=== PATIENT | female | born 1990 | race Caucasian/White ===

== ENCOUNTER 2020-01-12 11:55 | Outpatient (NON) | payer BC, SELFPAY ==
[2020-01-12 23:36] LABS: SARS-CoV-2 RNA PCR Negative
== END 2020-01-12 11:56 ==
PROVIDERS: PCP Family Medicine; Visit Provider Physician Assistant Medical
DX: Z20.828 Contact with and (suspected) exposure to other viral communicable diseases (principal); J02.9 Acute pharyngitis, unspecified; R05 Cough
CPT/HCPCS: 87635; C9803; U0003

== ENCOUNTER 2020-01-21 06:51 | Outpatient (NON) | payer BC, SELFPAY ==
[2020-01-21 17:22] LABS: SARS-CoV-2 RNA PCR Negative
== END 2020-01-21 06:52 ==
LOC: ANHCOVIDDT 06:55
PROVIDERS: PCP Family Medicine; Visit Provider Physician Assistant Medical
DX: R05 Cough (principal); J02.9 Acute pharyngitis, unspecified; Z20.828 Contact with and (suspected) exposure to other viral communicable diseases
CPT/HCPCS: 87635; C9803; U0003

== ENCOUNTER 2022-08-14 10:28 | Outpatient (CLI) | payer OTHER, SELFPAY ==
[2022-08-14 11:25] LABS: Kit Draw Collected
== END 2022-08-14 10:29 | disposition home or self-care (01) ==
LOC: ANHGOSHLAB 10:29
PROVIDERS: PCP Family Medicine; Visit Provider Nurse Practitioner Family
DX: F41.9 Anxiety disorder, unspecified (principal); R53.83 Other fatigue
CPT/HCPCS: 36415

== ENCOUNTER → 2023-05-15 10:38 | Outpatient (CLI) | payer OTHER, SELFPAY ==
--- NOTE | ~2023-05-15 | XR_ITS ---
Right foot Technique: AP, oblique, and lateral views were obtained. Clinical History: Heel pain Findings: No acute fracture or dislocation is seen. Osseous alignment is anatomic. Joint spaces are p reserved without erosive or degenerative change. Soft tissues are unremarkable. Impression: Unremarkable right foot radiographs. Reviewed, dictated and finalized at [facility]. RAL DIRECTOR AND EMBALMER Impression: Unremarkable right foot radiographs.
== END ==
PROVIDERS: PCP Family Medicine; Visit Provider Nurse Practitioner Family
DX: M79.671 Pain in right foot (principal)
CPT/HCPCS: 73630

== ENCOUNTER 2024-01-02 12:51 | Outpatient (CLI) | payer OTHER, SELFPAY ==
--- NOTE | ~2024-01-02 | MMUS_ITS ---
EXAMINATION: US breast RT limited, MM diagnostic chad BI w padmini HISTORY: Palpable right breast abnormality TECHNIQUE: Additional 3-D tomosynthesis images of the breasts were performed and synthetic 2-D images were generated. CAD analysis was submitted and interpreted. High resolution Limited right breast ult rasound was performed. COMPARISON: None BREAST PARENCHYMAL COMPOSITION: Not dense: There are scattered areas of fibroglandular density. FINDINGS: MAMMOGRAPHIC FINDINGS: There are no suspicious masses, calcifications or architectural distortion in either breast to sugges t malignancy. ULTRASOUND: Limited right breast ultrasound: Normal heterogeneous echotexture without focal solid or cystic mass. IMPRESSION: 1. No evidence for malignancy in either breast. 2. Routine yearly screening mammogram and regular clinical breast examination are recommended. BI-RADS Category 1: Negative Reviewed, dictated and finalized at location B. IMPRESSION: 1. No evidence for malignancy in either breast. 2. Routine yearly screening mammogram and regular clinical breast examination a re recommended. BI-RADS Category 1: Negative
== END 2024-01-02 12:52 | disposition home or self-care (01) ==
LOC: ANHIMG 12:53
PROVIDERS: PCP Family Medicine; Visit Provider Obstetrics & Gynecology
DX: N63.10 Unspecified lump in the right breast, unspecified quadrant (principal)
CPT/HCPCS: 76642; 77062; 77066; G0279

== ENCOUNTER 2024-11-23 06:42 | Observation (INO) | payer OTHER, SELFPAY ==
--- NOTE | 2024-11-23 06:42 | OBADM ---
This patient, Violetta Kinney, admitted to the OB room Labor/Delivery/Recovery 105 for observation. Patient/family oriented to hospital policies and general routines including ID bracelet, bed and alarms, visiting hours, pain management, procedures, bathroom and other care routines, personal items, smoking policy, room service/diet, and visiting hours. Patient/Family are encouraged to report perceived risks to care and to ask questions if they do not understand what they are told or what they should do.
--- OUTSIDE RECORDS SUMMARY | 2024-11-23 09:23 | XMS_ITS | Clinical Summary ---
Author Organization [facility] Address [address] [place] [address] Care Team Providers Care Dentist Name Role Phone Johnnie Steel MD Primary Care Provider [phone] Source Comments [facility],non-owned Affiliates and Associated Physician Practices is amultiple site organization consisting of ambulatory clinics and hospital sitesin [place], [place], [place] and [place]. This disclosure is being madepursuant to the Care Everywhere program and may not contain all information available regarding this patient. Last updated 17.[facility] Allergies No known active allergies Medications * Be aware that medications may not be up to date on this document. Alwaysverify current medications with the patient. Vit-Fe Fumarate-FA ( VITAMIN) 27-0.8 MG tablet Take 1 tablet by mouth once daily Active Family History Medical History Relation Name Comments CVA Father Hypertension Father Other - Cardiac Father A Fib Relation Name Status Comments Father Social History Tobacco Use Types Packs/Day Years Used Date Smoking Tobacco: Never Smokeless Tobacco: Never Comments No Sex and Gender Information Value Date Recorded Sex Assigned at Not on file Legal Sex Female 2:51 PM CDT Gender Identity Not on file Sexual Orientation Not on file Last Filed Vital Signs Vital Sign Reading Time Taken Comments Blood Pressure 118/80 11/06/2017 6:49 PM CDT Pulse 63 11/06/2017 6:49 PM CDT Temperature 36.8 C (98.3 F) 11/06/2017 6:49 PM CDT Respiratory Rate 16 11/06/2017 6:49 PM CDT Oxygen Saturation 98% 11/06/2017 6:49 PM CDT Inhaled Oxygen Concentration - - Weight 80.7 kg (178 lb) 11/06/2017 6:49 PM CDT Height 167.6 cm (5' 6) 11/06/2017 6:49 PM CDT Body Mass Index 28.73 11/06/2017 6:49 PM CDT Plan of Treatment Health Maintenance Due Date Last Done Comments HIV SCREENING 2003 HEPATITIS C SCREENING 05/10/2006 DTAP/TDAP/TD VACCINES (1 - Tdap) 2007 HEPATITIS B VACCINE (1 of 3 - 19+ 3-dose series) 2007 HPV VACCINE (1 - 3-dose SCDM series) 2015 DEPRESSION SCREENING 03/18/2024 COVID-19 VACCINE (1 - 2023-2 5 season) 2024 INFLUENZA VACCINE (#1) 2024 ZOSTER VACCINE (1 of 2) 2038 HIB VACCINE Aged Out No longer eligi ble based on patient's age to complete this topic MENINGOCOCCAL (Group B) VACC INE SHARED DECISION-MAKING Aged Out No longer eligibl e based on patient's age to complete this topic MENINGOCOCCAL GROUPS A/C/Y/W VACCINE Aged Out No longer eligible b ased on patient's age to complete this topic PNEUMOCOCCAL VACCINE Aged Out No long er eligible based on patient's age to complete this topic Care Teams Dentist Relationship Specialty Start Date End Date Johnnie Steel MD [address] [place] [id number] PCP - General Family Medicine 11/06/17
[2024-11-23 09:26] VITALS: BMI 35.6
--- NOTE | 2024-11-24 10:32 | PM.OBTRLD ---
OB - Triage/Final Diagnosis Visit Information Comments/Additional reasons for admission: I have assessed the risk for this patient, Violetta Kinney, and determined that she would benefit from observation care. Final Diagnosis (1) Irregular contractions: Code(s): O47.9 - False labor, unspecified Status: Acute
== END 2024-11-23 09:36 | disposition home or self-care (01) ==
PROVIDERS: Admitting Provider Obstetrics & Gynecology; PCP Family Medicine; Visit Provider Obstetrics & Gynecology
DX: O47.1 False labor at or after 37 completed weeks of gestation (principal); Z3A.38 38 weeks gestation of pregnancy
CPT/HCPCS: G0378; G0379

== ENCOUNTER 2024-12-01 10:13 | Inpatient (IN) | payer OTHER, SELFPAY ==
[2024-12-01] VITALS (122 sets, daily range): BP systolic 76–157; BP diastolic 35–105; PULSE 56–230; RESP 18; TEMP 36.6–37.3; O2SAT 95–100; BMI 35.2
--- NOTE | 2024-12-01 11:06 | LDADM ---
This patient, Violetta Kinney, was admitted to Labor/Delivery/Recovery 106 on 12/01/24 at 10:13. Plans for labor, pain management and were discussed with patient. Patient/family oriented to hospital policies and general routines including ID bracelet, bed and alarms, visiting hours, pain management, procedures, bathroom and other care routines, personal items, smoking policy, room service/diet and guest tray routines, security routines, and visiting hours. Patient/Family are encouraged to report perceived risks to care and to ask questions if they do not understand what they are told or what they should do. See OBIX for further documentation.
[2024-12-01 11:40] LABS: OBXCEM ROM Plus Positive (Negative)
[2024-12-01 11:51] LABS: Hematocrit 36.2 % (37.0-47.0); Hemoglobin 12.1 g/dL (12.0-15.0); Immature Granulocyte Percent A 0.5 % (0-0.5); Lymphocytes Absolute Auto 2.07 K/mm3 (0.9-3.2); Mean Corpuscular HGB Conc 33.4 g/dl (32-36); Mean Corpuscular Hemoglobin 31.7 pg (26-34); Mean Corpuscular Volume 94.8 fl (80-100); Nucleated Red Blood Cells Absolute Auto 0.000 K/mm3 (0.0-0.012); Nucleated Red Blood Cells Perc 0.0 % (0.0-0.2); Platelet Count Result 195 k/mm3 (150-375); Red Blood Count 3.82 M/mm3 (4.2-5.4); White Blood Count 7.5 K/mm3 (4.5-10.0)
[2024-12-01] MEDS: LACTATED RINGERS 1,000 ML 125 ML IV CONT ×2 (11:55→18:06)
[2024-12-01] MEDS: OXYTOCIN 30 UNITS/NS 500 ML 30 UNITS/500 ML BAG IV CONT (11:59)
[2024-12-01 12:12] LABS: Alanine Aminotransferase 10 U/L (6-35); Albumin Level 3.4 g/dL (3.5-5.1); Alkaline Phosphatase 231 U/L (38-126); Anion Gap 7 mmol/L (4-12); Aspartate Amino Transferase 30 U/L (14-36); Bilirubin,Total 0.2 mg/dL (0.2-1.3); Blood Urea Nitrogen 8 mg/dL (7-17); Calcium 9.6 mg/dL (8.4-10.2); Carbon Dioxide 21 mmol/L (22-30); Chloride 108 mmol/L (98-107); Estimated CRCL calculation 141 ml/min; Estimated Glomerular Filt Rate > 60; Glucose 94 mg/dL (65-110); Potassium 4.0 mmol/L (3.4-5.0); Sodium 136 mmol/L (137-145); Total Protein 6.3 g/dL (6.3-8.2); Uric Acid 4.3 mg/dL (2.5-7.5)
--- OUTSIDE RECORDS SUMMARY | 2024-12-01 12:38 | XMS_ITS | Clinical Summary ---
Author Organization [facility] Address [address] [place] [address] Care Team Providers Care Micrographics Services Supervisor Name Role Phone Johnnie Steel MD Primary Care Provider [phone]- [phone] Source Comments [facility],non-owned Affiliates and Associated Physician Practices is amultiple site organization consisting of ambulatory clinics and hospital sitesin [place], [place], [place] and [place]. This disclosure is being madepursuant to the Care Everywhere program and may not contain all information available regarding this patient. Last updated 17.[facility] Allergies No known active allergies Medications * [...] age to complete this topic Care Teams Micrographics Services Supervisor Relationship Specialty Start Date End Date Johnnie Steel MD [address] [place] [phone] PCP - General Family Medicine 11/06/17
[2024-12-01 12:46] LABS: Syphilis IgG/IgM Antibody Non-Reactive (Nonreactive)
--- NOTE | 2024-12-01 12:54 | WPDOBADMIT ---
Obstetrics - Admit Note Admission Note: record reviewed. No pertinent additions to the history and/or any subsequent changes in the physical findings that are not consistent with the expected course of the were found. Patient presents with SROM at unknown time, possibly as early as Saturday afternoon 11/29. No fevers or chills. FHR category I, SVE 3cm per RN. Start pitocin per protocol and ampicillin for +GBS. Additions to the history and/or subsequent changes in the physical findings follow. None.
[2024-12-01] MEDS: AMPICILLIN SODIUM 2 GM in SODIUM CHLORIDE 0.9% IV 100 ML 200 ML IVPB (15:25)
[2024-12-01] MEDS: LACTATED RINGERS 1,000 ML 999 ML IV CONT (16:38)
--- NOTE | 2024-12-01 17:04 | WPDANESEPP ---
Anes - Eval Pre Procedure Procedure: labor pain management Date/Time: 12/01/24 17:04 Surgeon: Boy Preop Diagnosis: pain during labor Pre Op Diagnosis: SROM Patient Data Age: 34 Gender: F Height: 1.68 m Weight: 99 kg Last Vital Signs Temp 98.7 F 12/01/24 15:00 Pulse 104 H 12/01/24 17:00 Resp 18 12/01/24 13:05 BP 157/79 H 12/01/24 17:00 Allergies Allergy/AdvReac Type Severity Reaction Status Date / Time No Known Allergies Allergy Unknown Verified 11/05/24 15:51 Home Medications ?Medication ?Instructions ?Recorded ?Confirmed ?Type vits no.126-ferrous fum tablet PO 09/11/24 09/11/24 History 28 mg iron-folic acid 800 mcg tablet (Classic ) ferrous sulfate 137 mg (45 mg 137 mg PO DAILY 11/05/24 11/05/24 History iron) tablet,extended release (Slow Fe) Laboratory Tests 12/01/24 12/01/24 10:59 11:37 WBC 7.5 K/mm3 (4.5-10.0) RBC 3.82 L M/mm3 (4.2-5.4) Hgb 12.1 g/dL (12.0-15.0) Hct 36.2 L % (37.0-47.0) MCV 94.8 fl (80-100) MCH 31.7 pg (26-34) MCHC 33.4 g/dl (32-36) RDW 14.0 % (11.5-14.5) Plt Count 195 k/mm3 (150-375) MPV 11.0 H fl (7.4-10.4) Immature Gran % (Auto) 0.5 % (0-0.5) Neut % (Auto) 63.4 % (45.5-73.1) Lymph % (Auto) 27.5 % (18.3-44.2) Casey % (Auto) 8.1 % (2.6-8.5) Eos % (Auto) 0.4 % (0-4.4) Baso % (Auto) 0.1 L % (0.2-1.2) Lymph # (Auto) 2.07 K/mm3 (0.9-3.2) Casey # (Auto) 0.6 K/mm3 (0.1-0.6) Eos # (Auto) 0.0 K/mm3 (0-0.3) Baso # (Auto) 0.0 K/mm3 (0.0-0.1) Abs Immat Gran (auto) 0.04 H K/mm3 (0.00-0.031) Absolute Neuts (auto) 4.8 K/mm3 (1.3-6.7) Absolute Nucleated RBC 0.000 K/mm3 (0.0-0.012) Nucleated RBC % 0.0 % (0.0-0.2) Sodium 136 L mmol/L (137-145) Potassium 4.0 mmol/L (3.4-5.0) Chloride 108 H mmol/L (98-107) Carbon Dioxide 21 L mmol/L (22-30) Anion Gap 7 mmol/L (4-12) BUN 8 mg/dL (7-17) Creatinine 0.55 L mg/dL (0.7-1.0) Estim Creat Clear Calc 141 ml/min Estimated GFR > 60 (59 - ) Glucose 94 mg/dL (65-110) Uric Acid 4.3 mg/dL (2.5-7.5) Calcium 9.6 mg/dL (8.4-10.2) Total Bilirubin 0.2 mg/dL (0.2-1.3) AST 30 U/L (14-36) ALT 10 U/L (6-35) Alkaline Phosphatase 231 H U/L (38-126) Total Protein 6.3 g/dL (6.3-8.2) Albumin 3.4 L g/dL (3.5-5.1) Membranes Rupture Rom plus positive (Negative) Syphilis IgG/IgM Ab Non-reactive (Nonreactive) Blood Type A Positive Antibody Screen Negative Patient hx anesthesia problems: none Family hx anesthesia problems: none Results Review: All pre-operative results and documents have been reviewed as part of the pre-operative evaluation. [facility] Past Medical History Medical History Migraine headache with aura Right wrist pain Sacroiliac inflammation Family History Family History Grandparent Diabetes mellitus Family history of malignant neoplasm of stomach Carcinoma of colon Family history of malignant neoplasm of breast Sibling Family history of migraine headaches Breast cancer stage 1 remission Father Hypertension Cerebrovascular accident Mother Asthma Social History Social History Smoking status: Never smoker Second hand tobacco smoke exposure: No Alcohol intake: never Substance use: never Substance use type: does not use Lack of Transportation: No Lack of Food: Never True Current Housing: I Have Housing Concerned About Future Housing: No Difficulty Paying Gas/Electric Bills: No Difficulty Paying for Meds: No Currently Unemployed: No Education: Bachelor's Degree Difficulty w/ Childcare or Family Care: No Occupation/Education: occupation Gender identity (if verbalized by the patient): Female Spiritual care concerns: No Exam Day of Procedure 12/01/24 17:04
[2024-12-01] MEDS: PHENYLEPHRINE 1,000 MCG/10 ML SYRINGE 100 MCG IV PUSH ×2 (18:00→18:30)
[2024-12-01] MEDS: AMPICILLIN SODIUM 1 GM in SODIUM CHLORIDE 0.9% IV 50 ML 100 ML IVPB ×2 (19:22→23:12)
[2024-12-02] VITALS (27 sets, daily range): BP systolic 114–201; BP diastolic 34–136; PULSE 77–180; RESP 14–16; TEMP 36.6–37.2; O2SAT 97–100
--- NOTE | 2024-12-02 00:53 | PM.OBPRVD ---
OB - Vaginal Delivery Note Procedure Delivery date: 12/02/24 Events: Positive Group B Strep (GBS) and Other (possible prolonged rupture of membranes) Delivery augmentation: Rupture of Membranes (forebag) and Pitocin Delivery monitor: External FHT and Internal Uterine Route of delivery: Episiotomy description: None Laceration Description: Superficial (hemostatic) Specimen: No Quantitative Blood Loss (ml): 100 Anesthesia type: Epidural Disposition: Floor Complications: No immediate complications Narrative: See H&P and notes for details on patient's admission and labor. She progressed to complete cervical dilation and at the appropriate time began pushing. With adequate expulsive efforts by the mother, the baby's head was delivered without difficulty. Nuchal cord was not present. The baby's right shoulder was anterior and delivered under the pubic symphysis without difficulty. The posterior shoulder and the rest of the baby delivered without difficulty. The umbilical cord was doubly clamped and cut after 60 seconds of delayed cord clamping. Care of the was then assumed by the nursing staff. Baby Date of : 12/02/24 Time of : 00:41 Gestational Age by Date: 37 gender: Male presentation: vertex position: Left Occiput Anterior Placenta delivery description: Expressed Cord Vessel Description: 3 Vessels and Delayed Cord Clamping
[2024-12-02] MEDS: BENZOCAINE 20% AER SPR (*SP) 56 GM CAN 1 SPRAY TOPICAL (03:53)
[2024-12-02] MEDS: WITCH HAZEL 40 PADS 1 PAD TOPICAL (03:53)
[2024-12-02] MEDS: IBUPROFEN 600 MG TABLET PO ×3 (04:29→16:19)
[2024-12-02] MEDS: ACETAMINOPHEN 325 MG TABLET 650 MG PO ×3 (04:30→16:18)
--- NOTE | 2024-12-02 08:53 | PC.NURSE ---
On 12/02/24, the student, Delfino Worrell, provided care and completed [facility] documentation on this patient. I have reviewed the student's documentation and agree with the findings.
--- NOTE | 2024-12-02 10:31 | PC.NURSE ---
Introductions were made, communication board updated. Discussed with patient her experience so far. Patient states that is going well and she feels confident latching . Patient expressed that she is having pain in her left nipple and has lanolin nipple cream at bedside that she is utilizing. Patient was given gel cooling pads and education for using the gel pads was provided by this RN. Patient encouraged to call RN to assess latch and answer any questions should they arise. Primary RN updated.
--- NOTE | 2024-12-02 17:14 | PC.NURSE ---
1715. Observed mother latching to the left breast in football position. Infant was able to maintain an appropriate latch. Mother declines nipple pain/discomfort throughout feeding. Encouraged mother to keep infant awake and nursing at the breast for as long as baby desires. Mother taught to listen for infant swallowing during feedings. Reviewed using the blue feeding sheet to record time and duration of feeding. Mother voiced understanding of the education shared, to call for assistance if the does not latch or if there is discomfort with . name/number on communication board. Reported to the Primary RN.?
[2024-12-03 04:23] LABS: Hematocrit 30.7 % (37.0-47.0); Hemoglobin 10.0 g/dL (12.0-15.0)
[2024-12-03] MEDS: IBUPROFEN 600 MG TABLET PO (06:02)
[2024-12-03] MEDS: ACETAMINOPHEN 325 MG TABLET 650 MG PO (06:03)
[2024-12-03 08:05] VITALS: BP 125/75; PULSE 96; RESP 16; TEMP 36.6; O2SAT 96
--- NOTE | 2024-12-03 08:36 | P.PNOB_ITS ---
OB - PN: Subj Subjective Date/time seen: 12/03/24 08:36 Patient comments: no complaints, pain well controlled, incisional pain, tolerating diet and flatus present OB - PN: Obj Data Labs 12/03/24 03:41 12/01/24 10:59 Labs: Laboratory Results - last 24 hr 12/03/24 03:41 Hgb 10.0 L Hct 30.7 L OB - PN A/P Plan day: 1 Plan: routine care Comments: No problems, routine care Time Spent With Patient Time: Total time spent is greater than 50% in coordination of care (as documented) at patient's floor/unit and/or counseling patient: Exam 2 Const: General: comfortable, no acute distress and alert Resp: Effort & Inspection: normal respiratory effort Auscultation: no crackles, no rales and no rhonchi Cardio: Rate: regular rate Heart sounds: no click, no murmurs and no rubs GI: Inspection: non-distended GI Palp: No Tenderness to palpation present (GI) Auscultation: normal bowel sounds Other: Incision - CDI Extrem: General: normal to inspection, no pedal edema and no calf tenderness
--- NOTE | 2024-12-03 08:36 | PM.OBDSVD ---
DS: Admitting Diagnosis Discharge Date 12/03/2024 Admitting Diagnosis Term DS: Discharge Diagnosis Discharge Diagnosis (1) Term delivered: Code(s): O80 - Encounter for full-term uncomplicated delivery Status: Acute OB - DS: Summary OB Procedures : None OB Procedures Intrapartum: Spontaneous Vag Delivery OB Procedures: : None Peripartum Data Laceration Description: Superficial (hemostatic) Episiotomy description: None Time Spent with Patient Time attestation: Total time spent providing and/or coordinating discharge services: DS: Data Data Completed and Pending Labs on day of discharge: Labs from last 24 hours 12/03/24 03:41 Hgb 10.0 L Hct 30.7 L Discharge Plan Discharge Discharging Clinician: Naeem Sebastian Patient Disposition: Home Activity: pelvic rest Diet: regular Patient Instructions: Antibiotic Form Patient Language: Norwegian Stand Alone Forms: General Discharge Information Follow-up/Referrals: Naeem Sebastian MD [Physician, UNIVERSITY RELATIONS DIRECTOR] Discharge Medications: Continued Classic 28 mg iron- 800 mcg tablet PO Slow Fe 137 mg (45 mg iron) tablet extended release 137 mg PO DAILY Date of admission: 12/01/24 10:13 Primary Care Provider: Johnnie Steel Admitting Provider: Barrie Brunson Attending physician on admission: Barrie Brunson Condition: Stable
[2024-12-03] MEDS: MULTIVIT/MIN/PREN/FOL AC/IRON TABLET 1 TAB PO (09:12)
[2024-12-03] MEDS: DOCUSATE SODIUM 100 MG CAPSULE PO (09:12)
[2024-12-04 10:32] VITALS: BP 135/77; PULSE 82; RESP 18; TEMP 37; O2SAT 100
== END 2024-12-03 14:19 | disposition home or self-care (01) | DRG 807 ==
LOC: ANHOB2 12-03 08:38 → ANHLDR 12-04 08:56
PROVIDERS: Admitting Provider Obstetrics & Gynecology; PCP Family Medicine; Visit Provider Obstetrics & Gynecology
DX: O99.824 Streptococcus B carrier state complicating childbirth (principal); Z37.0 Single live birth; Z3A.39 39 weeks gestation of pregnancy; O70.0 First degree perineal laceration during delivery; O42.12 Full-term premature rupture of membranes, onset of labor more than 24 hours following rupture
CPT/HCPCS: 36415; 80053; 84112; 84550; 85014; 85018; 85025; 86593; 86850; 86900; 86901; A9270; J0290; J2371; J2590; J2795; J7120

== ENCOUNTER 2025-01-29 21:26 | Emergency (ER) | payer OTHER, SELFPAY ==
--- NOTE | ~2025-01-29 | CT_ITS ---
CT lumbar spine without contrast CLINICAL HISTORY: R sided back pain Technique: Lumbar spine images Sagittal and coronal reformats. No contrast CT images acquired with automatic exposure control for dose reduction DLP: 1018 mGy-cm Comparison: None Findings: No fracture. No listhesis. No significant degenerative changes. No paraspinal soft tissue abnormality. Visualized visceral contents without acute abnormality. IMPRESSION: 1. No acute abnormality. Reviewed, dictated and finalized at location R. NG DIRECTOR IMPRESSION: 1. No acute abnormality.
--- NOTE | ~2025-01-29 | CT_ITS ---
EXAMINATION: CTA chest PE abdomen pel DATE: 01/30/2025 01:38 INDICATION: Shortness of breath. Right flank pain. TECHNIQUE: Computed tomography angiography (CTA) of the chest was performed with 100 mL Omnipaque-350 intravenous contrast timed to evaluate the pulmonary arteries. Coronal maximum intensity projection 3D-reconstructions were created by the technologist. Computed tomography (CT) of the abdomen and pelvis was performed with intravenous contrast. Automated exposure control and iterative reconstruction technique were employed. The dose-length product was 1252.85 mGy-cm. COMPARISON: None. FINDINGS: CTA chest: There is no pneumonia or pleural effusion. The heart size is normal. No pericardial effusion. There is no pulmonary embolus. There is mild aortic atherosclerosis. There is mild thoracic spondylosis. CT abdomen and pelvis: The liver is normal. The gallbladder is distended and demonstrates wall thickening. The spleen, pancreas, adrenal glands, and kidneys are normal. There are no dilated loops of bowel. The appendix is normal. There are no pathologically enlarged lymph nodes. There is no free intraperitoneal fluid. There is an umbilical hernia containing fat. There is mild lumbar spondylosis. IMPRESSION: 1. No pulmonary embolus. 2. Distended gallbladder with wall thickening suspicious for acute cholecystitis. 3. Umbilical hernia containing fat. Reviewed, dictated and finalized at location E. ANY MANAGER IMPRESSION: 1. No pulmonary embolus. 2. Distended gallbladder with wall thickening suspicious for acute cholecystiti s. 3. Umbilical hernia containing fat.
--- NOTE | ~2025-01-29 | XR_ITS ---
XR chest 2V HOSTORY: shortness of breath COMPARISON:[ None] FINDINGS: Frontal and lateral views of the chest were obtained. The lungs are clear. The heart size is normal in size. Pulmonary vasculature is unremarkable. Osseous structures are intact. IMPRESSION: No acute lung findings.] [ ] Reviewed, dictated and finalized at location S. EL HEADING SUPERVISOR
--- OUTSIDE RECORDS SUMMARY | 2025-01-29 21:28 | XMS_ITS | Continuity of Care Document ---
Author Organization [facility] Address [address] [place] [address] Care Team Providers Care Traffic Circuit Engineer Name Role Phone LEO ZAMARRIPA Primary Care Provider [phone] Assessment No assessment recorded. Plan of Treatment Reminders Order Date Submit Date Provider Last Modified By Organization Details Last Modified Time Details Appointments None recorded. Lab None recorded. Referral None recorded. Procedures None recorded. Surgeries None recorded. Imaging US, obstetric , limited 025 025 [facility], [address], [address], [place], [address], 17:22:23 Medication Orders None recorded. Patient TargetsNo targets recorded. Patient InstructionsNo instructions recorded. Reason for Referral None Reported. Results Created Date Observation Date Name Description Value Unit Range Abnormal Flag Note LastModifiedBy Organization Detail LastModifiedTime 06/04/1906/03/2024 drug scree n, urine Amphetamines : negati ve Not Available [facility] [address], [place], [address], 06/03/2024 17:47:42 06/04/19 25 06/03/2024 drug scree n, urine Cannabinoids : negati ve Not Available [facility] [address], [place], [address], 06/03/2024 17:47:42 06/04/19 25 06/03/2024 drug scree n, urine Cocaine: negati ve Not Available [facility] [address], [place], [address], 06/03/2024 17:47:42 06/04/19 25 06/03/2024 drug scree n, urine Opiates: negati ve Not Available [facility] [address], [place], [address], 06/03/2024 17:47:42 06/04/19 25 06/03/2024 drug scree n, urine Phenocyclidi ne: negati ve Not Available [facility] [address], [place], [address], 06/03/2024 17:47:42 06/04/19 25 06/03/2024 drug scree n, urine Barbiturates : negati ve Not Available [facility] [address], [place], [address], 06/03/2024 17:47:42 06/04/19 25 06/03/2024 drug scree n, urine Benzodiazepi romina: negati ve Not Available [facility] [address], [place], [address], 06/03/2024 17:47:42 06/04/19 25 06/03/2024 drug scree n, urine Ethanol: negati ve Not Available [facility] [address], [place], [address], 06/03/2024 17:47:42 06/04/19 25 06/03/2024 drug scree n, urine Hallucinogen s: negati ve Not Available [facility] [address], [place], [address], 06/03/2024 17:47:42 06/04/19 25 06/03/2024 drug scree n, urine Inhalants: negati ve Not Available [facility] [address], [place], [address], 06/03/2024 17:47:42 06/04/19 25 06/03/2024 drug scree n, urine Anabolic Steroids: negati ve Not Available [facility] [address], [place], [address], 06/03/2024 17:47:42 09/22/19 25 09/21/2024 HEMAT OCRIT (HCT) HCT 32.3 % (based on docume nted legal sex) 34.0-4 5.0 low Not Available [facility] (Lab) [address], [place], [address], 09/22/2024 12:01:19 09/22/19 25 09/21/2024 HEMOG LOBIN (HGB) HGB 10.4 g/dL (based on docume nted legal sex) 11.6-1 5.4 low Not Available [facility] (Lab) [address], [place], [address], 09/22/2024 12:01:20 09/22/19 25 09/21/2024 GTT - GESTA JULIUS L GARFIELD Beltrán, ACOG OB glucose, 1 hour screen 146 mg/dL 70-135 high Not Available [facility] (Lab) [address] [place], [address], 09/22/2024 12:01:20 09/22/19 25 09/21/2024 HIV 1/2 ANTIG EN/AN TIBOD Y, REFLE X CONFI RMATI ON HIV antigen/anti body Nonrea ctive nonrea ctive HIV-1 antig en and HIV-1 /HIV- 2 antib odies were not detec greta. No labor atory evide nce of HIV infec tion. Not Available [facility] (Lab) [address], [place], [address], 09/22/2024 12:01:21 09/22/19 25 09/21/2024 RPR SCREE N, REFLE X TITER /CONF IRMAT ION RPR qualitative Nonrea ctive nonrea ctive Not Available [facility] (Lab) [address] [place], [address], 09/22/2024 12:01:21 09/29/19 25 09/28/2024 GTT - GESTA JULIUS L, 3 HOUR, ACOG glucose, fasting acog 84 mg/dL 70-94 Not Available [facility] (Lab) [address] [place], [address], 09/29/2024 03:44:44 09/29/19 25 09/28/2024 GTT - GESTA JULIUS L, 3 HOUR, ACOG glucose, 1 hour acog 181 mg/dL 70-179 high Not Available [facility] (Lab) [address] [place], [address], 09/29/2024 03:44:44 09/29/19 25 09/28/2024 GTT - GESTA JULIUS L, 3 HOUR, ACOG glucose, 2 hour acog 150 mg/dL 70-154 Not Available [facility] (Lab) [address] [place], [address], 09/29/2024 03:44:44 09/29/19 25 09/28/2024 GTT - GESTA JULIUS L, 3 HOUR, ACOG glucose, 3 hour acog 127 mg/dL 70-139 Not Available [facility] (Lab) [address] [place], [address], 09/29/2024 03:44:44 06/03/19 25 06/02/2024 US, obste tric, nucha l trans lucen cy No observ ation record ed. [email or web address] Vivi [address], [place], [address], 06/02/2024 22:49:25 06/03/19 25 06/02/2024 US, obste tric, nucha l trans lucen cy No observ ation record ed. [address], [place], [address], 06/02/2024 18:53:48 07/21/19 25 07/20/2024 US, obste tric, 2nd or 3rd trime ster No observ ation record ed. [address], [place], [address], 07/20/2024 18:43:23 07/21/19 25 07/20/2024 US, obste tric, follo w-up No observ ation record ed. [email or web address] Vivi [address], [place], [address], 08/06/2024 14:42:59 10/20/19 25 10/19/2024 US, obste tric, follo w-up No observ ation record ed. [address], [place], [address], 10/19/2024 18:42:11 10/20/19 25 10/19/2024 US, obste tric, follo w-up No observ ation record ed. Vivi [address], [place], [address], 10/21/2024 16:49:04 11/03/19 25 11/02/2024 US, obste tric, limit ed No observ ation record ed. [address], [place], [address], 11/02/2024 18:27:07 11/03/19 25 11/02/2024 US, obste tric, limit ed No observ ation record ed. LESTER Vivi [address], [place], [address], 11/02/2024 17:21:55 Result Notes None recorded. Problems Name Problem SNOMED Code Status Onset Date Resolution Date Notes Provider Name and Address Organization Details Recorded Time Complete Completed 201209/12/2020 Legally unspecif ied , complete , without mention of complica tion;Rec orded Elsewher e: No Locat ion: [facility] S ource: EHR Senior Ruby Developer june: N Donnellti ce ID: 0001 Miko lable Time: 06:30:00 PM Gracy Mireles [facility] 1 16:59:22 Primigra james [id number] Completed 201209/12/2020 Supervis ion of normal first pregnanc y;Record ed Elsewher e: No Locat ion: [facility] S ource: EHR Senior Ruby Developer june: N Donnellti ce ID: 0001 Miko lable Time: 05:15:00 PM Gracy Mireles [facility] 1 17:00:04 Pregnanc y test positive [id number] Completed 201209/12/2020 Pregnanc y examinat ion or test, positive result;R ecorded Elsewher e: No Locat ion: [facility] S ource: EHR Senior Ruby Developer june: N Donnellti ce ID: 0001 Miko lable Time: 05:15:00 PM Gracy Mireles [facility] 1 17:00:00 Ultrason ography Completed 201209/12/2020 Antenata l screenin g for malforma tion using ultrason ics;Rich rded Elsewher e: No Locat ion: [facility] S ource: EHR Senior Ruby Developer june: N Practi ce ID: 0001 Miko lable Time: 04:30:00 PM Gracy Mireles [facility] 1 17:00:21 Antenata l screenin g Completed 201209/12/2020 Antenata l screenin g for malforma tion using ultrason ics;Rich rded Elsewher e: No Locat ion: [facility] S ource: EHR Senior Ruby Developer june: N Donnellti ce ID: 0001 Miko lable Time: 04:30:00 PM Gracy dang [facility] 16:59:17 Congenit al malforma tion [id number] Completed 201209/12/2020 Antenata l screenin g for malforma tion using ultrason ics;Rich rded Elsewher e: No Locat ion: Pedro Luis abbott [facility] S ource: EHR Senior Ruby Developer june: N Practi ce ID: 0001 Miko lable Time: 04:30:00 PM Gracy dang [facility] 16:59:24 Trauma to perineum and/or vulva during delivery [id number] Completed 201309/12/2020 Unspecif ied trauma to perineum and vulva, unspecif ied as to episode of care in pregnanc y;Record ed Elsewher e: No Locat ion: Pedro Luis [facility] S ource: EHR Senior Ruby Developer june: N Donnellti ce ID: 0001 Miko lable Time: 11:30:00 AM Gracy Mireles [facility] 17:00:18 Routine antenata l care Completed 201309/12/2020 Supervis ion of other normal pregnanc y;Practi ce ID: 0001 Gracy Mireles [facility] 17:00:05 Excessiv e growth affectin g manageme nt of mother [id number] Completed 201309/12/2020 Excessiv e growth, affectin g manageme nt of mother, antepart um;Recor ded Elsewher e: No Locat ion: Pedro Luis milena [facility] S ource: EHR Senior Ruby Developer june: N Practi ce ID: 0001 Miko lable Time: 04:00:00 PM Gracy dang [facility] 16:59:39 Delivery normal [id number] Completed 201309/12/2020 Normal delivery ;Practic e ID: 0001 Gracy Mireles [facility] 16:59:37 Single live from luciao n pregnanc y [id number] Completed 201309/12/2020 Mother with single liveborn ;Practic e ID: 0001 Gracy dang, [facility] 17:00:10 Pregnanc y test negative [id number] Completed 201309/12/2020 Pregnanc y examinat ion or test, negative result;R ecorded Elsewher e: No Locat ion: Pedr oLuis abbott [facility] S ource: EHR Senior Ruby Developer june: N Practi ce ID: 0001 Miko lable Time: 10:30:00 AM Gracy Mireles [facility] 16:59:59 Postpart um care Completed 201309/12/2020 Post Followup ;Recorde d Elsewher e: No Locat ion: Pedro Luis [facility] S ource: EHR Senior Ruby Developer june: N Practi ce ID: 0001 Miko lable Time: 10:30:00 AM Gracy Mireles [facility] 16:59:55 Menstrua tion finding Completed 201309/12/2020 Menometr orrhagia ;Recorde d Elsewher e: No Locat ion: [facility] S ource: EHR Senior Ruby Developer june: N Practi ce ID: 0001 Miko lable Time: 09:00:00 AM Gracy Mireles [facility] 16:59:49 Postoper ative follow-u p visit Completed 201309/12/2020 Follow-u p examinat ion, followin g unspecif ied surgery; Recorded Elsewher e: No Locat ion: [facility] S ource: EHR Senior Ruby Developer june: N Practi ce ID: 0001 Miko lable Time: 04:30:00 PM Gracy Mireles [facility] 16:59:54 Amenorrh ea [id number] Completed 201309/12/2020 Amenorrh ea;Recor ded Elsewher e: No Locat ion: Pedro Luis abbott [facility] S ource: EHR Senior Ruby Developer june: N Donnellti ce ID: 0001 Miko lable Time: 04:00:00 PM Gracy Mireles [facility] 16:59:15 Vaginiti s and vulvovag initis Completed 201309/12/2020 Vaginiti s and vulvovag initis, unspecif ied;Rich rded Elsewher e: No [facility] S ource: EHR Senior Ruby Developer june: N Practi ce ID: 0001 Miko lable Time: 04:00:00 PM Gracy Mireles [facility] 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 17:00:15 Overweig ht [id number] Completed 201309/12/2020 Overweig ht;Recor ded Elsewher e: No Locat ion: [facility] S ource: EHR Senior Ruby Developer june: N Practi ce ID: 0001 Miko lable Time: 04:00:00 PM Gracy Mireles [facility] 16:59:52 Speciali zed medical examinat ion Completed 201409/12/2020 Other specifie d chlamydi al diseases ;Recorde d Elsewher e: No Locat ion: [facility] S ource: EHR Senior Ruby Developer june: N Practi ce ID: 0001 Miko lable Time: 05:15:00 PM Gracy Mireles [facility] 17:00:16 Venereal disease screenin g Completed 201409/12/2020 Screenin g examinat ion for venereal disease; Recorded Elsewher e: No [facility] S ource: EHR Senior Ruby Developer june: N Practi ce ID: 0001 Miko lable Time: 05:15:00 PM Gracy Mireles [facility] 17:00:25 Leukorrh ea [id number] Completed 201409/12/2020 Leukorrh ea, not specifie d as infectiv e;Record ed Elsewher e: No Locat ion: [facility]ena [facility] S ource: EHR Senior Ruby Developer june: N Practi ce ID: 0001 Miko lable Time: 05:15:00 PM Gracy Mireles [facility] 16:59:45 Acute vaginiti s [id number] Completed 201509/12/2020 Acute vaginiti s;Record ed Elsewher e: No [facility] S ource: EHR Senior Ruby Developer june: N Practi ce ID: 0001 Miko lable Time: 02:30:00 PM Gracy Mireles [facility] 16:59:14 Hemorrho ids [id number] Completed 201509/12/2020 Hemorrho id;Recor ded Elsewher e: No Locat ion: Maribel milena [facility] S ource: EHR Senior Ruby Developer june: N Practi ce ID: 0001 Miko lable Time: 02:30:00 PM Gracy Mireles [facility] 16:59:[address] Concept Completed 201509/12/2020 Encntr for general adult medical exam w/o abnormal findings ;Recorde d Elsewher e: No [facility] S ource: EHR Senior Ruby Developer june: N Practi ce ID: 0001 Miko lable Time: 10:30:00 AM Gracy dang [facility] 17:00:12 Pregnanc y detectio n examinat ion Completed 201609/12/2020 Encounte r for pregnanc y test, result positive ;Recorde d Elsewher e: No Locat ion: [facility] S ource: EHR Senior Ruby Developer june: N Practi ce ID: 0001 Miko lable Time: 09:45:00 AM Gracy dang [facility] 16:59:57 Secondar y amenorrh ea [id number] Completed 201609/12/2020 Secondar y amenorrh ea;Pract ice ID: 0001 Gracy dang, [facility] 17:00:08 Normal pregnanc y in multigra james [id number] 4106 Completed 201609/12/2020 Encounte r for supervis ion of other normal pregnanc y, 2nd trimeste r;Record ed Elsewher e: No Locat ion: [facility] S ource: EHR Senior Ruby Developer june: N Donnellti ce ID: 0001 Miko lable Time: 08:30:00 AM Gracy dang [facility] 16:59:50 Prematur e rupture of membrane s [id number] Completed 201609/12/2020 Full-ter m epi ROM, unsp time betw rupture and onset labor;Pr actice ID: 0001 Gracy dang, [facility] 17:00:02 Lacerati on of female perineum Completed 201609/12/2020 First degree perineal lacerati on during delivery ;Practic e ID: 0001 Gracy dang, [facility] 16:59:44 Gestatio n period, 39 weeks [id number] Completed 201609/12/2020 39 weeks gestatio n of pregnanc y;Practi ce ID: 0001 Gracy Mireles [facility] 16:59:40 Lochia finding Completed 201609/12/2020 Encounte r for routine postpart um follow-u p;Record ed Elsewher e: No Locat ion: Pedro [facility] S ource: EHR Senior Ruby Developer june: N Practi ce ID: 0001 Miko lable Time: 09:45:00 AM Gracy Mireles [facility] 16:59:47 Uses combined oral contrace ption [id number] Completed 201709/12/2020 Encounte r for initial prescrip tion of contrace ptive pills;Re corded Elsewher e: No Locat ion: Pedro [facility] S ource: EHR Senior Ruby Developer june: N Practi ce ID: 0001 Miko lable Time: 10:15:00 AM Gracy Mireles [facility] 16:59:20 Body mass index 25-29 - overweig ht [id number] Completed 201709/12/2020 Body mass index (BMI) 28.0-28. 9, adult;Re corded Elsewher e: No Locat ion: Pedro [facility] S ource: EHR Senior Ruby Developer june: N Practi ce ID: 0001 Miko lable Time: 10:15:00 AM Gracy Mireles [facility] 16:59:19 Screenin g for malignan t neoplasm of cervix Completed 201709/12/2020 Screenin g for malignan t neoplasm s of the cervix;R ecorded Elsewher e: No Locat ion: [facility] S ource: EHR Senior Ruby Developer june: N Practi ce ID: 0001 Miko lable Time: 10:15:00 AM Gracy Mireles [facility] 17:00:[address] Concept Completed 201809/12/2020 Encntr for lumber salvager exam (general ) (routine ) w/o abn findings ;Recorde d Elsewher e: No Locat ion: Pedro Luis [facility] S ource: EHR Senior Ruby Developer june: N Ken ce ID: 0001 Miko lable Time: 11:15:00 AM Gracy Mireles [facility] 17:00:13 Pregnanc y [id number] Completed 202412/29/2024 Christinamode Osorio [facility], [facility] 10:32:08 Multigra james of advanced maternal age [id number] Completed 2024 Kim Chilel [facility] 14:42:40 Problem Notes None recorded. Procedures Surgical History Date Name Laterality Status Provider Name and Address Organization Details Recorded Time 09/13/19 21 Date of Last Pap Smear completed Norma Freeman [facility] 12/03/2023 17:17:36 03/18/19 14 Hysteroscopy completed Gracy Mireles [facility] 09/12/2020 17:03:41 Imaging Results None recorded. Procedure Notes None recorded. Medical Equipment None Reported. Allergies No known drug allergies Medications Name Sig Start Date Stop Date Status Note LastModified by Organization Details LastModified Time fluoxetin e 40 mg capsule TAKE 1 CAPSULE BY MOUTH DAILY 07/19 completed Not Available Not Available Not Available fluconazo le 150 mg tablet TAKE 1 TABLET BY MOUTH 1 TIME 07/01 completed Not Available Not Available Not Available FreeStyle Test strips TEST FOUR TIMES DAILY active Not Available Not Available No t Available fluconazo le 200 mg tablet TAKE 1 TABLET BY MOUTH EVERY OTHER DAY FOR 3 DOSES 05/30 completed Not Available Not Available Not Available FreeStyle Lancets 28 gauge TEST FOUR TIMES DAILY active Not Available Not Available No t Available metronida zole 0.75 % (37.5 mg/5 gram) vaginal gel INSERT ONE APPLICAT ORFUL VAGINALL Y AT BEDTIME FOR 5 NIGHT 07/19 completed Not Available Not Available Not Available metronida zole 500 mg tablet TAKE 1 TABLET BY MOUTH TWICE DAILY FOR 5 DAYS 08/21 completed Not Available Not Available Not Available Tazorac 0.05 % topical cream apply by topical route every day to the affected area(s) 12/16 completed Prescrib ed Elsewher e: Yes Loca tion: Pedro Luis abbott [facility] odify By: ary marin DateTime : 10/29/19 11 10:16:19 AM Not Available Not Available Not Available nystatin- triamcino lone 100,000 unit/gram -0.1 % topical ointment APPLY TOPICALL Y TO THE AFFECTED AREA TWICE DAILY FOR 7 DAYS NEEDED 05/30 completed Not Available Not Available Not Available Stool Softener (docusate calcium) 240 mg capsule take 1 capsule by oral route every day as needed 10/22 completed Prescrib ed Elsewher e: Yes Loca tion: Pedro Luis abb[facility] odify By: justina [email or web address] DateTime : 09/01/19 14 10:30:00 AM Not Available Not Available Not Available prednison e 50 mg tablet TAKE 1 TABLET BY MOUTH DAILY 05/06 completed Not Available Not Available Not Available Vitamin D2 1,250 mcg (50,000 unit) capsule take 1 capsule (70695CM ITS) by oral route every week 08/31 completed Prescrib ed Elsewher e: No Locat ion: Pedro Luis abbott [facility] odify By: [email or web address] En counter DateTime : 01/29/20 13 11:56:09 AM Not Available Not Available Not Available norethind lsia (contrace ptive) 0.35 mg tablet take 1 tablet by oral route every day 12/16 completed Prescrib ed Elsewher e: No Locat ion: Pedro Luis abbott [facility] odify By: justina [email or web address] DateTime : 09/01/19 14 10:30:00 AM Not Available Not Available Not Available sertralin e 20 mg/mL oral concentra te 04/18 completed Prescrib ed Elsewher e: Yes Loca tion: Pedro Luis abbott [facility] odify By: [email or web address] Encount er DateTime : 07/06/19 16 02:30:00 PM Not Available Not Available Not Available fluoxetin e 20 mg capsule TAKE 1 CAPSULE BY MOUTH DAILY 05/06 completed Not Available Not Available Not Available cholecalc iferol (vitamin D3) 125 mcg (5,000 unit) capsule TAKE 1 CAPSULE BY MOUTH DAILY 07/19 completed Not Available Not Available Not Available dicyclomi ne 10 mg capsule TAKE 1 CAPSULE BY MOUTH THREE TIMES DAILY NEEDED FOR ABDOMINA L PAIN 05/06 completed Not Available Not Available Not Available Ortho Tri-Cycle n (28) 0.18 mg(7)/0.2 15mg(7)/0 .25 mg(7)-0.0 35 mg tablet take 1 tablet by oral route every day 12/16 completed Prescrib ed Elsewher e: No Locat ion: [facility]ena [facility] odify By: justina [email or web address] DateTime : 10/23/19 14 09:00:00 AM Not Available Not Available Not Available erythromy michel with ethanol 2 % topical gel apply by topical route 2 times every day a thin layer to the affected area(s) in the morning and evening 01/27 completed Prescrib ed Elsewher e: No Locat ion: [facility] odify By: parag [email or web address] DateTime : 01/29/20 13 11:56:09 AM Not Available Not Available Not Available Duac 1.2 % (1 % base)-5 % topical gel apply by topical route 2 times every day to the affected area(s) in the morning and evening 12/16 completed Prescrib ed Elsewher e: Yes Loca tion: Pedro Luis [facility] odify By: ary marin DateTime : 10/29/19 11 10:16:19 AM Not Available Not Available Not Available active Not Available Not Avai lable Not Available multivita min active Not Available Not Available Not Available FreeStyle Lite Meter kit USE DIRECTED active Not Available Not Available No t Available Triveen-D uo DHA 29 mg-1 mg-400 mg oral pack take 2 by Oral route every day for 30 days 01/14 completed Prescrib ed Elsewher e: No Locat ion: [facility] odify By: [email or web address] Abbott ncounter DateTime : 12/17/19 13 05:15:00 PM Not Available Not Available Not Available 28 mg iron-800 mcg tablet 07/19 completed Prescrib ed Elsewher e: Yes Loca tion: Pedro Luis abbott [facility] odify By: [email or web address] Encount er DateTime : 04/18/19 19 11:15:00 AM Not Available Not Available Not Available One Daily 27 mg iron-800 mcg tablet take 1 tablet by oral route every day 06/30 completed Prescrib ed Elsewher e: Yes Loca tion: Pedro Luis abbott [facility] odify By: parag [email or web address] DateTime : 01/28/20 14 04:00:00 PM Not Available Not Available Not Available Anusol-HC 2.5 % topical cream with perineal applicato r apply by topical route 2 times every day to the affected area(s) 08/01 completed Prescrib ed Elsewher e: No Locat ion: Pedro Luis abbott [facility] odify By: [email or web address] Encounte r DateTime : 07/06/19 16 02:30:00 PM Not Available Not Available Not Available Vitals None Recorded Social History Question Answer Notes LastModified by Organizat ion Details LastModified Time Do You Have An Advance Directive? No [email or web address] Information n ot available 11/04/2024 How Many Years Have You Consumed Alcohol? 4 [email or web address] Information not available 11/04/2024 Are You Blind Or Do You Have Difficulty Seeing? No [email or web address] Information not available 11/04/2024 What Is Your Level Of Caffeine Consumption? Moderate [email or web address] Information not available 11/04/2024 How Much Tobacco Do You Chew? None [email or web address] Information not available 11/04/2024 In The 14 Days Before Symptom Onset, Have You Had Close Contact With A Laboratory-confirme d COVID-19 While That Case Was Ill? No [email or web address] Information n ot available 11/04/2024 In The 14 Days Before Symptom Onset, Have You Had Close Contact With A Person Who Is Under Investigation For COVID-19 While That Person Was Ill? No [email or web address] Information not available 11/04/2024 Have You Been To An Area Known To Be High Risk For COVID-19? No [email or web address] Information not available 11/04/2024 Are You Deaf Or Do You Have Serious Difficulty Hearing? No [email or web address] Information not available 11/04/2024 What Type Of Diet Are You Following? REGULAR [email or web address] Information n ot available 11/04/2024 What Is The Highest Grade Or Level Of School You Have Completed Or The Highest Degree You Have Received? [id number] [email or web address] Information not available 11/04/2024 Are There Any Guns Present In Your Home? No [email or web address] Information not available 11/04/2024 Do You Use Protection During Sex? No [email or web address] Information not available 11/04/2024 Do You Use Your Seat Belt Or Car Seat Routinely? Yes [email or web address] Information not available 11/04/2024 Do You Have Smoke And Carbon Monoxide Detectors In Your Home? Yes [email or web address] Information not available 11/04/2024 How Much Tobacco Do You Smoke? No [email or web address] Information not available 11/04/2024 Do You Use Sunscreen Routinely? Yes [email or web address] Information not available 11/04/2024 Have You Used IV Drugs? No [email or web address] Information not available 11/04/2024 Do You Have Difficulty Walking Or Climbing Stairs? No Information not available 05/30/2022 Sex: Unknown Functional Status Question Answer Note LastModified by Organizat ion Details LastModified Time Do you use any illicit or recreational drugs? No [email or web address] Information not available 11/04/2024 What is your level of alcohol consumption? Occasional [email or web address] Information not available 11/04/2024 Are you able to walk independently without assistance or assistive devices? [email or web address] Information not available 11/04/2024 Are you able to care for yourself independently? 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 No Information not available 05/30/2022 What is your exercise level? Occasional [email or web address] Information not available 11/04/2024 Mental Status Question Answer Note LastModified by Organization D etails LastModified Time Do you feel stressed (tense, restless, nervous, or anxious, or unable to sleep at night)? [id number] [email or web address] Information not available 11/04/2024 Family History Relationship Description Onset Age of this Age Resolved Age Notes LastModified by Organization Details LastModified Time Maternal Grandmother Malignant neoplasm of stomach [email or web address] Not available 2024 10:21:44 Father Atrial fibrillation [email or web address] Not available 10:21:44 Father Cerebrovascu lar accident [email or web address] Not available 16:23:20 Father Hypertensive disorder [email or web address] Not available 2024 16:23:20 Sister Malignant neoplasm of breast [email or web address] Not available 05/16 13:00:13 Mother Asthma [email or web address] Not available 11/04/2024 16:23:20 Maternal Grandfather Malignant neoplasm of colon [email or web address] Not available 2024 16:23:20 Paternal Grandmother Malignant neoplasm of breast [email or web address] Not available 2024 16:23:20 Medical History Condition Response Allergies (Food, seasonal, environmental ) N Other N Breast Cancer N Drug/Latex Allergies/Reactions N Blood Transfusion N Dermatologic Disorders N Lung Disease N Defects or Inherited Disease N Breast Problem N Gestational Diabetes N Hematologic disorders N Anesthesia Complications N History of STI N Deep Vein Thrombosis N Polycystic ovary syndrome N Anxiety Disorder N Autoimmune disease N Arthritis N Infertility N Polyps N Acid Reflux (GERD) N History of abnormal pap N Cancer N Stroke N Varicosities N Neurologic/Epilepsy N Endometriosis N High Cholesterol N Headaches N Fibromyalgia N Kidney Disease N Heart Problems N Kidney or Bladder Problems N Thyroid Problems N GI Problems N Eating Disorder N Anemia N Art (IVF or FET) N Psychiatric Illness N Ovarian Cancer N Diabetes N Pulmonary (TB, Asthma) N Hepatitis/Liver Disease N No Past Medical History N Eczema Y Urinary Tract Infection N Abuse/Domestic Violence N Asthma N Trauma/Violence N Depression/ depression N Heart Disease N Pre-Eclampsia N Hypertension N Osteoporosis N Thrombophilias N Gynecological History Statement/Question Response Abnormal Pap N Flow Heavy Date of LMP 03/05/2024 On BCP's at Conception? N N Was last menstrual period normal Y STIs/STDs N Duration of Flow (days) 5 Current Control Method None Age at First Child 23 Are cycles usually normal Y Frequency of Cycle (Q days) 26 Sexually Active? Y Menses Monthly Y Age of first menstrual cycle 9 Date of Last Pap Smear 09/12/2020 Sexual Problems? N Desired Control Method Unknown LMP Definite N Obstetrics History GPAL:G 3 P 3 0 0 3 Type Value Full Term 3 Living 3 Total 3 Past Encounters Encounter ID Performer Location Encounter Start Date Encounter Closed Date Diagnosis/Indication Diagnosis SNOMED-CT Code Diagnosis ICD10 Code Diagnosis IMO Codes Diagnosis Note [id number] Naeem Sebastian MD [facility] [address],[place] [address] 10/05/2024 16:59:47 10/05/2024 18:02:39 care status 387148468 Z34.83 [id number] Naeem Sebastian MD [facility] [address],[place] [address] 10/19/2024 10:00:38 10/19/2024 10:55:03 Multigravida of advanced maternal age 292052704 O09.523 O26.843 Z3A.33 [id number] Naeem Sebastian MD [facility] [address],[place] [address] 10/19/2024 10:07:31 10/20/2024 05:37:26 care status [id number] Z34.83 [id number] VALERIO EID MD [facility] [address],[place] [address] 11/02/2024 16:24:55 11/02/2024 16:55:46 Breech presentation [id number] O32.1XX0 Z3A.35 [id number] Health Concerns Section Related Observation LastModified by Organization Detai ls LastModified Time None Recorded Concern Status LastModified by Organization Details LastModified Time None Recorded Payers Encounter Date Sequence Insurance Name Policy Number Policy Haney Covered Member ID Haney Member ID Guarantor Name 11/02/2024 2 [facility] [id number] Graham Kinney [id number] Violetta Kinney 11/02/2024 1 [facility] [id number] Violetta Kinney [id number] Violetta Kinney OBGyn Episode Ob Episode Information Episode Created Date Number of Fetuses Patient Bloodtype Patient rh Status Prepregnancy Weight lbs Domestic Partner Domestic Partner Phone Father Name Back Joiner Status 06/03/19 25 1 A Positive 203 CLOSED Fetus Data First Name Last Name Admitted to NICU Weight (g) Sex Living Outcome Pediatric Complications Fetus ID Race Codes Race Delivery Type Tonja dominique false 3912.23 1 M true Full Term [id number] Vaginal Delivery Problems Problem Notes Problem Name Start Date End Date Resolution Snomed Code Not e Multigravida of advanced maternal age 0508/06/2024 [id number] Rogelio Calculation Initial Rogelio Date Initial Exam Date Initial Exam Provider Initial Ultrasound Date Last Menstrual Period Date Ultra Sound Weeks Gestation 12/05/2024 06/02/2024 04/30/2024 03/05/2024 8 Eighteen To Twenty Week Rogelio Update Ultra Sound Date Fundal Height At Umbil Quickening Date Ultra Sound Latest Weeks Gestation Final Rogelio Confirmed By Final Rogelio Confirmed Date Final Rogelio Date Ultra Sound Latest Days Gestation 07/21/19 25 20 06/02/2024 12/06/19 25 4 Pre- Flowsheet Flowsheet Date 06/02/2024 Sarmiento Score Blood Edema Fundus Height Fundus Units Glucose Ketones Leukocytes Nitrite Labor Signs Protein Cervic Dilation Cervic Effacement Cervic Station Type Weight in lbs Pre/Post Dialysis Refused BP Diastolic BP Location Tested BP Systolic BP Type Fetus Heart Rate Present Fetus Movement Comments Flowsheet Date 06/02/2024 Sarmiento Score Blood Edema Fundus Height Fundus Units Glucose Ketones Leukocytes Nitrite Labor Signs Protein Cervic Dilation Cervic Effacement Cervic Station Type Weight in lbs Pre/Post Dialysis Refused Weight 204.270603551954 BP Diastolic BP Location Tested BP Systolic BP Type 75 L arm 123 sitting Fetus Heart Rate Present A 158 Fetus Movement A No Comments Patient presents to [facility] care. Hx of 2 uncomplicated SVDs. otherwise uncomplicated. No nausea or cramping. NT/NB wnl today, LR male NIPT! New OB labs also wnl. RTC 4 weeks for routine care. Flowsheet Date 07/01/2024 Sarmiento Score Blood Edema Fundus Height Fundus Units Glucose Ketones Leukocytes Nitrite Labor Signs Protein Cervic Dilation Cervic Effacement Cervic Station Type Weight in lbs Pre/Post Dialysis Refused Weight 207.361402749306 BP Diastolic BP Location Tested BP Systolic BP Type 74 L arm 116 sitting Fetus Heart Rate Present A 150 Present Fetus Movement A Yes Comments no complaints, no problems, routine care, no contractions, no vaginal bleeding, no loss of fluid, no cramping Flowsheet Date 07/20/2024 Sarmiento Score Blood Edema Fundus Height Fundus Units Glucose Ketones Leukocytes Nitrite Labor Signs Protein Cervic Dilation Cervic Effacement Cervic Station Type Weight in lbs Pre/Post Dialysis Refused Weight 209.028251127726 BP Diastolic BP Location Tested BP Systolic BP Type 80 L arm 119 sitting Fetus Heart Rate Present A 153 Fetus Movement A Yes Comments no complaints, no problems, routine care, no contractions, no vaginal bleeding, no loss of fluid, no cramping Flowsheet Date 07/20/2024 Sarmiento Score Blood Edema Fundus Height Fundus Units Glucose Ketones Leukocytes Nitrite Labor Signs Protein Cervic Dilation Cervic Effacement Cervic Station Type Weight in lbs Pre/Post Dialysis Refused BP Diastolic BP Location Tested BP Systolic BP Type Fetus Heart Rate Present Fetus Movement Comments Flowsheet Date 08/21/2024 Sarmiento Score Blood Edema Fundus Height Fundus Units Glucose Ketones Leukocytes Nitrite Labor Signs Protein Cervic Dilation Cervic Effacement Cervic Station Type Weight in lbs Pre/Post Dialysis Refused Weight 210.268060246475 BP Diastolic BP Location Tested BP Systolic BP Type 70 102 sitting Fetus Heart Rate Present A 147 Present Fetus Movement A Yes Comments no complaints, no problems, routine care, no contractions, no vaginal bleeding, no loss of fluid, no cramping Flowsheet Date 09/21/2024 Sarmiento Score Blood Edema Fundus Height Fundus Units Glucose Ketones Leukocytes Nitrite Labor Signs Protein Cervic Dilation Cervic Effacement Cervic Station 28 cm Type Weight in lbs Pre/Post Dialysis Refused Weight 211.290029764521 BP Diastolic BP Location Tested BP Systolic BP Type 78 L arm 123 sitting Fetus Heart Rate Present A 138 Present Fetus Movement A Yes Comments no complaints, no problems, routine care, no contractions, no vaginal bleeding, no loss of fluid, no cramping Flowsheet Date 10/05/2024 Sarmiento Score Blood Edema Fundus Height Fundus Units Glucose Ketones Leukocytes Nitrite Labor Signs Protein Cervic Dilation Cervic Effacement Cervic Station Type Weight in lbs Pre/Post Dialysis Refused 213.012220396055 BP Diastolic BP Location Tested BP Systolic BP Type 62 L arm 98 sitting Fetus Heart Rate Present A 148 Present Fetus Movement A Yes Comments no complaints, no problems, routine care, no contractions, no vaginal bleeding, no loss of fluid, no cramping Flowsheet Date 10/19/2024 Sarmiento Score Blood Edema Fundus Height Fundus Units Glucose Ketones Leukocytes Nitrite Labor Signs Protein Cervic Dilation Cervic Effacement Cervic Station Type Weight in lbs Pre/Post Dialysis Refused BP Diastolic BP Location Tested BP Systolic BP Type Fetus Heart Rate Present Fetus Movement Comments Flowsheet Date 10/19/2024 Sarmiento Score Blood Edema Fundus Height Fundus Units Glucose Ketones Leukocytes Nitrite Labor Signs Protein Cervic Dilation Cervic Effacement Cervic Station Type Weight in lbs Pre/Post Dialysis Refused 168.033217591491 BP Diastolic BP Location Tested BP Systolic BP Type 76 L arm 124 sitting Fetus Heart Rate Present A 145 Fetus Movement A Yes Comments no complaints, no problems, routine care, no contractions, no vaginal bleeding, no loss of fluid, no cramping Flowsheet Date 11/02/2024 Sarmiento Score Blood Edema Fundus Height Fundus Units Glucose Ketones Leukocytes Nitrite Labor Signs Protein Cervic Dilation Cervic Effacement Cervic Station Type Weight in lbs Pre/Post Dialysis Refused BP Diastolic BP Location Tested BP Systolic BP Type Fetus Heart Rate Present Fetus Movement Comments Flowsheet Date 11/04/2024 Sarmiento Score Blood Edema Fundus Height Fundus Units Glucose Ketones Leukocytes Nitrite Labor Signs Protein Cervic Dilation Cervic Effacement Cervic Station 1cm 50% -3 Type Weight in lbs Pre/Post Dialysis Refused Weight 221.027746210829 BP Diastolic BP Location Tested BP Systolic BP Type 84 L arm 132 sitting Fetus Heart Rate Present A 145 Fetus Movement A Yes Comments Doing well, good movem ent. No cramping or bleeding. Received tdap and RSV vaccine. Preadmission tomorrow. GBS collected. SVE 1cm. RTC 1 week. Flowsheet Date 11/12/2024 Sarmiento Score Blood Edema Fundus Height Fundus Units Glucose Ketones Leukocytes Nitrite Labor Signs Protein Cervic Dilation Cervic Effacement Cervic Station Type Weight in lbs Pre/Post Dialysis Refused 220.755638245549 BP Diastolic BP Location Tested BP Systolic BP Type 80 L arm 117 sitting Fetus Heart Rate Present A 144 Present Fetus Movement A Yes Comments no complaints, no problems, routine care, no contractions, no vaginal bleeding, no loss of fluid, no cramping Flowsheet Date 11/20/2024 Sarmiento Score Blood Edema Fundus Height Fundus Units Glucose Ketones Leukocytes Nitrite Labor Signs Protein Cervic Dilation Cervic Effacement Cervic Station Type Weight in lbs Pre/Post Dialysis Refused Weight 222.8819677092 BP Diastolic BP Location Tested BP Systolic BP Type 85 R arm 134 sitting Fetus Heart Rate Present A 130 Fetus Movement A Yes Comments Having some cramping over e , has now resolved. Good movement. Considering EIL, will discuss and call if desired. SVE 1.5cm. RTC 1 week. Flowsheet Date 11/27/2024 Sarmiento Score Blood Edema Fundus Height Fundus Units Glucose Ketones Leukocytes Nitrite Labor Signs Protein Cervic Dilation Cervic Effacement Cervic Station 3cm 60% -2 Type Weight in lbs Pre/Post Dialysis Refused Weight 218.255385452861 BP Diastolic BP Location Tested BP Systolic BP Type 83 L arm 138 sitting Fetus Heart Rate Present Fetus Movement A Yes Comments Doing well, good movem ent. Irregular contractions. No LOF or VB. Labor precautions reviewed. RTC 1 week. Flowsheet Date 12/29/2024 Sarmiento Score Blood Edema Fundus Height Fundus Units Glucose Ketones Leukocytes Nitrite Labor Signs Protein Cervic Dilation Cervic Effacement Cervic Station Type Weight in lbs Pre/Post Dialysis Refused Weight 195.056278922133 BP Diastolic BP Location Tested BP Systolic BP Type 76 L arm 111 sitting Fetus Heart Rate Present Fetus Movement Comments Menstrual History Last Menstrual Date Menses Monthly On Bcp Conception Prior Menses Frequency Hcg Plus Date Menarche Onset Age 1203/05/2024 true Delivery Information Delivery Date Delivery Type Labor Anesthesia Weeks Gestation Incision Type Labor Labor Length Hrs Delivered By Post Complications Tubal Sterilization Discharge Date Comments 5 Sponta neous 39.4 false Discharge Information Feeding Method Contraceptive Method Maternal HG B and HCT Levels Combination
--- OUTSIDE RECORDS SUMMARY | 2025-01-29 21:29 | XMS_ITS | Continuity of Care Document ---
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 Plan of Treatment Reminders Order Date Submit Date Provider Last Modified By Organization Details Last Modified Time Details Appointments None recorded. Lab streptococc us group B, culture, unspecified specimen 2024 025 [facility] (Lab), [address], [place], [address], 15:56:27 Referral None recorded. Procedures None recorded. Surgeries None recorded. Imaging None recorded. Medication Orders None recorded. Patient TargetsNo targets recorded. Patient InstructionsNo instructions recorded. Reason for Referral None Reported. Results Created Date Observation Date Name Description Value Unit Range Abnormal Flag Note LastModifiedBy Organization Detail LastModifiedTime 06/04/1906/03/2024 drug scree n, urine Amphetamines : negati ve Not Available [facility] [address], [place], [address], 06/03/2024 17:47:42 06/04/19 25 06/03/2024 drug scree n, urine Cannabinoids : negati ve Not Available [facility] [address], [place], [address], 06/03/2024 17:47:42 06/04/19 25 06/03/2024 drug scree n, urine Cocaine: negati ve Not Available [facility] [address], [place], [address], 06/03/2024 17:47:42 06/04/19 25 06/03/2024 drug scree n, urine Opiates: negati ve Not Available [facility] [address], [place], [address], 06/03/2024 17:47:42 06/04/19 25 06/03/2024 drug scree n, urine Phenocyclidi ne: negati ve Not Available [facility] [address], [place], [address], 06/03/2024 17:47:42 06/04/19 25 06/03/2024 drug scree n, urine Barbiturates : negati ve Not Available [facility] [address], [place], [address], 06/03/2024 17:47:42 06/04/19 25 06/03/2024 drug scree n, urine Benzodiazepi romina: negati ve Not Available [facility] [address], [place], [address], 06/03/2024 17:47:42 06/04/19 25 06/03/2024 drug scree n, urine Ethanol: negati ve Not Available [facility] [address], [place], [address], 06/03/2024 17:47:42 06/04/19 25 06/03/2024 drug scree n, urine Hallucinogen s: negati ve Not Available [facility] [address], [place], [address], 06/03/2024 17:47:42 06/04/19 25 06/03/2024 drug scree n, urine Inhalants: negati ve Not Available [facility] [address], [place], [address], 06/03/2024 17:47:42 06/04/19 25 06/03/2024 drug scree n, urine Anabolic Steroids: negati ve Not Available [facility] [address], [place], [address], 06/03/2024 17:47:42 09/22/19 25 09/21/2024 HEMAT OCRIT (HCT) HCT 32.3 % (based on docume nted legal sex) 34.0-4 5.0 low Not Available [facility] (Lab) [address], [place], [address], 09/22/2024 12:01:19 09/22/19 25 09/21/2024 HEMOG LOBIN (HGB) HGB 10.4 g/dL (based on docume nted legal sex) 11.6-1 5.4 low Not Available [facility] (Lab) [address], [place], [address], 09/22/2024 12:01:20 09/22/19 25 09/21/2024 GTT - GESTA JULIUS L GARFIELD Beltrán, ACOG OB glucose, 1 hour screen 146 mg/dL 70-[address] [facility] (Lab) [address], [place], [address], 09/22/2024 12:01:20 09/22/19 25 09/21/2024 HIV 1/2 ANTIG EN/AN TIBOD Y, REFLE X CONFI RMATI ON HIV antigen/anti body Nonrea ctive nonrea ctive HIV-1 antig en and HIV-1 /HIV- 2 antib odies were not detec greta. No labor atory evide nce of HIV infec tion. Not Available [facility] (Lab) [address], [place], [address], 09/22/2024 12:01:21 09/22/19 25 09/21/2024 RPR SCREE N, REFLE X TITER /CONF IRMAT ION RPR qualitative Nonrea ctive nonrea ctive Not Available [facility] (Lab) [address] [place], [address], 09/22/2024 12:01:21 09/29/19 25 09/28/2024 GTT - GESTA JULIUS L, 3 HOUR, ACOG glucose, fasting acog 84 mg/dL 70-94 Not Available [facility] (Lab) [address] [place], [address], 09/29/2024 03:44:44 09/29/19 25 09/28/2024 GTT - GESTA JULIUS L, 3 HOUR, ACOG glucose, 1 hour acog 181 mg/dL 70-[address] [facility] (Lab) [address], [place], [address], 09/29/2024 03:44:44 09/29/19 25 09/28/2024 GTT - GESTA JULIUS L, 3 HOUR, ACOG glucose, 2 hour acog 150 mg/dL 70-[address] [facility] (Lab) [address] [place], [address], 09/29/2024 03:44:44 09/29/19 25 09/28/2024 GTT - GESTA JULIUS L, 3 HOUR, ACOG glucose, 3 hour acog 127 mg/dL 70-[address] [facility] (Lab) [address] [place], [address], 09/29/2024 03:44:44 11/05/19 25 11/04/2024 CULTU RE: GROUP B STREP SCREE N, REFLE X SUSCE PTIBI LITY result report SEE RESULT S BELOW abnormal Test: Cultu re: Group B Strep , Refle x Susce ptibi lity ([facility]/ [facility] ) Speci men Sourc e: Vagin a/Rec angelique Speci men Type: Vagin al/Re ctal Speci men Date: 2024 1702 Resul t Date: 2024 1453 Resul t Statu s: Final resul t Abnor mal: Yes Resul jonathan Lab: [facility] [address] [facility] [address] Tel: CULTU RE ----- ----- ----- --- Posit lori for Strep tococ cus agala ctiae (Grou p B) (Abno rmal) Clind amyci n = resis tant, eryth romyc in = resis tant. Cefaz nguyen may be used for intra partu m proph ylaxi s in penic illin -nery rgic women at low risk, and Vanco mycin is recom priscilla d for women at high risk for anaph ylaxi s. Susce ptibi lity testi ng is not neces beatris for these drugs . Not Available [facility] (Lab) [address], [place], [address], 11/08/2024 15:56:27 06/03/19 25 06/02/2024 US, obste tric, nucha l trans lucen cy No observ ation record ed. Vivi [address] [place] [address], [place], [address], 06/02/2024 22:49:25 06/03/19 25 06/02/2024 US, obste tric, nucha l trans lucen cy No observ ation record ed. [email or web address] [facility] [address], [place], [address], 06/02/2024 18:53:48 07/21/19 25 07/20/2024 US, obste tric, 2nd or 3rd trime ster No observ ation record ed. [email or web address] [facility] [address], [place], [address], 07/20/2024 18:43:23 07/21/19 25 07/20/2024 US, obste tric, follo w-up No observ ation record ed. [email or web address] Vivi [address], [place], [address], 08/06/2024 14:42:59 10/20/19 25 10/19/2024 US, obste tric, follo w-up No observ ation record ed. [email or web address] [facility] [address], [place], [address], 10/19/2024 18:42:11 10/20/19 25 10/19/2024 US, obste tric, follo w-up No observ ation record ed. [email or web address] Vivi [address], [place], [address], 10/21/2024 16:49:04 11/03/19 25 11/02/2024 US, obste tric, limit ed No observ ation record ed. [email or web address] [facility] [address], [place], [address], 11/02/2024 18:27:07 11/03/19 25 11/02/2024 US, obste tric, limit ed No observ ation record ed. LESTER Vivi [address], [place], [address], 11/02/2024 17:21:55 Result Notes None recorded. Problems Name Problem SNOMED Code Status Onset Date Resolution Date Notes Provider Name and Address Organization Details Recorded Time Complete Completed 201209/12/2020 Legally unspecif ied , complete , without mention of complica tion;Rec orded Elsewher e: No Locat ion: [facility] S ource: EHR Medical Records Tech june: N Practi ce ID: 0001 Miko lable Time: 06:30:00 PM Gracy Mireles [place], [place] - [facility] 16:59:22 Primigra james [id number] Completed 201209/12/2020 Supervis ion of normal first pregnanc y;Record ed Elsewher e: No Locat ion: [facility] S ource: EHR Medical Records Tech june: N Donnellti ce ID: 0001 Miko lable Time: 05:15:00 PM Gracy Mireles [facility] 1 17:00:04 Pregnanc y test positive [id number] Completed 201209/12/2020 Pregnanc y examinat ion or test, positive result;R ecorded Elsewher e: No Locat ion: [facility] S ource: EHR Medical Records Tech june: N Donnellti ce ID: 0001 Miko lable Time: 05:15:00 PM Gr[address] Mireles [facility] 1 17:00:00 Ultrason ography Completed 201209/12/2020 Antenata l screenin g for malforma tion using ultrason ics;Rich rded Elsewher e: No Locat ion: [facility] S ource: EHR Medical Records Tech june: N Donnellti ce ID: 0001 Miko lable Time: 04:30:00 PM Gracy Mireles [facility] 1 17:00:21 Antenata l screenin g Completed 201209/12/2020 Antenata l screenin g for malforma tion using ultrason ics;Rich rded Elsewher e: No Locat ion: [facility] S ource: EHR Medical Records Tech june: N Donnellti ce ID: 0001 Miko lable Time: 04:30:00 PM Gracy Mireles [facility] 1 16:59:17 Congenit al malforma tion [id number] Completed 201209/12/2020 Antenata l screenin g for malforma tion using ultrason ics;Rich rded Elsewher e: No Locat ion: [facility] S ource: EHR Medical Records Tech june: N Donnellti ce ID: 0001 Miko lable Time: 04:30:00 PM [address] Mireles [facility] 16:59:24 Trauma to perineum and/or vulva during delivery [id number] Completed 201309/12/2020 Unspecif ied trauma to perineum and vulva, unspecif ied as to episode of care in pregnanc y;Record ed Elsewher e: No Locat ion: [facility] S ource: EHR Medical Records Tech june: N Practi ce ID: 0001 Miko lable Time: 11:30:00 AM Gracy Mireles [facility] 17:00:18 Routine antenata l care Completed 201309/12/2020 Supervis ion of other normal pregnanc y;Practi ce ID: 0001 Gracy Mireles [facility], [facility] 17:00:05 Excessiv e growth affectin g manageme nt of mother [id number] Completed 201309/12/2020 Excessiv e growth, affectin g manageme nt of mother, antepart um;Recor ded Elsewher e: No [facility]at ion[facility] S ource: EHR Medical Records Tech june: N Practi ce ID: 0001 Miko lable Time: 04:00:00 PM Garcy dagn [facility] 16:59:39 Delivery normal [id number] Completed 201309/12/2020 Normal delivery ;Practic e ID: 0001 Gracy Mireles [facility] 16:59:37 Single live from singleto n pregnanc y [id number] Completed 201309/12/2020 Mother with single liveborn ;Practic e ID: 0001 Gracy Mireles [facility] 17:00:10 Pregnanc y test negative [id number] Completed 201309/12/2020 Pregnanc y examinat ion or test, negative result;R ecorded Elsewher e: No Locat ion: [facility] S ource: EHR Medical Records Tech june: N Practi ce ID: 0001 Miko lable Time: 10:30:00 AM Gracy Mireles [facility] 16:59:59 Postpart um care Completed 201309/12/2020 Post Followup ;Recorde d Elsewher e: No Locat ion: [facility] S ource: EHR [facility] june: N Practi ce ID: 0001 Miko lable Time: 10:30:00 AM Gracy Mireles [facility] 16:59:55 Menstrua tion finding Completed 201309/12/2020 Menometr orrhagia ;Recorde d Elsewher e: No Locat ion: [facility] S ource: [facility] june: N Donnellti ce ID: 0001 Miko lable Time: 09:00:00 AM Gracy Mireles [facility] 16:59:49 Postoper ative follow-u p visit Completed 201309/12/2020 Follow-u p examinat ion, followin g unspecif ied surgery; Recorded Elsewher e: No Locat ion: [facility] S ource: [facility] june: N Donnellti ce ID: 0001 Miko lable Time: 04:30:00 [address] [facility] 16:59:54 Amenorrh ea [id number] Completed 201309/12/2020 Amenorrh ea;Recor ded Elsewher e: No Locat ion: [facility] S ource: EHR [facility] june: N Practi ce ID: 0001 Miko lable Time: 04:00:00 PM [address] M[address] [facility] 16:59:15 Vaginiti s and vulvovag initis Completed 201309/12/2020 Vaginiti s and vulvovag initis, unspecif ied;Rich rded Elsewher e: No Locat ion: [facility] Luis abbott [facility] S ource: EHR Medical Records Tech june: N Practi ce ID: 0001 Miko lable Time: 04:00:[address] [facility] 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 17:00:15 Overweig ht [id number] Completed 201309/12/2020 Overweig ht;Recor ded Elsewher e: No Locat ion: [facility] S ource: EHR Medical Records Tech june: N Practi ce ID: 0001 Miko lable Time: 04:00:00 PM [address] Mire[address] [facility] 16:59:52 Speciali zed medical examinat ion Completed 201409/12/2020 Other specifie d chlamydi al diseases ;Recorde d Elsewher e: No Locat ion: [facility] S ource: E[employer] Medical Records Tech june: N Practi ce ID: 0001 Miko lable Time: 05:15:00 PM [address] Mire[address] [facility] 17:00:16 Venereal disease screenin g Completed 201409/12/2020 Screenin g examinat ion for venereal disease; Recorded Elsewher e: No Locat ion: [facility] S ource: EHR Medical Records Tech june: N Practi ce ID: 0001 Miko lable Time: 05:15:00 [address] [facility] 17:00:25 Leukorrh ea [id number] Completed 201409/12/2020 Leukorrh ea, not specifie d as infectiv e;Record ed Elsewher e: No Locat ion: [facility] S ource: EHR Medical Records Tech june: N Practi ce ID: 0001 Miko lable Time: 05:15:00 [address] [facility] 16:59:45 Acute vaginiti s [id number] Completed 201509/12/2020 Acute vaginiti s;Record ed Elsewher e: No Locat ion: [facility]ena [facility] S ource: EHR Medical Records Tech june: N Practi ce ID: 0001 Miko lable Time: 02:30:00 PM Gracy [facility] 16:59:14 Hemorrho ids [id number] Completed 201509/12/2020 Hemorrho id;Recor ded Elsewher e: No Locat ion: [facility] S ource: EHR Medical Records Tech june: N Practi ce ID: 0001 Miko lable Time: 02:30:00 PM Gracy Mireles [facility] 16:59:[address] Concept Completed 201509/12/2020 Encntr for general adult medical exam w/o abnormal findings ;Recorde d Elsewher e: No Locat ion: [facility] S ource: EHR Medical Records Tech june: N Practi ce ID: 0001 Miko lable Time: 10:30:00 AM Gracy Mireles [facility] 17:00:12 Pregnanc y detectio n examinat ion Completed 201609/12/2020 Encounte r for pregnanc y test, result positive ;Recorde d Elsewher e: No Locat ion: [facility] S ource: EHR Medical Records Tech ujne: N Practi ce ID: 0001 Miko lable Time: 09:45:00 AM Gracy [facility] 16:59:57 Secondar y amenorrh ea [id number] Completed 201609/12/2020 Secondar y amenorrh ea;Pract ice ID: 0001 Gracy dang [facility] 17:00:08 Normal pregnanc y in kaitlina james [id number] 4106 Completed 201609/12/2020 Encounte r for supervis ion of other normal pregnanc y, 2nd trimeste r;Record ed Elsewher e: No Locat ion: [facility] S ource: EHR Medical Records Tech june: N Practi ce ID: 0001 Miko lable Time: 08:30:00 AM Gracy dang [facility] 16:59:50 Prematur e rupture of membrane s [id number] Completed 201609/12/2020 Full-ter m epi ROM, unsp time betw rupture and onset labor;Pr actice ID: 0001 Gracy dang [facility] 17:00:02 Lacerati on of female perineum Completed 201609/12/2020 First degree perineal lacerati on during delivery ;Practic e ID: 0001 Gracy dang [facility] 16:59:44 Gestatio n period, 39 weeks [id number] Completed 201609/12/2020 39 weeks gestatio n of pregnanc y;Practi ce ID: 0001 Gracy dang [facility] 16:59:40 Lochia finding Completed 201609/12/2020 Encounte r for routine postpart um follow-u p;Record ed Elsewher e: No Locat ion: [facility] S ource: EHR Medical Records Tech june: N Practi ce ID: 0001 Miko lable Time: 09:45:00 AM Gracy dang [facility] 16:59:47 Uses combined oral contrace ption [id number] Completed 201709/12/2020 Encounte r for initial prescrip tion of contrace ptive pills;Re corded Elsewher e: No Locat ion: [facility] abb[facility] S ource: EHR Medical Records Tech june: N Ken ce ID: 0001 Miko lable Time: 10:15:00 AM Gracy Mireles [facility] 16:59:20 Body mass index 25-29 - overweig ht [id number] Completed 201709/12/2020 Body mass index (BMI) 28.0-28. 9, adult;Re corded Elsewher e: No Locat ion: [facility] ab[facility] S ource: EHR Medical Records Tech june: N Ken ce ID: 0001 Miko lable Time: 10:15:00 AM Gracy Mireles [facility] 16:59:19 Screenin g for malignan t neoplasm of cervix Completed 201709/12/2020 Screenin g for malignan t neoplasm s of the cervix;R ecorded Elsewher e: No Locat ion: [facility] ab[facility] S ource: EHR Medical Records Tech june: N Ken ce ID: 0001 Miko lable Time: 10:15:00 AM Gracy Mireles [facility] 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 17:00:13 Pregnanc y [id number] Completed 202412/29/[address] [facility] 5 10:32:08 Multigra james of advanced maternal age [id number] Completed 2024 Kim dang [facility] 14:42:40 Problem Notes None recorded. Procedures Surgical History Date Name Laterality Status Provider Name and Address Organization Details Recorded Time 09/13/19 21 Date of Last Pap Smear completed Norma Freeman [facility] 12/03/2023 17:17:36 03/18/19 14 Hysteroscopy completed Gracy Mireles [facility] 09/12/2020 17:03:41 Imaging Results None [...] to the affected area(s) 12/16 completed Prescrib terri abbott: Yes Loca tion: [facility] ab[facility] Jamie odify By: ary marin DateTime : 10/29/19 [...] e: Yes Loca tion: [facility] Luis abbott [facility] odify By: [email or web address] Abbott ncounter DateTime : 09/01/19 14 10:30:00 AM Not Available Not Available Not Available prednison e 50 mg tablet TAKE 1 TABLET BY MOUTH DAILY 05/06 completed Not Available Not Available Not Available Vitamin D2 1,250 mcg (50,000 unit) capsule take 1 capsule ([id number]) by oral route every week 08/31 completed Prescrib ed Elsewher e: No Locat ion: [facility] odify By: [email or web address] En counter DateTime : 01/29/20 13 11:56:09 AM Not Available Not Available Not Available norethind lisa (contrace ptive) 0.35 mg tablet take 1 tablet by oral route every day 12/16 completed Prescrib ed Elsewher e: No Locat ion: [facility] odify By: [email or web address] Abbott ncounter DateTime : 09/01/19 14 10:30:00 AM Not Available Not Available Not Available sertralin e 20 mg/mL oral concentra te 04/18 completed Prescrib ed Elsewher e: Yes Loca tion: [facility] odify By: [email or web address] Encount er DateTime : 07/06/19 16 02:30:00 [...] e: No Locat ion: [facility] odify By: justina Milena leounter DateTime : 10/23/19 14 09:00:00 AM Not Available Not Available Not Available erythromy michel with ethanol 2 % topical gel apply by topical route 2 times every day a thin layer to the affected area(s) in the morning and evening 01/27 completed Prescrib ed Elsewher e: No Locat ion: [facility] odify By: parag Abbott ncounter DateTime : 01/29/20 13 11:56:09 AM Not Available Not Available Not Available Duac 1.2 % (1 % base)-5 % topical gel apply by topical route 2 times every day to the affected area(s) in the morning and evening 12/16 completed Prescrib ed Elsewher e: Yes Loca tion: [facility] abbott [facility] odify By: ary marin DateTime : [...] e: No Locat ion: [facility] odify By: alonso Abbott ncounter DateTime : 12/17/19 13 05:15:00 PM Not Available Not Available Not Available 28 mg iron-800 mcg tablet 07/19 completed Prescrib ed Elsewher e: Yes Loca tion: [facility] abbott [facility] odify By: [email or web address] Encount azeem DateTime : 04/18/19 19 11:15:00 AM Not Available Not Available Not Available One Daily 27 mg iron-800 mcg tablet take 1 tablet by oral route every day 06/30 completed Prescrib ed Elsewher e: Yes Loca tion: Pedro Luis abbott [facility] odify By: parag [email or web address] DateTime : 01/28/20 14 04:00:00 PM Not Available Not Available Not Available Anusol-HC 2.5 % topical cream with perineal applicato r apply by topical route 2 times every day to the affected area(s) 08/01 completed Prescrib terri Peoples e: No Locat ion: [facility] odify By: ivy schaefer DateTime : 07/06/19 16 02:30:00 PM Not Available Not Available Not Available Vitals Date Recorded Body height Body mass index (BMI) Body weight Systolic And Diastolic Provider Name and Address Organization Details Last Updated DateTime 11/04/2024 163.2 cm 37.8 kg/m2 446475.79 g 132/84 mm[Hg] Maddie Falconton [facility] 11/04/2024 16:27:37 Social History Question Answer Notes LastModified by Organizat ion Details LastModified Time Do You Have An Advance Directive? No Information n ot available 11/04/2024 How Many Years Have You Consumed Alcohol? 4 [email or web address] Information not available 11/04/2024 Are You Blind Or Do You Have Difficulty Seeing? No [email or web address] Information not available 11/04/2024 What Is Your Level Of Caffeine Consumption? Moderate [email or web address] Information not available 11/04/2024 How Much Tobacco Do You Chew? None [email or web address] Information not available 11/04/2024 In The 14 Days Before Symptom Onset, Have You Had Close Contact With A Laboratory-confirme d COVID-19 While That Case Was Ill? No [email or web address] Information n ot available 11/04/2024 In The 14 Days Before Symptom Onset, Have You Had Close Contact With A Person Who Is Under Investigation For COVID-19 While That Person Was Ill? No Information not available 11/04/2024 Have You Been To An Area Known To Be High Risk For COVID-19? No [email or web address] Information not available 11/04/2024 Are You Deaf Or Do You Have Serious Difficulty Hearing? No [email or web address] Information not available 11/04/2024 What Type Of Diet Are You Following? REGULAR [email or web address] Information n ot available 11/04/2024 What Is The Highest Grade Or Level Of School You Have Completed Or The Highest Degree You Have Received? [id number] [email or web address] Information not available 11/04/2024 Are There Any Guns Present In Your Home? No [email or web address] Information not available 11/04/2024 Do You Use Protection During Sex? No [email or web address] Information not available 11/04/2024 Do You Use Your Seat Belt Or Car Seat Routinely? Yes [email or web address] Information not available 11/04/2024 Do You Have Smoke And Carbon Monoxide Detectors In Your Home? Yes [email or web address] Information not available 11/04/2024 How Much Tobacco Do You Smoke? No [email or web address] Information not available 11/04/2024 Do You Use Sunscreen Routinely? Yes [email or web address] Information not available 11/04/2024 Have You Used IV Drugs? No [email or web address] Information not available 11/04/2024 Do You Have Difficulty Walking Or Climbing Stairs? No Information not available 05/30/2022 Sex: Unknown Functional Status Question Answer Note LastModified by Organizat ion Details LastModified Time Do you use any illicit or recreational drugs? No [email or web address] Information not available 11/04/2024 What is your level of alcohol consumption? Occasional Information not available 11/04/2024 Are you able to walk independently without assistance or assistive devices? [email or web address] Information not available 11/04/2024 Are you able to care for yourself independently? 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 No Information not available 05/30/2022 What is your exercise level? Occasional [email or web address] Information not available 11/04/2024 Mental Status Question Answer Note LastModified by Organization D etails LastModified Time Do you feel stressed (tense, restless, nervous, or anxious, or unable to sleep at night)? [id number] [email or web address] Information not available 11/04/2024 Family History Relationship Description Onset Age of this Age Resolved Age Notes LastModified by Organization Details LastModified Time Maternal Grandmother Malignant neoplasm of stomach [email or web address] Not available 2024 10:21:44 Father Atrial fibrillation [email or web address] Not available 10:21:44 Father Cerebrovascu lar accident [email or web address] Not available 16:23:20 Father Hypertensive disorder Not available 2024 16:23:20 Sister Malignant neoplasm of breast [email or web address] Not available 05/16 13:00:13 Mother Asthma [email or web address] Not available 11/04/2024 16:23:20 Maternal Grandfather Malignant neoplasm of colon [email or web address] Not available 2024 16:23:20 Paternal Grandmother Malignant neoplasm of breast [email or web address] Not available 2024 16:23:20 Medical History Condition Response Allergies (Food, seasonal, environmental ) N Other N Drug/Latex Allergies/Reactions N Blood Transfusion N Breast Cancer N Dermatologic Disorders N Lung Disease N Defects or Inherited Disease N Breast Problem N Gestational Diabetes N Hematologic disorders N Anesthesia Complications N History of STI N Deep Vein Thrombosis N Polycystic ovary syndrome N Anxiety Disorder N Autoimmune disease N Arthritis N Polyps N Infertility N Acid Reflux (GERD) N History of abnormal pap N Cancer N Varicosities N Stroke N Neurologic/Epilepsy N Endometriosis N High Cholesterol N Fibromyalgia N Headaches N Kidney Disease N Heart Problems N Thyroid Problems N Kidney or Bladder Problems N GI Problems N Eating Disorder [...] ICD10 Code Diagnosis IMO Codes Diagnosis Note [id number] Naeem Sebastian MD [place] [address],[place] [address] 10/05/2024 16:59:47 10/05/2024 18:02:39 care status 490365431 Z34.83 [id number] Naeem Sebastian MD [place] [address],[place] [address] 10/19/2024 10:00:38 10/19/2024 10:55:03 Multigravida of advanced maternal age [id number] O09.523 O26.843 Z3A.33 [id number] Naeem Sebastian MD [place] [address],[place] [address] 10/19/2024 10:07:31 10/20/2024 05:37:26 care status 721702417 Z34.83 [id number] VALERIO EID MD [place] [address],[place] [address] 11/02/2024 16:24:55 11/02/2024 16:55:46 Breech presentation 1018024 O32.1XX0 Z3A.35 [id number] VALERIO EID MD [place] [address],[place] [address] 11/04/2024 16:14:38 11/04/2024 16:52:44 Multigravida of advanced maternal age 500053861 O09.522 [id number] Gestation period, 35 weeks 44988888 Z3A.35 [id number] screening 2437 81109 Z36.85 Health Concerns Section Related Observation LastModified by Organization Detai ls LastModified Time None Recorded Concern Status LastModified by Organization Details LastModified Time None Recorded Payers Encounter Date Sequence Insurance Name Policy Number Policy Haney Covered Member ID Haney Member ID Guarantor Name 11/04/2024 2 [facility] [id number] Graham Kinney [id number] Violetta Kinney 11/04/2024 1 [facility] [id number] Violetta Abbott Nirmal [id number] Violetta Kinney Notes Date Note Type Note Provider Name and Address Organization Details Recorded Time 11/04/2024 text/html Generic HPI TemplateReported by Patient Maddie Brandon [facility] 11/04/2024 16:56:16 OBGyn Episode Ob Episode Information Episode Created Date Number of Fetuses Patient Bloodtype Patient rh Status Prepregnancy Weight lbs Domestic Partner Domestic Partner Phone Father Name Application Systems Architect Status 06/03/19 25 1 A Positive 203 CLOSED Fetus Data First Name Last Name Admitted to NICU Weight (g) Sex Living Outcome Pediatric Complications Fetus ID Race Codes Race Delivery Type Tonja dominique false 3912.23 1 M true Full Term [id number] Vaginal Delivery Problems Problem Notes Problem Name Start Date End Date Resolution Snomed Code Not e Multigravida of advanced maternal age 0508/06/2024 [id number] Rogelio Calculation Initial Rogelio Date Initial Exam [...] Weight in lbs Pre/Post Dialysis Refused Weight 204.833133526399 BP Diastolic BP Location Tested BP Systolic BP Type 75 L arm 123 sitting Fetus Heart Rate Present A 158 Fetus Movement A No Comments Patient presents to [facility] care. Hx of 2 uncomplicated SVDs. otherwise uncomplicated. No nausea or cramping. NT/NB wnl today, LR male NIPT! New OB labs also wnl. RTC 4 weeks for routine care. Flowsheet Date 07/01/2024 Sarmiento Score Blood Edema Fundus Height Fundus Units Glucose Ketones Leukocytes Nitrite Labor Signs Protein Cervic Dilation Cervic Effacement Cervic Station Type Weight in lbs Pre/Post Dialysis Refused Weight 207.936525117137 BP Diastolic BP Location Tested BP Systolic [...] Weight in lbs Pre/Post Dialysis Refused Weight 209.633635084485 BP Diastolic BP Location Tested BP Systolic [...] Weight in lbs Pre/Post Dialysis Refused Weight 210.291524603067 BP Diastolic BP Location Tested BP Systolic [...] Weight in lbs Pre/Post Dialysis Refused Weight 211.911952960406 BP Diastolic BP Location Tested BP Systolic [...] Type Weight in lbs Pre/Post Dialysis Refused 213.034483892487 BP Diastolic BP Location Tested BP Systolic [...] Type Weight in lbs Pre/Post Dialysis Refused 168.070921044092 BP Diastolic BP Location Tested BP Systolic [...] Weight in lbs Pre/Post Dialysis Refused Weight 221.164571767561 BP Diastolic BP Location Tested BP Systolic [...] Type Weight in lbs Pre/Post Dialysis Refused 220.785500738903 BP Diastolic BP Location Tested BP Systolic [...] Weight in lbs Pre/Post Dialysis Refused Weight 222.2198526304 BP Diastolic BP Location Tested BP Systolic BP Type 85 R arm 134 sitting Fetus Heart Rate Present A 130 Fetus Movement A Yes Comments Having some cramping over , has now resolved. Good movement. Considering EIL, will discuss and call if desired. SVE 1.5cm. RTC 1 week. Flowsheet Date 11/27/2024 Sarmiento Score Blood Edema Fundus Height Fundus Units Glucose Ketones Leukocytes Nitrite Labor Signs Protein Cervic Dilation Cervic Effacement Cervic Station 3cm 60% -2 Type Weight in lbs Pre/Post Dialysis Refused Weight 218.449816518312 BP Diastolic BP Location Tested BP Systolic [...] Weight in lbs Pre/Post Dialysis Refused Weight 195.359366654596 BP Diastolic BP Location Tested BP Systolic [...]
--- OUTSIDE RECORDS SUMMARY | 2025-01-29 21:29 | XMS_ITS | Data Portability ---
Author Organization [facility] Address [address] [place] [address] Care Team Providers Care Machine Bender Name Role Phone LEO ZAMARRIPA Primary Care Provider Assessment Encounter Date Assessment Date Assessment LastModified by Organization Details LastModified Time 11/12/2024 11/12/2024 Patient is ___weeks . Discussed plan. [email or web address] Not available 11/12/2024 17:44:12 11/20/2024 11/20/2024 Patient is ___weeks . Discussed plan. [email or web address] Not available 11/20/2024 15:14:07 Plan of Treatment Reminders Order Date Submit Date Provider Last Modified By Organization Details Last Modified Time Details Appointments None recorded. Lab streptococc us group B, culture, unspecified specimen 2024 025 [facility] (Lab), [address], [place], [address], 15:56:27 Referral None recorded. Procedures None recorded. Surgeries None recorded. Imaging None recorded. Medication Orders None recorded. Patient TargetsNo targets recorded. Patient InstructionsNo instructions recorded. Reason for Referral None Reported. Results Created Date Observation Date Name Description Value Unit Range Abnormal Flag Note LastModifiedBy Organization Detail LastModifiedTime 11/05/19 25 11/04/2024 CULTU RE: GROUP B [...] t Abnor mal: Yes Resul jonathan Lab: [facility] [address] [facility] [address] Tel: CULTU RE ----- ----- ----- --- [...] at high risk for anaph ylaxi s. Elbert ptibi master testteagan ng is not neces beatris for these drugs . Not Available [facility] (Lab) [address], [place], [address], 11/08/2024 15:56:27 10/20/19 25 10/19/2024 US, obste tric, follo w-up No observ ation record ed. [email or web address] [place] [address], [place], [address], 10/19/2024 18:42:11 10/20/19 25 10/19/2024 , obste tric, follo w-up No observ ation record ed. [email or web address] Vivi [address], [place], [address], 10/21/2024 16:49:04 11/03/19 25 11/02/2024 US, obste tric, limit ed No observ ation record ed. [email or web address] [place] [address], [place], [address], 11/02/2024 18:27:07 08/18/20 25 11/02/2024 US, obste tric, limit ed No observ ation record ed. LESTER Trinidad [address], [place], [address], 11/02/2024 17:21:55 Result Notes None recorded. Problems Name Problem SNOMED Code Status Onset Date Resolution Date Notes Provider Name and Address Organization Details Recorded Time Complete Completed 201209/12/2020 Legally unspecif ied , complete , without mention of complica tion;Rec orded Elsewher e: No Locat ion: [facility] S ource: EHR Director [employer] june: N Ken ce ID: 0001 Miko lable Time: 06:30:00 PM Gracy [facility] 16:59:22 Primigra james [id number] Completed 201209/12/2020 Supervis ion of normal first pregnanc y;Record ed Elsewher e: No Locat ion: [facility] S ource: EHR Director [employer] june: N Ken ce ID: 0001 Miko lable Time: 05:15:00 PM Gracy Mireles [facility] 1 17:00:04 Pregnanc y test positive [id number] Completed 201209/12/2020 Pregnanc y examinat ion or test, positive result;R ecorded Elsewher e: No Locat ion: [facility] S ource: EHR Director [employer] june: N Donnellti ce ID: 0001 Miko lable Time: 05:15:00 PM Gracy Mireles [facility] 1 17:00:00 Ultrason ography Completed 201209/12/2020 Antenata l screenin g for malforma tion using ultrason ics;Rich rded Elsewher e: No Locat ion: [facility] S ource: EHR Director [employer] june: N Donnellti ce ID: 0001 Miko lable Time: 04:30:00 PM Gracy Mireles null, [facility] 1 17:00:21 Antenata l screenin g Completed 201209/12/2020 Antenata l screenin g for malforma tion using ultrason ics;Rich rded Elsewher e: No [facility]at ion: [facility] ource: EHR Director [employer] june: N Practi ce ID: 0001 Miko lable Time: 04:30:[address] [facility] 16:59:17 Congenit al malforma tion [id number] Completed 201209/12/2020 Antenata l screenin g for malforma tion using ultrason ics;Rich rded Elsewher e: No Locat ion: [facility] S ource: EHR Director [employer] june: N Practi ce ID: 0001 Miko lable Time: 04:30:[address] [facility] 1 16:59:24 Trauma to perineum and/or vulva during delivery [id number] Completed 201309/12/2020 Unspecif ied trauma to perineum and vulva, unspecif ied as to episode of care in pregnanc y;Record ed Elsewher e: No Locat ion: [facility] S ource: EHR Director [employer] june: N Practi ce ID: 0001 Miko lable Time: 11:30:[address] [facility] 1 17:00:18 Routine antenata l care Completed 201309/12/2020 Supervis ion of other normal pregnanc y;Practi ce ID: [address] [facility] 17:00:05 Excessiv e growth affectin g manageme nt of mother [id number] Completed 201309/12/2020 Excessiv e growth, affectin g manageme nt of mother, antepart um;Recor ded Elsewher e: No [facility]: EHR Director [employer] june: N Ken ce ID: 0001 Miko lable Time: 04:00:00 PM Gracy Mireles [facility] 16:59:39 Delivery normal [id number] Completed 201309/12/2020 Normal delivery ;Practic e ID: 0001 Gracy Mireles [facility], [facility] 16:59:37 Single live from singleto n pregnanc y [id number] Completed 201309/12/2020 Mother with single liveborn ;Practic e ID: 0001 Gracy Mireles [facility], [facility] 17:00:10 Pregnanc y test negative [id number] Completed 201309/12/2020 Pregnanc y examinat ion or test, negative result;R ecorded Elsewher e: No Locat ion: [facility] Ken [facility] ID: 0001 Miko lable Time: 10:30:00 AM Gracy Mireles [facility] 16:59:59 Postpart um care Completed 201309/12/2020 Post Followup ;Recorde d Elsewher e: No Locat ion: [facility] N Ken ce ID: 0001 Miko lable Time: 10:30:00 AM Gracy Mire[facility] 16:59:55 Menstrua tion finding Completed 201309/12/2020 Menometr orrhagia ;Recorde vini Elsewher e: No Locat ion: [facility] S ource: [facility] june: N Ken ce ID: 0001 Miko lable Time: 09:00:00 AM Gracy Mireles [facility] 16:59:49 Postoper ative follow-u p visit Completed 201309/12/2020 Follow-u p examinat ion, followin g unspecif ied surgery; Recorded Elsewher e: No Locat ion: [facility] S ource: EHR Director [employer] june: N Practi ce ID: 0001 Miko lable Time: 04:30:00 PM Gracy Mireles [facility] 16:59:54 Amenorrh ea [id number] Completed 201309/12/2020 Amenorrh ea;Recor ded Elsewher e: No Locat ion: [facility] S ource: EHR [facility] june: N Practi ce ID: 0001 Miko lable Time: 04:00:00 PM Gracy Mireles [facility] 16:59:15 Vaginiti s and vulvovag initis Completed 201309/12/2020 Vaginiti s and vulvovag initis, unspecif ied;Rich rded Elsewher e: No Locat ion: [facility] S ource: EHR [facility] june: N Practi ce ID: 0001 Miko lable Time: 04:00:00 PM Gracy Mireles [facility] 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 17:00:15 Overweig ht [id number] Completed 201309/12/2020 Overweig ht;Recor ded Elsewher e: No Locat ion: [facility] S ource: EHR Director [employer] june: N Practi ce ID: 0001 Miko lable Time: 04:00:00 PM Gracy Mireles [facility] 16:59:52 Speciali zed medical examinat ion Completed 201409/12/2020 Other specifie d chlamydi al diseases ;Recorde d Elsewher e: No Locat ion: [facility] S ource: EHR Director [employer] june: N Practi ce ID: 0001 Miko lable Time: 05:15:00 PM Gracy Mireles [facility] 17:00:16 Venereal disease screenin g Completed 201409/12/2020 Screenin g examinat ion for venereal disease; Recorded Elsewher e: No Locat ion: [facility] S ource: EHR Director [employer] june: N Practi ce ID: 0001 Miko lable Time: 05:15:00 PM Garcy Mireles [facility] 17:00:25 Leukorrh ea [id number] Completed 201409/12/2020 Leukorrh ea, not specifie d as infectiv e;Record ed Elsewher e: No Locat ion: [facility] S ource: EHR Director [employer] june: N Practi ce ID: 0001 Miko lable Time: 05:15:00 PM Gracy Mireles [facility] 16:59:45 Acute vaginiti s [id number] Completed 201509/12/2020 Acute vaginiti s;Record ed Elsewher e: No Locat ion: [facility] S ource: EHR [employer] june: N Practi ce ID: 0001 Miko lable Time: 02:30:00 PM Gracy Mireles [facility] 16:59:14 Hemorrho ids [id number] Completed 201509/12/2020 Hemorrho id;Recor ded Elsewher e: No Locat ion: [facility] S ource: EHR Director [employer] june: N Practi ce ID: 0001 Miko lable Time: 02:30:00 PM Gracy Mireles [facility] 16:59:[address] Concept Completed 201509/12/2020 Encntr for general adult medical exam w/o abnormal findings ;Recorde d Richelle e: No Locat ion: [facility] S ource: EHR Director [employer] june: N Practi ce ID: 0001 Miko lable Time: 10:30:00 AM Gracy dang, [facility] 17:00:12 Pregnanc y detectio n examinat ion Completed 201609/12/2020 Encounte r for pregnanc y test, result positive ;Recorde d Richelle e: No Locat ion: [facility] S ource: EHR Director [employer] june: N Practi ce ID: 0001 Miko lable Time: 09:45:00 AM Gracy dang, [facility] 16:59:57 Secondar y amenorrh ea [id number] Completed 201609/12/2020 Secondar y amenorrh ea;Pract ice ID: 0001 Gracy dang, [facility] 17:00:08 Normal pregnanc y in multigra james [id number] 4106 Completed 201609/12/2020 Encounte r for supervis ion of other normal pregnanc y, 2nd trimeste r;Record ed Elsewher e: No Locat ion: [facility] S ource: EHR Director [employer] june: N Practi ce ID: 0001 Miko lable Time: 08:30:[address] [facility] 16:59:50 Prematur e rupture of membrane s [id number] Completed 201609/12/2020 Full-ter m epi ROM, unsp time betw rupture and onset labor;Pr actice ID: 0001 Grayc dang, [facility] 17:00:02 Lacerati on of female perineum Completed 201609/12/2020 First degree perineal lacerati on during delivery ;Practic e ID: [address] [facility] 16:59:44 Gestatio n period, 39 weeks [id number] Completed 201609/12/2020 39 weeks gestatio n of pregnanc y;Practi ce ID: [address] [facility] 16:59:40 Lochia finding Completed 201609/12/2020 Encounte r for routine postpart um follow-u p;Record ed Elsewher e: No Locat ion: [facility] S ource: EHR Director [employer] june: N Practi ce ID: 0001 Miko lable Time: 09:45:00 AM Gracy Mireles [facility] 16:59:47 Uses combined oral contrace ption [id number] Completed 201709/12/2020 Encounte r for initial prescrip tion of contrace ptive pills;Re corded Elsewher e: No Locat ion: [facility] S ource: EHR Director [employer] june: N Practi ce ID: 0001 Miko lable Time: 10:15:00 AM Gracy Mireles [facility] 16:59:20 Body mass index 25-29 - overweig [id number] Completed 201709/12/2020 Body mass index (BMI) 28.0-28. 9, adult;Re corded Elsewher e: No Locat ion: [facility] S ource: EHR Director [employer] june: N Practi ce ID: 0001 Miko lable Time: 10:15:00 AM Gracy Mireles [facility] 16:59:19 Screenin g for malignan t neoplasm of cervix Completed 201709/12/2020 Screenin g for malignan t neoplasm s of the cervix;R ecorded Elsewher e: No Locat ion: [facility] S ource: EHR Director [employer] june: N Practi ce ID: 0001 Miko lable Time: 10:15:00 AM Gracy Mireles [facility] 17:00:[address] Concept Completed 201809/12/2020 Encntr for technical solutions engineer exam (general ) (routine ) w/o abn findings ;Recorde d Elsewher e: No Locat ion: [facility] S ource: EHR Director [employer] june: N Practi ce ID: 0001 Miko lable Time: 11:15:00 AM Gracy Mireles [facility] 17:00:13 Pregnanc y [id number] Completed 202412/29/[address] [facility] 5 10:32:08 Multigra james of advanced maternal age [id number] Completed [address] [facility] 5 14:42:40 Problem Notes None recorded. Procedures Surgical History Date Name Laterality Status Provider Name and Address Organization Details Recorded Time 09/13/19 21 Date of Last Pap Smear completed Norma Freeman [facility] 12/03/2023 17:17:36 03/18/19 14 Hysteroscopy completed Gracy Mireles [facility] 09/12/2020 17:03:41 Imaging Results None recorded. [...] Prescrib ed Elsewher e: Yes Loca tion: [facility] odify By: ary marin DateTime : [...] Elsewher e: Yes Loca tion: [facility] odify By: justina mendoza DateTime : 09/01/19 14 10:30:00 AM Not Available Not Available Not Available prednison e 50 mg tablet TAKE 1 TABLET BY MOUTH DAILY 05/06 completed Not Available Not Available Not Available Vitamin D2 1,250 mcg (50,000 unit) capsule take 1 capsule (88274FG ITS) by oral route every week 08/31 completed Prescrib ed Elsewher e: No Locat ion: [facility] odify By: [email or web address] trick En counter DateTime : 01/29/20 13 11:56:09 AM Not Available Not Available Not Available norethind lisa (contrace ptive) 0.35 mg tablet take 1 tablet by oral route every day 12/16 completed Prescrib ed Elsewher e: No Locat ion: [facility] odify By: justina Abbott ncounter DateTime : 09/01/19 14 10:30:00 AM Not Available Not Available Not Available sertralin e 20 mg/mL oral concentra te 04/18 completed Prescrib ed Elsewher e: Yes Loca tion: [facility] odify By: [email or web address] Encount er DateTime : 07/06/19 16 02:30:00 [...] e: No Locat ion: [facility] odify By: justina Abbott ncounter DateTime : 10/23/19 14 09:00:00 AM Not Available Not Available Not Available erythromy michel with ethanol 2 % topical gel apply by topical route 2 times every day a thin layer to the affected area(s) in the morning and evening 01/27 completed Prescrib ed Elsewher e: No Locat ion: [facility] odify By: parag Abbott ncounter DateTime : 01/29/20 13 11:56:09 AM Not Available Not Available Not Available Duac 1.2 % (1 % base)-5 % topical gel apply by topical route 2 times every day to the affected area(s) in the morning and evening 12/16 completed Prescrib ed Elsewher e: Yes [facility] By: ary marin DateTime : 10/29/19 [...] e: No Locat ion: Pedro Luis [facility] odify By: alonso mendoza DateTime : 12/17/19 13 05:15:00 PM Not Available Not Available Not Available 28 mg iron-800 mcg tablet 07/19 completed Prescrib ed Elsewher e: Yes Loca tion: [facility] odify By: [email or web address] Encount er DateTime : 04/18/19 19 11:15:00 AM Not Available Not Available Not Available One Daily 27 mg iron-800 mcg tablet take 1 tablet by oral route every day 06/30 completed Prescrib ed Elsewher e: Yes [facility]oca [facility]ion[facility] By: parag mendoza DateTime : 01/28/20 14 04:00:00 PM Not Available Not Available Not Available Anusol-HC 2.5 % topical cream with perineal applicato r apply by topical route 2 times every day to the affected area(s) 08/01 completed Prescrib ed Elsewher e: No [facility] By: ivy Heredia r DateTime : 07/06/19 16 02:30:00 PM Not Available Not Available Not Available Vitals Date Recorded Body height Body mass index (BMI) Body weight Systolic And Diastolic Provider Name and Address Organization Details Last Updated DateTime 11/04/2024 163.2 cm 37.8 kg/m2 095991.79 g 132/84 mm[Hg] Maddie Brandon [facility] 11/04/2024 16:27:37 Date Recorded Body weight Systolic And Diastolic Provider Name and Address Organization Details Last Updated DateTime 11/12/2024 49952.3214 g 117/80 mm[Hg] Morelia Jacques [facility] 11/12/2024 17:44:46 Date Recorded Body height Body mass index (BMI) Body weight Systolic And Diastolic Provider Name and Address Organization Details Last Updated DateTime 11/20/2024 163.2 cm 37.8 kg/m2 314170.51 g 134/85 mm[Hg] Cinthia Castillo [facility] 11/20/2024 15:15:30 Date Recorded Body height Body mass index (BMI) Body weight Systolic And Diastolic Provider Name and Address Organization Details Last Updated DateTime 11/27/2024 163.2 cm 37.1 kg/m2 72941.14 g 138/83 mm[Hg] Christina [facility] 11/27/2024 16:59:42 Date Recorded Body height Body mass index (BMI) Body weight Systolic And Diastolic Provider Name and Address Organization Details Last Updated DateTime 12/29/2024 163.2 cm 33.2 kg/m2 17784.51 g 111/76 mm[Hg] Christina [facility] 12/29/2024 10:30:01 Social History Question Answer Notes LastModified by Organizat ion Details LastModified Time Do You Have An Advance Directive? No [email or web address] Information n ot available 11/04/2024 How Many Years Have You Consumed Alcohol? 4 Information not available 11/04/2024 Are You Blind Or Do You Have Difficulty Seeing? No [email or web address] Information not available 11/04/2024 What Is Your Level Of Caffeine Consumption? Moderate [email or web address] Information not available 11/04/2024 How Much Tobacco Do You Chew? None [email or web address] Information not available 11/04/2024 In The 14 Days Before Symptom Onset, Have You Had Close Contact With A Laboratory-confirme d COVID-19 While That Case Was Ill? No Information n ot available 11/04/2024 In The 14 Days Before Symptom Onset, Have You Had Close Contact With A Person Who Is Under Investigation For COVID-19 While That Person Was Ill? No [email or web address] Information not available 11/04/2024 Have You Been To An Area Known To Be High Risk For COVID-19? No [email or web address] Information not available 11/04/2024 Are You Deaf Or Do You Have Serious Difficulty Hearing? No Information not available 11/04/2024 What Type Of Diet Are You Following? REGULAR [email or web address] Information n ot available 11/04/2024 What Is The Highest Grade Or Level Of School You Have Completed Or The Highest Degree You Have Received? [id number] [email or web address] Information not available 11/04/2024 Are There Any Guns Present In Your Home? No [email or web address] Information not available 11/04/2024 Do You Use Protection During Sex? No [email or web address] Information not available 11/04/2024 Do You Use Your Seat Belt Or Car Seat Routinely? Yes [email or web address] Information not available 11/04/2024 Do You Have Smoke And Carbon Monoxide Detectors In Your Home? Yes [email or web address] Information not available 11/04/2024 How Much Tobacco Do You Smoke? No [email or web address] Information not available 11/04/2024 Do You Use Sunscreen Routinely? Yes [email or web address] Information not available 11/04/2024 Have You Used IV Drugs? No [email or web address] Information not available 11/04/2024 Do You Have Difficulty Walking Or Climbing Stairs? No Information not available 05/30/2022 Sex: Unknown Functional Status Question Answer Note LastModified by Organizat ion Details LastModified Time Do you use any illicit or recreational drugs? No [email or web address] Information not available 11/04/2024 What is your level of alcohol consumption? Occasional [email or web address] Information not available 11/04/2024 Are you able to walk independently without assistance or assistive devices? [email or web address] Information not available 11/04/2024 Are you able to care for yourself independently? 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 No Information not available 05/30/2022 What is your exercise level? Occasional [email or web address] Information not available 11/04/2024 Mental Status Question Answer Note LastModified by Organization D etails LastModified Time Do you feel stressed (tense, restless, nervous, or anxious, or unable to sleep at night)? [id number] [email or web address] Information not available 11/04/2024 Family History Relationship Description Onset Age of this Age Resolved Age Notes LastModified by Organization Details LastModified Time Maternal Grandmother Malignant neoplasm of stomach [email or web address] Not available 2024 10:21:44 Father Atrial fibrillation Not available 10:21:44 Father Cerebrovascu lar accident [email or web address] Not available 16:23:20 Father Hypertensive disorder Not available 2024 16:23:20 Sister Malignant neoplasm of breast [email or web address] Not available 05/16 13:00:13 Mother Asthma [email or web address] Not available 11/04/2024 16:23:20 Maternal Grandfather Malignant neoplasm of colon Not available 2024 16:23:20 Paternal Grandmother Malignant neoplasm of breast [email or web address] Not available 2024 16:23:20 Medical History Condition [...] ICD10 Code Diagnosis IMO Codes Diagnosis Note [id number] Naeem Sebastian MD [place] [address] [address] 09/12/2020 16:45:57 09/12/2020 17:58:14 Venereal disease screening [id number] Z11.3 Gynecologi c examination 32148358 Z01.419 This patient is here for her annual exam. A thorough history was taken. A physical exam was performed. Age appropriat e routine health screening was ordered, performed, and discussed. Recommende d testing was ordered. She was asked to follow up in one year. She will be informed of any test results. Pap - today Bacterial vaginosis [id number] 03665 N76.0 [id number] [facility] [address] [address] 07/19/2021 17:00:09 07/19/2021 17:51:58 Vaginitis 42170634 N76.0 Recurrent vaginal itching (??infecti on).Hx of eczema & sensitive skinUncert ain at this time if there is true infection here or if this is more linked to Eczema/con tact dermatitis type issues. We have reviewed VCG's & sheet was given for additional review at home with specific directions indicated/ circled.Rx Mycolog ointment to keep her comfortabl e & use baking soda soaks until we get the vag swab back. Will portal her & let her know next steps in her plan of care once I get results. Time spent in visit is a total of 15 mins with at least 50% of visit consisting of counseling and review of plan of care. [id number] BESSIE Frazier [place] [address] [address] 05/30/2022 12:38:55 05/30/2022 14:34:10 Gynecologic examination [id number] Z01.419 Take Calcium with Vitamin D 1200mg daily if not receiving in daily diet. It is strongly advised to have an annual flu shot and up can obtain at most pharmacies . If you have not had a TDap shot in the last 10 years you should obtain one as well. Discussed with patient & provided with informatio n regarding Gardisil vaccine to prevent the 4 strains for HPV that cause cervical cancer if under age 26. Encourage safe sexual practices, to use condoms and limit partners if not already in a monogamous relationsh ip. Do monthly self breast exams. Have mammogram yearly or every other year depending on family history. BRCA testing is now available for patients with strong genetic history of female cancer. If interested contact the office. Engage in daily exercise of low impact aerobic exercise 45-60 minutes 4-5 times weekly. Avoid tobacco and illicit drugs as well as using moderation with alcohol intake less than 1-2 8 oz beverages daily. This lifestyle behavior pattern will lead to less health conditions and longer life span. If BMI greater than 25 weight watchers or dietary consult advised. Patient received above instructio ns, and questions have been answered. If you have any questions please call or respond to this email. Patient was made aware of the patient portal and may obtain a paper copy of today's plan if desired. WWEBC - withdrawal . Happy with this methodNo hx of abnormal papsPap last 09/12/20 NILM, HPV (-)paps Q3-5 years, will update next yearSister recently diagnosed with BC at 30, awaiting genetic testing results. We reviewed genetic testing options, handout given. She will consider. Discussed early mammogram, she will consider.S he will update us with result of sisters genetic testingUTD with PCPRTC in 1 year or sooner if needed Family his tory of breast cancer [id number] Z80.3 [id number] VALERIO EID MD [place] [address] [address] 12/03/2023 16:54:39 12/03/2023 18:03:47 Mass of right breast [id number] N63.10 - small 0.5cm lump at edge of R areola- likely benign however given sister's hx of breast cancer at age 30, will evaluate with imaging [id number] Naeem Sebastian MD [place] [address],[place] [address] 04/30/2024 13:54:28 04/30/2024 14:42:40 [id number] VALERIO EID MD [place] [address],[place] [address] 05/06/2024 15:46:20 05/06/2024 16:35:45 test positive [id number] Z32.01 1. Exam today within normal limits.2. Ultrasound today confirms GA and viability. EDC . GC/Clamydi a testing done: will f/u as indicated. 4. ACOG guidelines and plan of care for reviewed with patient. All questions answered.5 . Return to office at 12 weeks for new OB visit6. Will need new OB labs at next visit.7. Genetic screening: desires at 10 weeks, orders given today. screening 2437 15594 Z36.0 Genetic in vestigation procedure 84109756 Z31.430 [id number] Naeem Sebastian MD [place] [address],[place] [address] 06/02/2024 17:30:13 06/03/2024 08:38:33 screening 253844900 Z36.82 Z3A.14 [id number] VALERIO EID MD [place] [address],[place] [address] 06/02/2024 17:30:45 06/05/2024 10:27:36 Candidiasis of vagina 82116422 B37.31 Routine an tenatal care 699290077 Z34.01 [id number] Naeem Sebastian MD [place] [address],[place] [address] 07/01/2024 16:13:00 07/01/2024 16:59:51 [id number] MD Katie Deal [address],[place] [address] 07/20/2024 17:01:24 07/21/2024 08:15:13 care status 537749502 Z34.82 [id number] MD Katie Deal [address],[place] [address] 07/20/2024 17:01:48 07/21/2024 08:14:08 screening for malformation 259514012 Z36.3 Z3A.20 [id number] MD Katie Deal [address],[place] [address] 08/21/2024 09:42:34 08/21/2024 10:52:54 care status 802946291 Z34.82 [id number] MD Katie Deal [address],[place] [address] 09/21/2024 10:18:37 09/21/2024 11:17:47 care status 402602136 Z34.83 63409001 [id number] MD Katie Deal [address],[place] [address] 10/05/2024 16:59:47 10/05/2024 18:02:39 care status 158465301 Z34.83 51754469 [id number] MD Katie Deal [address],[place] [address] 10/19/2024 10:00:38 10/19/2024 10:55:03 Multigravida of advanced maternal age 069311670 O09.523 O26.843 Z3A.33 [id number] [id number] MD Katie Deal [address],[place] [address] 10/19/2024 10:07:31 10/20/2024 05:37:26 care status 430675715 Z34.83 20031732 [id number] VALERIO EID MD [place] [address],[place] [address] 11/02/2024 16:24:55 11/02/2024 16:55:46 Breech presentation 2903428 O32.1XX0 Z3A.35 [id number] [id number] VALERIO EID MD [place] [address],[place] [address] 11/04/2024 16:14:38 11/04/2024 16:52:44 Multigravida of advanced maternal age 027211091 O09.522 [id number] Gestation period, 35 weeks 84106223 Z3A.35 0367104 screening 2437 59458 Z36.85 [id number] Naeem Sebastian MD [place] [address],[place] [address] 11/12/2024 16:53:33 11/13/2024 09:18:51 care status 054784040 Z34.83 [id number] [id number] VALERIO EID MD [place] [address],[place] [address] 11/20/2024 14:46:58 11/20/2024 15:30:11 Multigravida of advanced maternal age 461339465 O09.523 71546616 Gestation period, 37 weeks 52250337 Z3A.37 1703257 [id number] VALERIO EID MD [place] [address],[place] [address] 11/27/2024 16:51:55 11/27/2024 17:51:25 care status 785426719 Z34.83 89744516 [id number] VALERIO EID MD [place] [address],[place] [address] 12/29/2024 10:17:39 12/29/2024 10:52:10 state 81146372 Z39.2 [id number] S/p 4 weeks ago here today for a visit.1. Patient recovering well2. Plans to continue combo feeding3. Interested in POPs for contracept ion at this time. Risks, benefits, and alternativ es reviewed with the patient4. Patient instructed to follow up in 6 months for well woman exam unless need arises prior Health Concerns Section Related Observation LastModified by Organization Detai ls LastModified Time None Recorded Concern Status LastModified by Organization Details LastModified Time None Recorded Advance Directives Directive N: Payers Insurance Date Sequence Insurance Name Policy Number Policy Haney Covered Member ID Haney Member ID Guarantor Name 01/28/2025 2 R [id number] Graham Kinney [id number] Violetta Nirmal 05/28/2022 1 [employer] [id number] Graham Kinney [id number] Violetta Nirmal 11/27/2024 1 [place] [id number] Violetta Kinney [id number] Violetta Nirmal 01/28/2025 1 [facility] [id number] Violetta Abbott Nirmal [id number] Violetta Nirmal 11/27/2024 1 [facility] [id number] Violetta E Nirmal [id number] Violetta Nirmal Notes Date Note Type Note Provider Name and Address Organization Details Recorded Time 11/04/2024 text/html Generic HPI TemplateReported by Patient Maddie dang, [facility] 11/04/2024 16:56:16 11/12/2024 text/html Generic HPI TemplateReported by Patient Naeem Sebastian MD [address], [place], [address], [facility] 11/12/2024 18:01:29 11/20/2024 text/html Generic HPI TemplateReported by Patient VALERIO EID MD [address], [place], [address], [facility] 11/20/2024 15:29:32 11/27/2024 text/html Generic HPI TemplateReported by Patient VALERIO EID MD [address], [place], [address], [facility] 11/27/2024 17:18:08 12/29/2024 text/html VisitReported by PatientROS as noted in the HPI S/p on 12/02/24 at 39 weeks gestation. was uncomplicated. Complications with delivery: none. Patient denies any specific problems since delivery. Patient overall feeling well. Patient is combo feeding without problems. Has not had a period yet. No bleeding. Bowel and bladder function are normal. Pap due 2024. Denies any signs or symptoms of depression. Is coping with parenting well. Patient has not been sexually active since delivery. Patient is interested in contraception at this time. Partner considering vasectomy. Christina dang, [facility] 12/29/2024 10:52:46 OBGyn Episode Ob Episode Information Episode Created Date Number of Fetuses Patient Bloodtype Patient rh Status Prepregnancy Weight lbs Domestic Partner Domestic Partner Phone Father Name Supervisor Pre Wave Status 09/13/19 21 1 CLOSED Fetus Data First Name Last Name Admitted to NICU Weight (g) Sex Living Outcome Pediatric Complications Fetus ID Race Codes Race Delivery Type F Full Term [id number] Vaginal Delivery Rogelio Calculation Initial Rogelio Date Initial Exam Date Initial Exam Provider Initial Ultrasound Date Last Menstrual Period Date Ultra Sound Weeks Gestation 0 Eighteen To Twenty Week Rogelio Update Ultra Sound Date Fundal Height At Umbil Quickening Date Ultra Sound Latest Weeks Gestation Final Rogelio Confirmed By Final Rogelio Confirmed Date Final Rogelio Date Ultra Sound Latest Days Gestation 0 0 Menstrual History Last Menstrual Date Menses Monthly On Bcp Conception Prior Menses Frequency Hcg Plus Date Menarche Onset Age Delivery Information Delivery Date Delivery Type Labor Anesthesia Weeks Gestation Incision Type Labor Labor Length Hrs Delivered By Post Complications Tubal Sterilization Discharge Date Comments 4 Discharge Information Feeding Method Contraceptive Method Maternal HG B and HCT Levels Ob Episode Information Episode Created Date Number of Fetuses Patient Bloodtype Patient rh Status Prepregnancy Weight lbs Domestic Partner Domestic Partner Phone Father Name Supervisor Pre Wave Status 09/13/19 21 1 CLOSED Fetus Data First Name Last Name Admitted to NICU Weight (g) Sex Living Outcome Pediatric Complications Fetus ID Race Codes Race Delivery Type F Full Term [id number] Vaginal Delivery Rogelio Calculation Initial Rogelio Date Initial Exam Date Initial Exam Provider Initial Ultrasound Date Last Menstrual Period Date Ultra Sound Weeks Gestation 0 Eighteen To Twenty Week Rogelio Update Ultra Sound Date Fundal Height At Umbil Quickening Date Ultra Sound Latest Weeks Gestation Final Rogelio Confirmed By Final Rogelio Confirmed Date Final Rogelio Date Ultra Sound Latest Days Gestation 0 0 Menstrual History Last Menstrual Date Menses Monthly On Bcp Conception Prior Menses Frequency Hcg Plus Date Menarche Onset Age Delivery Information Delivery Date Delivery Type Labor Anesthesia Weeks Gestation Incision Type Labor Labor Length Hrs Delivered By Post Complications Tubal Sterilization Discharge Date Comments 7 Discharge Information Feeding Method Contraceptive Method Maternal HG B and HCT Levels Ob Episode Information Episode Created Date Number of Fetuses Patient Bloodtype Patient rh Status Prepregnancy Weight lbs Domestic Partner Domestic Partner Phone Father Name Supervisor Pre Wave Status 06/03/19 25 1 A Positive 203 CLOSED Fetus Data First Name Last Name Admitted to NICU Weight (g) Sex Living Outcome Pediatric Complications Fetus ID Race Codes Race Delivery Type Tonja dominique false 3912.23 1 M true Full Term [id number] Vaginal Delivery Problems Problem Notes Problem Name Start Date End Date Resolution Snomed Code Not e Multigravida of advanced maternal age 0508/06/2024 [id number] Rogelio Calculation Initial Rogelio Date Initial Exam [...] Sound Latest Days Gestation 07/21/19 25 20 [id number] 06/02/2024 12/06/19 25 4 Pre-geni Flowsheet Flowsheet Date 06/02/2024 Sarmiento Score Blood [...] Weight in lbs Pre/Post Dialysis Refused Weight 204.466783241495 BP Diastolic BP Location Tested BP Systolic BP Type 75 L arm 123 sitting Fetus Heart Rate Present A 158 Fetus Movement A No Comments Patient presents to [facility] care. Hx of 2 uncomplicated SVDs. otherwise uncomplicated. No nausea or cramping. NT/NB wnl today, LR male NIPT! New OB labs also wnl. RTC 4 weeks for routine care. Flowsheet Date 07/01/2024 Sarmiento Score Blood Edema Fundus Height Fundus Units Glucose Ketones Leukocytes Nitrite Labor Signs Protein Cervic Dilation Cervic Effacement Cervic Station Type Weight in lbs Pre/Post Dialysis Refused Weight 207.915023098887 BP Diastolic BP Location Tested BP Systolic [...] Weight in lbs Pre/Post Dialysis Refused Weight 209.028951726742 BP Diastolic BP Location Tested BP Systolic [...] Weight in lbs Pre/Post Dialysis Refused Weight 210.556402018873 BP Diastolic BP Location Tested BP Systolic [...] Weight in lbs Pre/Post Dialysis Refused Weight 211.895415010322 BP Diastolic BP Location Tested BP Systolic [...] Type Weight in lbs Pre/Post Dialysis Refused 213.237244133933 BP Diastolic BP Location Tested BP Systolic [...] Type Weight in lbs Pre/Post Dialysis Refused 168.321928064962 BP Diastolic BP Location Tested BP Systolic [...] Weight in lbs Pre/Post Dialysis Refused Weight 221.558377110171 BP Diastolic BP Location Tested BP Systolic [...] Type Weight in lbs Pre/Post Dialysis Refused 220.928900067228 BP Diastolic BP Location Tested BP Systolic [...] Weight in lbs Pre/Post Dialysis Refused Weight 222.6479852536 BP Diastolic BP Location Tested BP Systolic [...] Weight in lbs Pre/Post Dialysis Refused Weight 218.255374196755 BP Diastolic BP Location Tested BP Systolic [...] Weight in lbs Pre/Post Dialysis Refused Weight 195.263696384305 BP Diastolic BP Location Tested BP Systolic [...]
--- OUTSIDE RECORDS SUMMARY | 2025-01-29 21:29 | XMS_ITS | Continuity of Care Document ---
[facility] Address [address] [place] [address] Care Team Providers Care Cardiology Clinical Consultant Name Role Phone PETRONAZAKI LEO Primary Care Provider Assessment No assessment recorded. Plan of Treatment Reminders Order Date Submit Date Provider Last Modified By Organization Details Last Modified Time Details Appointments None record ed. Lab None record ed. Referral None record ed. Procedures None record ed. Surgeries None record ed. Imaging None record ed. Medication Orders None record ed. Patient TargetsNo targets recorded. Patient InstructionsNo instructions recorded. Reason for Referral None Reported. Results Created Date Observation Date Name Description Value Unit Range Abnormal Flag Note LastModifiedBy Organization Detail LastModifiedTime 06/04/1906/03/2024 drug scree n, urine Amphetamines : negati ve Not Available [place] [address], [place], [address], 06/03/2024 17:47:42 06/04/19 25 06/03/2024 drug scree n, urine Cannabinoids : negati ve Not Available [place] [address], [place], [address], 06/03/2024 17:47:42 06/04/19 25 06/03/2024 drug scree n, urine Cocaine: negati ve Not Available [place] [address], [place], [address], 06/03/2024 17:47:42 06/04/19 25 06/03/2024 drug scree n, urine Opiates: negati ve Not Available [place] [address], [place], [address], 06/03/2024 17:47:42 06/04/19 25 06/03/2024 drug scree n, urine Phenocyclidi ne: negati ve Not Available [place] [address], [place], [address], 06/03/2024 17:47:42 06/04/19 25 06/03/2024 drug scree n, urine Barbiturates : negati ve Not Available [place] [address], [place], [address], 06/03/2024 17:47:42 06/04/19 25 06/03/2024 drug scree n, urine Benzodiazepi romina: negati ve Not Available [place] [address], [place], [address], 06/03/2024 17:47:42 06/04/19 25 06/03/2024 drug scree n, urine Ethanol: negati ve Not Available [place] [address], [place], [address], 06/03/2024 17:47:42 06/04/19 25 06/03/2024 drug scree n, urine Hallucinogen s: negati ve Not Available [place] [address], [place], [address], 06/03/2024 17:47:42 06/04/19 25 06/03/2024 drug scree n, urine Inhalants: negati ve Not Available [place] [address], [place], [address], 06/03/2024 17:47:42 06/04/19 25 06/03/2024 drug scree n, urine Anabolic Steroids: negati ve Not Available [place] [address], [place], [address], 06/03/2024 17:47:42 09/22/1909/21/2024 HEMAT OCRIT (HCT) HCT 32.3 % (based on docume nted legal sex) 34.0-4 5.0 low Not Available [facility] (Lab) [address], [place], [address], 09/22/2024 12:01:19 09/22/19 25 09/21/2024 HEMOG LOBIN (HGB) HGB 10.4 g/dL (based on docume nted legal sex) 11.6-1 5.4 low Not Available [facility] (Lab) [address], [place], [address], 09/22/2024 12:01:20 09/22/19 25 09/21/2024 GTT - GESTA JULIUS L GARFIELD Beltrán, ACOG OB glucose, 1 hour screen 146 mg/dL 70-135 high Not Available [facility] (Lab) [address] [place], [address], 09/22/2024 12:01:20 09/22/19 25 09/21/2024 HIV 1/2 ANTIG EN/AN TIBOD Y, REFLE X CONFI RMATI ON HIV antigen/anti body Nonrea ctive nonrea ctive HIV-1 antig en and HIV-1 /HIV- 2 antib odies were not detec greta. No labor atory evide nce of HIV infec tion. Not Available [facility] (Lab) [address], [place], [address], 09/22/2024 12:01:21 09/22/19 25 09/21/2024 RPR SCREE N, REFLE X TITER /CONF IRMAT ION RPR qualitative Nonrea ctive nonrea ctive Not Available [facility] (Lab) [address] [place], [address], 09/22/2024 12:01:21 09/29/1909/28/2024 GTT - GESTA JULIUS L, 3 HOUR, ACOG glucose, fasting acog 84 mg/dL 70-94 Not Available [facility] (Lab) [address] [place], [address], 09/29/2024 03:44:44 09/29/19 25 09/28/2024 GTT - GESTA JULIUS L, 3 HOUR, ACOG glucose, 1 hour acog 181 mg/dL 70-179 high Not Available [facility] (Lab) [address] [place], [address], 09/29/2024 03:44:44 09/29/19 25 09/28/2024 GTT - GESTA JULIUS L, 3 HOUR, ACOG glucose, 2 hour acog 150 mg/dL 70-154 Not Available [facility] (Lab) [address] [place], [address], 09/29/2024 03:44:44 09/29/19 25 09/28/2024 GTT - GESTA JULIUS L, 3 HOUR, ACOG glucose, 3 hour acog 127 mg/dL 70-139 Not Available [facility] (Lab) [address] [place], [address], 09/29/2024 03:44:44 11/05/19 25 11/04/2024 CULTU RE: GROUP B STREP SCREE N, REFLE X SUSCE PTIBI LITY result report SEE RESULT S BELOW abnormal Test: Cultu re: Group B Strep , Refle x Susce ptibi lity ([facility] ) Speci men Sourc e: Vagin a/Rec angelique Speci men Type: Vagin al/Re ctal Speci men Date: 2024 1702 Resul t Date: 2024 1453 Resul t Statu s: Final resul t Abnor mal: Yes Resul kasiag Lab: [facility] [address] [facility] [address] Tel: CULTU RE ----- ----- ----- --- [...] beatris for these drugs . Not Available [facility] (Lab) [address], [place], [address], 11/08/2024 15:56:27 06/03/19 25 06/02/2024 US, obste tric, nucha l trans lucen cy No observ ation record ed. [email or web address] [address], [place], [address], 06/02/2024 22:49:25 06/03/19 25 06/02/2024 US, obste tric, nucha l trans lucen cy No observ ation record ed. [email or web address] [place] [address], [place], [address], 06/02/2024 18:53:48 07/21/19 25 07/20/2024 US, obste tric, 2nd or 3rd trime ster No observ ation record ed. [email or web address] [place] [address], [place], [address], 07/20/2024 18:43:23 07/21/19 25 07/20/2024 US, obste tric, follo w-up No observ ation record ed. [email or web address] [address], [place], [address], 08/06/2024 14:42:59 10/20/19 25 10/19/2024 US, obste tric, follo w-up No observ ation record ed. [email or web address] [place] [address], [place], [address], 10/19/2024 18:42:11 10/20/19 25 10/19/2024 US, obste tric, follo w-up No observ ation record ed. [email or web address] Vivi [address], [place], [address], 10/21/2024 16:49:04 11/03/19 25 11/02/2024 US, obste tric, limit ed No observ ation record ed. [email or web address] [place] [address], [place], [address], 11/02/2024 18:27:07 11/03/19 25 11/02/2024 , obste tric, limit ed No observ ation record ed. LESTER Vivi [address], [place], [address], 11/02/2024 17:21:55 Result Notes None recorded. Problems Name Problem SNOMED Code Status Onset Date Resolution Date Notes Provider Name and Address Organization Details Recorded Time Complete Completed 201209/12/2020 Legally unspecif ied , complete , without mention of complica tion;Rec orded Elsewher e: No Locat ion: [facility] S ource: [employer] june: N Ken ce ID: 0001 Miko lable Time: 06:30:00 PM Gracy Mireles [facility] 16:59:22 Primigra james [id number] Completed 201209/12/2020 Supervis ion of normal first pregnanc y;Record ed Elsewher e: No Locat ion: [facility] S ource: [employer] june: N Ken ce ID: 0001 Miko lable Time: 05:15:00 PM Gracy Mireles [facility] 1 17:00:04 Pregnanc y test positive [id number] Completed 201209/12/2020 Pregnanc y examinat ion or test, positive result;R ecorded Elsewher e: No Locat ion: [facility] S ource: [employer] june: N Donnellti ce ID: 0001 Miko lable Time: 05:15:00 PM Gracy Mireles [facility] 1 17:00:00 Ultrason ography Completed 201209/12/2020 Antenata l screenin g for malforma tion using ultrason ics;Rich rded Elsewher e: No Locat ion: [facility] S ource: [employer] june: N Donnellti ce ID: 0001 Miko lable Time: 04:30:00 PM Gracy Mireles [facility] 1 17:00:21 Antenata l screenin g Completed 201209/12/2020 Antenata l screenin g for malforma tion using ultrason ics;Rich rded Elsewher e: No Locat ion: [facility] S ource: [employer] june: N Donnellti ce ID: 0001 Miko lable Time: 04:30:00 PM Gracy Mireles [facility] 1 16:59:17 Congenit al malforma tion [id number] Completed 201209/12/2020 Antenata l screenin g for malforma tion using ultrason ics;Rich rded Elsewher e: No Locat ion: [facility] S ource: [employer] june: N Donnellti ce ID: 0001 Miko lable Time: 04:30:00 PM Gracy Mireles [facility] 16:59:24 Trauma to perineum and/or vulva during delivery [id number] Completed 201309/12/2020 Unspecif ied trauma to perineum and vulva, unspecif [facility];Record ed Elsewher e: No Locat ion: [facility] S ource: [employer] june: N Donnellti ce ID: 0001 Miko lable Time: 11:30:00 AM Gracy dang, [facility] 17:00:18 Routine antenata l care Completed 201309/12/2020 Supervis ion of other normal pregnanc y;Practi ce ID: 0001 Gracy dang, [facility] 17:00:05 Excessiv e growth affectin g manageme nt of mother [id number] Completed 201309/12/2020 Excessiv e growth, affectin g manageme nt of mother, antepart um;Recor ded Elsewher e: No Locat ion: [facility] S ource: [employer] june: N Donnellti ce ID: 0001 Miko lable Time: 04:00:00 PM Gracy dang [facility] 16:59:39 Delivery normal [id number] Completed 201309/12/2020 Normal delivery ;Practic e ID: 0001 Gracy dang, [facility] 16:59:37 [facility] [id number] Completed 201309/12/2020 Mother with single liveborn ;Practic e ID: 0001 Gracy Mireles [facility], [facility] 17:00:10 Pregnanc y test negative [id number] Completed 201309/12/2020 Pregnanc y examinat ion or test, negative result;R ecorded Elsewher e: No Locat ion: [facility] S ource: [employer] june: N Practi ce ID: 0001 Miko lable Time: 10:30:00 AM Gracy dang [facility] 16:59:59 Postpart um care Completed 201309/12/2020 Post Followup ;Recorde d Elsewher e: No Locat ion: Deniserachele milena [facility] S ource: [employer] Writer june: N Practi ce ID: 0001 Miko lable Time: 10:30:00 AM Gracy Mireles [facility] 16:59:55 Menstrua tion finding Completed 201309/12/2020 Menometr orrhagia ;Recorde d Elsewher e: No [facility]: [employer] june: N Practi ce ID: 0001 Miko lable Time: 09:00:00 AM Gracy Mireles [facility] 16:59:49 Postoper ative follow-u p visit Completed 201309/12/2020 Follow-u p examinat ion, followin g unspecif ied surgery; Recorded Elsewher e: No [facility]: [employer] june: N Practi ce ID: 0001 Miko lable Time: 04:30:00 PM Gracy Mireles [facility] 16:59:54 Amenorrh ea [id number] Completed 201309/12/2020 Amenorrh ea;Recor ded Elsewher e: No Locat ion: Pedro Luis abbott [facility] S ource: [employer] june: N Practi ce ID: 0001 Miko lable Time: 04:00:00 PM Gracy Mireles [facility] 16:59:15 Vaginiti s and vulvovag initis Completed 201309/12/2020 Vaginiti s and vulvovag initis, unspecif ied;Rich rded Elsewher e: No Locat ion: Pedro Luis [facility] S ource: [employer] Writer june: N Practi ce ID: 0001 Miko lable Time: 04:00:00 PM Gracy Mireles [facility] 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 17:00:15 Overweig ht [id number] Completed 201309/12/2020 Overweig ht;Recor ded Elsewher e: No Locat ion: [facility] milena [facility] S ource: [employer] june: N Practi ce ID: 0001 Miko lable Time: 04:00:00 PM Gracy Mireles [facility] 16:59:52 Speciali zed medical examinat ion Completed 201409/12/2020 Other specifie d chlamydi al diseases ;Recorde d Elsewher e: No Locat ion: [facility] milena [facility] S ource: [employer] june: N Practi ce ID: 0001 Miko lable Time: 05:15:00 PM Gracy Mireles [facility] 17:00:16 Venereal disease screenin g Completed 201409/12/2020 Screenin g examinat ion for venereal disease; Recorded Elsewher e: No Locat ion: [facility] milena [facility] S ource: [employer] june: N Practi ce ID: 0001 Miko lable Time: 05:15:00 PM Gracy Mireles [facility] 17:00:25 Leukorrh ea [id number] Completed 201409/12/2020 Leukorrh ea, not specifie d as infectiv e;Record ed Elsewher e: No Locat ion: [facility] milena [facility] S ource: [employer] june: N Practi ce ID: 0001 Miko lable Time: 05:15:00 PM Gracy Mireles [facility] 16:59:45 Acute vaginiti s [id number] Completed 201509/12/2020 Acute vaginiti s;Record ed Elsewher e: No Locat ion: [facility] S ource: [employer] june: N Practi ce ID: 0001 Miko lable Time: 02:30:00 PM Gracy Mireles [facility] 16:59:14 Hemorrho ids [id number] Completed 201509/12/2020 Hemorrho id;Recor ded Elsewher e: No Locat ion: [facility] S ource: [employer] june: N Practi ce ID: 0001 Miko lable Time: 02:30:00 PM Gracy Mireles [facility] 16:59:[address] Concept Completed 201509/12/2020 Encntr for general adult medical exam w/o abnormal findings ;Recorde d Elsewher e: No Locat ion: [facility] S ource: [employer] june: N Practi ce ID: 0001 Miko lable Time: 10:30:00 AM Gracy Mireles [facility] 17:00:12 Pregnanc y detectio n examinat ion Completed 201609/12/2020 Encounte r for pregnanc y test, result positive ;Recorde d Elsewher e: No Locat ion: [facility] S ource: [employer] june: N Practi ce ID: 0001 Miko lable Time: 09:45:00 AM Gracy Mireles [facility] 16:59:57 Secondar y amenorrh ea [id number] Completed 201609/12/2020 Secondar y amenorrh ea;Pract ice ID: 0001 Gracy Mireles [facility] 06/28/202 1 17:00:08 Normal pregnanc y in kaitlina james [id number] 4106 Completed 201609/12/2020 Encounte r for supervis ion of other normal pregnanc y, 2nd trimeste r;Record ed Elsewher e: No [facility]: [employer] june: N Practi ce ID: 0001 Miko lable Time: 08:30:00 AM Gracy Mireles [facility] 16:59:50 Prematur e rupture of membrane s [id number] Completed 201609/12/2020 Full-ter m epi ROM, unsp time betw rupture and onset labor;Pr actice ID: 0001 Gracy Mireles [facility] 17:00:02 Lacerati on of female perineum Completed 201609/12/2020 First degree perineal lacerati on during delivery ;Practic e ID: 0001 Gracy Mireles [facility], [facility] 16:59:44 Gestatio n period, 39 weeks [id number] Completed 201609/12/2020 39 weeks gestatio n of pregnanc y;Practi ce ID: 0001 Gracy Mireles [facility] 16:59:40 Lochia finding Completed 201609/12/2020 Encounte r for routine postpart um follow-u p;Record ed Elsewher e: No Locat ion: [facility] S ource: [employer] Writer june: N Practi ce ID: 0001 Miko lable Time: 09:45:00 AM Gracy Mireles [facility] 16:59:47 Uses combined oral contrace ption [id number] Completed 201709/12/2020 Encounte r for initial prescrip tion of contrace ptive pills;Re corded Elsewher e: No Locat ion: Pedro Luis abbott [facility] S ource: [employer] june: N Ken ce ID: 0001 Miko lable Time: 10:15:00 AM Gracy Mireles [facility] 16:59:20 Body mass index 25-29 - overweig [id number] Completed 201709/12/2020 Body mass index (BMI) 28.0-28. 9, adult;Re corded Elsewher e: No Locat ion: Pedro Luis [facility] S ource: [employer] june: N Ken ce ID: 0001 Miko lable Time: 10:15:00 AM Gracy Mireles [facility] 16:59:19 Screenin g for malignan t neoplasm of cervix Completed 201709/12/2020 Screenin g for malignan t neoplasm s of the cervix;R ecorded Elsewher e: No [facility] j[facility]: N Ken ce ID: 0001 Miko lable Time: 10:15:00 AM Gracy Mireles [facility] 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 S ource: [employer] june: N Ken ce ID: 0001 Miko lable Time: 11:15:00 AM Gracy Mireles [facility] 17:00:13 Pregnanc y [id number] Completed 202412/29/2024 Christina Osorio [facility] 5 10:32:08 Multigra james of advanced maternal age [id number] Completed 2024 Kim Chilel [facility] 5 14:42:40 Problem Notes None recorded. Procedures Surgical History Date Name Laterality Status Provider Name and Address Organization Details Recorded Time 09/13/19 21 Date of Last Pap Smear completed Norma Freeman [facility] 12/03/2023 17:17:36 03/18/19 14 Hysteroscopy completed Gracy Mireles [facility] 09/12/2020 17:03:41 Imaging Results None recorded. [...] e: Yes Loca tion: Pedro Luis abbott [facility] Jamie odify By: ary marin DateTime : [...] Prescrib ed Elsewher e: Yes Loca tion: [facility] odify By: justina Abbott ncounter DateTime : 09/01/19 14 10:30:00 AM Not Available Not Available Not Available prednison e 50 mg tablet TAKE 1 TABLET BY MOUTH DAILY 05/06 completed Not Available Not Available Not Available Vitamin D2 1,250 mcg (50,000 unit) capsule take 1 capsule (64907LB ITS) by oral route every week 08/31 completed Prescrib ed Elsewher e: No Locat ion: [facility] odify By: [email or web address] En counter DateTime : 01/29/20 13 11:56:09 AM Not Available Not Available Not Available norethind lisa (contrace ptive) 0.35 mg tablet take 1 tablet by oral route every day 12/16 completed Prescrib ed Elsewher e: No Locat ion: [facility] odify By: justina baileyunter DateTime : 09/01/19 14 10:30:00 AM Not Available Not Available Not Available sertralin e 20 mg/mL oral concentra te 04/18 completed Prescrib ed Elsewher e: Yes Loca tion: [facility] odify By: [email or web address] Encount er DateTime : 07/06/19 16 02:30:00 [...] Prescrib ed Elsewher e: No Locat ion: [facility] odify By: justina Abbott ncounter DateTime : 10/23/19 14 09:00:00 AM Not Available Not Available Not Available erythromy michel with ethanol 2 % topical gel apply by topical route 2 times every day a thin layer to the affected area(s) in the morning and evening 01/27 completed Prescrib ed Elsewher e: No Locat ion: Pedro Luis abbott [facility] odify By: parag Abbott ncountazeem DateTime : 01/29/20 13 11:56:09 AM Not Available Not Available Not Available Duac 1.2 % (1 % base)-5 % topical gel apply by topical route 2 times every day to the affected area(s) in the morning and evening 12/16 completed Prescrib ed Elsewher e: Yes Loca tion: Pedro Luis abbott [facility] odify By: ary marin DateTime : [...] e: No Locat ion: Pedro Luis abbott [facility] odify By: alonso [email or web address] DateTime : 12/17/19 13 05:15:00 PM Not Available Not Available Not Available 28 mg iron-800 mcg tablet 07/19 completed Prescrib ed Elsewher e: Yes Loca tion: Pedro Luis abbott [facility] odify By: [email or web address] Encount er DateTime : 04/18/19 19 11:15:00 AM Not Available Not Available Not Available One Daily 27 mg iron-800 mcg tablet take 1 tablet by oral route every day 06/30 completed Prescrib ed Elsewher e: Yes Loca tion: Pedro Luis abbott [facility] odify By: parag [email or web address] DateTime : 01/28/20 14 04:00:00 PM Not Available Not Available Not Available Anusol-HC 2.5 % topical cream with perineal applicato r apply by topical route 2 times every day to the affected area(s) 08/01 completed Prescrib terri Peoples e: No Locat ion: [facility] Jamie gar By: [email or web address] Encounrubina r DateTime : 07/06/19 16 02:30:00 PM Not Available Not Available Not Available Vitals Date Recorded Body height Body mass index (BMI) Body weight Systolic And Diastolic Provider Name and Address Organization Details Last Updated DateTime 11/27/2024 163.2 cm 37.1 kg/m2 08187.14 g 138/83 mm[Hg] Christina Osorio [facility] 11/27/2024 16:59:42 Social History Question Answer Notes LastModified by Organizat ion Details LastModified Time Do You Have An Advance Directive? No Information n ot available 11/04/2024 How Many Years Have You Consumed Alcohol? 4 Information not available 11/04/2024 Are You Blind Or Do You Have Difficulty Seeing? No [email or web address] Information not available 11/04/2024 What Is Your Level Of Caffeine Consumption? Moderate [email or web address] Information not available 11/04/2024 How Much Tobacco Do You Chew? None [email or web address] Information not available 11/04/2024 In The 14 Days Before Symptom Onset, Have You Had Close Contact With A Laboratory-confirme d COVID-19 While That Case Was Ill? No [email or web address] Information n ot available 11/04/2024 In The 14 Days Before Symptom Onset, Have You Had Close Contact With A Person Who Is Under Investigation For COVID-19 While That Person Was Ill? No Information not available 11/04/2024 Have You Been To An Area Known To Be High Risk For COVID-19? No [email or web address] Information not available 11/04/2024 Are You Deaf Or Do You Have Serious Difficulty Hearing? No [email or web address] Information not available 11/04/2024 What Type Of Diet Are You Following? REGULAR [email or web address] Information n ot available 11/04/2024 What Is The Highest Grade Or Level Of School You Have Completed Or The Highest Degree You Have Received? [id number] [email or web address] Information not available 11/04/2024 Are There Any Guns Present In Your Home? No [email or web address] Information not available 11/04/2024 Do You Use Protection During Sex? No [email or web address] Information not available 11/04/2024 Do You Use Your Seat Belt Or Car Seat Routinely? Yes [email or web address] Information not available 11/04/2024 Do You Have Smoke And Carbon Monoxide Detectors In Your Home? Yes [email or web address] Information not available 11/04/2024 How Much Tobacco Do You Smoke? No Information not available 11/04/2024 Do You Use Sunscreen Routinely? Yes [email or web address] Information not available 11/04/2024 Have You Used IV Drugs? No [email or web address] Information not available 11/04/2024 Do You Have Difficulty Walking Or Climbing Stairs? No Information not available 05/30/2022 Sex: Unknown Functional Status Question Answer Note LastModified by Organizat ion Details LastModified Time Do you use any illicit or recreational drugs? No Information not available 11/04/2024 What is your level of alcohol consumption? Occasional [email or web address] Information not available 11/04/2024 Are you able to walk independently without assistance or assistive devices? YESWOREST [email or web address] Information not available 11/04/2024 Are you able to care for yourself independently? 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 No Information not available 05/30/2022 What is your exercise level? Occasional [email or web address] Information not available 11/04/2024 Mental Status Question Answer Note LastModified by Organization D etails LastModified Time Do you feel stressed (tense, restless, nervous, or anxious, or unable to sleep at night)? [id number] [email or web address] Information not available 11/04/2024 Family History Relationship Description Onset Age of this Age Resolved Age Notes LastModified by Organization Details LastModified Time Maternal Grandmother Malignant neoplasm of stomach Not available 2024 10:21:44 Father Atrial fibrillation [email or web address] Not available 10:21:44 Father Cerebrovascu lar accident [email or web address] Not available 16:23:20 Father Hypertensive disorder [email or web address] Not available 2024 16:23:20 Sister Malignant neoplasm of breast [email or web address] Not available 05/16 13:00:13 Mother Asthma [email or web address] Not available 11/04/2024 16:23:20 Maternal Grandfather Malignant neoplasm of colon [email or web address] Not available 2024 16:23:20 Paternal Grandmother Malignant neoplasm of breast [email or web address] Not available 2024 16:23:20 Medical History Condition [...] ICD10 Code Diagnosis IMO Codes Diagnosis Note [id number] VALERIO EID MD [address],[place] [address] 11/02/2024 16:24:55 11/02/2024 16:55:46 Breech presentation [id number] O32.1XX0 Z3A.35 [id number] MD Katie MARTINEZ [address],[place] [address] 11/04/2024 16:14:38 11/04/2024 16:52:44 Multigravida of advanced maternal age [id number] O09.522 [id number] Gestation period, 35 weeks 57664977 Z3A.35 6786265 screening 2437 67604 Z36.85 [id number] Naeem Sebastian MD [place] [address],[place] [address] 11/12/2024 16:53:33 11/13/2024 09:18:51 care status [id number] Z34.83 [id number] VALERIO EID MD [place] [address],[place] [address] 11/20/2024 14:46:58 11/20/2024 15:30:11 Multigravida of advanced maternal age 967355260 O09.523 54404298 Gestation period, 37 weeks 60747833 Z3A.37 [id number] VALERIO EID MD [place] [address],[place] [address] 11/27/2024 16:51:55 11/27/2024 17:51:25 care status 894721827 Z34.83 [id number] Health Concerns Section Related Observation LastModified by Organization Detai ls LastModified Time None Recorded Concern Status LastModified by Organization Details LastModified Time None Recorded Payers Encounter Date Sequence Insurance Name Policy Number Policy Haney Covered Member ID Haney Member ID Guarantor Name 11/27/2024 2 [employer] [id number] Graham Kinney [id number] Violetta Kinney 11/27/2024 1 [facility] [id number] Violetta Kinney [id number] Violetta Kinney Notes Date Note Type Note Provider Name and Address Organization Details Recorded Time 11/27/2024 text/html Generic HPI TemplateReported by Patient VALERIO EID MD [address], [place], [address], [place] [facility] 11/27/2024 17:18:08 OBGyn Episode Ob Episode Information Episode Created Date Number of Fetuses Patient Bloodtype Patient rh Status Prepregnancy Weight lbs Domestic Partner Domestic Partner Phone Father Name Police Clerk Status 06/03/19 25 1 A Positive 203 CLOSED Fetus Data First Name Last Name Admitted to NICU Weight (g) Sex Living Outcome Pediatric Complications Fetus ID Race Codes Race Delivery Type Tonja dominique false 3912.23 1 M true Full Term [id number] Vaginal Delivery Problems Problem Notes Problem Name Start Date End Date Resolution Snomed Code Not e Multigravida of advanced maternal age 0508/06/2024 [id number] Rogelio Calculation Initial Rogelio Date Initial Exam [...] Sound Latest Days Gestation 07/21/19 25 20 [email or web address] 06/02/2024 12/06/19 25 4 Pre-geni Flowsheet Flowsheet [...] Weight in lbs Pre/Post Dialysis Refused Weight 204.567890902070 BP Diastolic BP Location Tested BP Systolic BP Type 75 L arm 123 sitting Fetus Heart Rate Present A 158 Fetus Movement A No Comments Patient presents to [facility] care. Hx of 2 uncomplicated SVDs. otherwise uncomplicated. No nausea or cramping. NT/NB wnl today, LR male NIPT! New OB labs also wnl. RTC 4 weeks for routine care. Flowsheet Date 07/01/2024 Sarmiento Score Blood Edema Fundus Height Fundus Units Glucose Ketones Leukocytes Nitrite Labor Signs Protein Cervic Dilation Cervic Effacement Cervic Station Type Weight in lbs Pre/Post Dialysis Refused Weight 207.024701755493 BP Diastolic BP Location Tested BP Systolic [...] Weight in lbs Pre/Post Dialysis Refused Weight 209.917871454426 BP Diastolic BP Location Tested BP Systolic [...] Weight in lbs Pre/Post Dialysis Refused Weight 210.558830733025 BP Diastolic BP Location Tested BP Systolic [...] Weight in lbs Pre/Post Dialysis Refused Weight 211.918622636090 BP Diastolic BP Location Tested BP Systolic [...] Type Weight in lbs Pre/Post Dialysis Refused 213.452684942321 BP Diastolic BP Location Tested BP Systolic [...] Type Weight in lbs Pre/Post Dialysis Refused 168.895318995260 BP Diastolic BP Location Tested BP Systolic [...] Weight in lbs Pre/Post Dialysis Refused Weight 221.925855914766 BP Diastolic BP Location Tested BP Systolic [...] Type Weight in lbs Pre/Post Dialysis Refused 220.890244193527 BP Diastolic BP Location Tested BP Systolic [...] Weight in lbs Pre/Post Dialysis Refused Weight 222.2490622687 BP Diastolic BP Location Tested BP Systolic [...] Weight in lbs Pre/Post Dialysis Refused Weight 218.736564244500 BP Diastolic BP Location Tested BP Systolic [...] Weight in lbs Pre/Post Dialysis Refused Weight 195.865466601165 BP Diastolic BP Location Tested BP Systolic [...] Post Complications Tubal Sterilization Discharge Date Comments Sponta neous 39.4 false Discharge Information Feeding Method Contraceptive Method Maternal HG B and HCT Levels Combination
--- OUTSIDE RECORDS SUMMARY | 2025-01-29 21:29 | XMS_ITS | Continuity of Care Document ---
Author Organization [facility] Address [address] [place] [address] Care Team Providers Care Dinkey Mechanic Name Role Phone LEO ZAMARRIPA Primary Care Provider [phone] Assessment Encounter Date Assessment Date Assessment LastModified by Organization Details LastModified Time 11/20/2024 11/20/2024 Patient is ___weeks . Discussed plan. [email or web address] Not available 11/20/2024 15:14:07 Plan of Treatment [...] urine Amphetamines : negati ve Not Available [facility] [address], [place], [address], 06/03/2024 17:47:42 06/04/19 25 06/03/2024 drug scree n, urine Cannabinoids : negati ve Not Available [facility] [address], [place], [address], 06/03/2024 17:47:42 06/04/19 25 06/03/2024 drug scree n, urine Cocaine: negati ve Not Available [facility] [address], [place], [address], 06/03/2024 17:47:42 06/04/19 25 06/03/2024 drug scree n, urine Opiates: negati ve Not Available [facility] [address], [place], [address], 06/03/2024 17:47:42 06/04/19 25 06/03/2024 drug scree n, urine Phenocyclidi ne: negati ve Not Available [facility] [address], [place], [address], 06/03/2024 17:47:42 06/04/19 25 06/03/2024 drug scree n, urine Barbiturates : negati ve Not Available [facility] [address], [place], [address], 06/03/2024 17:47:42 06/04/19 25 06/03/2024 drug scree n, urine Benzodiazepi romina: negati ve Not Available [facility] [address], [place], [address], 06/03/2024 17:47:42 06/04/19 25 06/03/2024 drug scree n, urine Ethanol: negati ve Not Available [facility] [address], [place], [address], 06/03/2024 17:47:42 06/04/19 25 06/03/2024 drug scree n, urine Hallucinogen s: negati ve Not Available [facility] [address], [place], [address], 06/03/2024 17:47:42 06/04/19 25 06/03/2024 drug scree n, urine Inhalants: negati ve Not Available [facility] [address], [place], [address], 06/03/2024 17:47:42 06/04/19 25 06/03/2024 drug scree n, urine Anabolic Steroids: negati ve Not Available [facility] [address], [place], [address], 06/03/2024 17:47:42 09/22/19 25 09/21/2024 HEMAT OCRIT (HCT) HCT 32.3 % (based on docume nted legal sex) 34.0-4 5.0 low Not Available [facility] (Lab) [address], [place], [address], 09/22/2024 12:01:19 09/22/19 25 09/21/2024 HEMOG LOBIN (HGB) HGB 10.4 g/dL (based on docume nted legal sex) 11.6-1 5.4 low Not Available [facility] (Lab) [address], [place], [address], 09/22/2024 12:01:20 09/22/19 25 09/21/2024 GTT - GESTA JULIUS L GARFIELD Beltrán, ACOG OB glucose, 1 hour screen 146 mg/dL 70-135 high Not Available [facility] (Lab) [address] [place], [address], 09/22/2024 12:01:20 09/22/19 25 09/21/2024 HIV 1/2 ANTIG EN/AN TIBOD Y, REFLE X CONFI RMATI ON HIV antigen/anti body Nonrea ctive nonrea ctive HIV-1 antig en and HIV-1 /HIV- 2 antib odies were not detec greta. No labor atory evide nce of HIV infec tion. Not Available [facility] (Lab) [address], [place], [address], 09/22/2024 12:01:21 09/22/19 25 09/21/2024 RPR SCREE N, REFLE X TITER /CONF IRMAT ION RPR qualitative Nonrea ctive nonrea ctive Not Available [facility] (Lab) [address] [place], [address], 09/22/2024 12:01:21 09/29/19 25 09/28/2024 GTT - GESTA JULIUS L, 3 HOUR, ACOG glucose, fasting acog 84 mg/dL 70-94 Not Available [facility] (Lab) [address] [place], [address], 09/29/2024 03:44:44 09/29/19 25 09/28/2024 GTT - GESTA JULIUS L, 3 HOUR, ACOG glucose, 1 hour acog 181 mg/dL 70-179 high Not Available [facility] (Lab) [address] [place], [address], 09/29/2024 03:44:44 09/29/19 25 09/28/2024 GTT - GESTA JULIUS L, 3 HOUR, ACOG glucose, 2 hour acog 150 mg/dL 70-154 Not Available [facility] (Lab) [address] [place], [address], 09/29/2024 03:44:44 09/29/19 25 09/28/2024 GTT - GESTA JULIUS L, 3 HOUR, ACOG glucose, 3 hour acog 127 mg/dL 70-139 Not Available [facility] (Lab) [address] [place], [address], 09/29/2024 03:44:44 11/05/19 25 11/04/2024 CULTU RE: GROUP B STREP SCREE N, REFLE X SUSCE PTIBI LITY result report SEE RESULT S BELOW abnormal Test: Cultu re: Group B Strep , Refle x Susce ptibi lity ([facility]/ [facility] ) Speci men Sourc e: Vagin a/Rec angelique Speci men Type: Vagin al/Re ctal Speci men Date: 8/20/ 2025 1702 Resul t Date: 2024 1453 Resul t Statu s: Final resul t Abnor mal: Yes Resul jonathan Lab: [facility] [address] [facility] [address] Tel: CULTU RE ----- ----- ----- --- [...] beatris for these drugs . Not Available [facility] (Lab) [address], [place], [address], 11/08/2024 15:56:27 06/03/19 25 06/02/2024 US, obste tric, nucha l trans lucen cy No observ ation record ed. [email or web address] [facility] [address] [address], [place], [address], 06/02/2024 22:49:25 06/03/19 25 06/02/2024 US, obste tric, nucha l trans lucen cy No observ ation record ed. [email or web address] [facility] [address], [place], [address], 06/02/2024 18:53:48 07/21/19 25 07/20/2024 US, obste tric, 2nd or 3rd trime ster No observ ation record ed. [email or web address] [facility] [address], [place], [address], 07/20/2024 18:43:23 07/21/19 25 07/20/2024 US, obste tric, follo w-up No observ ation record ed. [email or web address] [address], [place], [address], 08/06/2024 14:42:59 10/20/19 25 10/19/2024 US, obste tric, follo w-up No observ ation record ed. [email or web address] [facility] [address], [place], [address], 10/19/2024 18:42:11 10/20/19 25 10/19/2024 US, obste tric, follo w-up No observ ation record ed. Vivi [address], [place], [address], 10/21/2024 16:49:04 11/03/19 25 11/02/2024 US, obste tric, limit ed No observ ation record ed. [email or web address] [facility] [address], [place], [address], 11/02/2024 18:27:07 11/03/19 25 11/02/2024 US, obste tric, limit ed No observ ation record ed. LESTER [facility] [address], [place], [address], 11/02/2024 17:21:55 Result Notes None recorded. Problems Name Problem SNOMED Code Status Onset Date Resolution Date Notes Provider Name and Address Organization Details Recorded Time Complete Completed 201209/12/2020 Legally unspecif ied , complete , without mention of complica tion;Rec orded Elsewher e: No Locat ion: [facility] S ource: [facility] june: N Practi ce ID: 0001 Miko lable Time: 06:30:00 PM Gracy Mireles [place], [place] - [facility] 16:59:22 Primigra james [id number] Completed 201209/12/2020 Supervis ion of normal first pregnanc y;Record ed Elsewher e: No [facility] S ource: [facility] june: N Donnellti ce ID: 0001 Miko lable Time: 05:15:00 PM Gracy Mireles [facility] 17:00:04 Pregnanc y test positive [id number] Completed 201209/12/2020 Pregnanc y examinat ion or test, positive result;R ecorded Elsewher e: No Locat ion: [facility] S ource: [facility] june: N Donnellti ce ID: 0001 Miko lable Time: 05:15:00 PM Gracy Mireles [facility] 17:00:00 Ultrason ography Completed 201209/12/2020 Antenata l screenin g for malforma tion using ultrason ics;Rich rded Elsewher e: No Locat ion: [facility] S ource: [facility] june: N Donnellti ce ID: 0001 Miko lable Time: 04:30:00 PM Gracy Mireles [facility] 17:00:21 Antenata l screenin g Completed 201209/12/2020 Antenata l screenin g for malforma tion using ultrason ics;Rich rded Elsewher e: No Locat ion: [facility] S ource: [facility] june: N Donnellti ce ID: 0001 Miko lable Time: 04:30:00 PM Gracy Mireles [facility] 16:59:17 Congenit al malforma tion [id number] Completed 201209/12/2020 Antenata l screenin g for malforma tion using ultrason ics;Rich rded Elsewher e: No Locat ion: [facility] S ource: [facility] june: N Donnellti ce ID: 0001 Miko lable Time: 04:30:00 PM Gracy Mireles [facility] 16:59:24 Trauma to perineum and/or vulva during delivery [id number] Completed 201309/12/2020 Unspecif ied trauma to perineum and vulva, unspecif ied as to episode of care in pregnanc y;Record ed Elsewher e: No Locat ion: Pedro Luis abbott [facility] S ource: [facility] june: N Practi ce ID: 0001 Miko lable Time: 11:30:00 AM Gracy Mireles [facility], [facility] 17:00:18 Routine antenata l care Completed 201309/12/2020 Supervis ion of other normal pregnanc y;Practi ce ID: 0001 Gracy Mireles [facility] 17:00:05 Excessiv e growth affectin g manageme nt of mother [id number] Completed 201309/12/2020 Excessiv e growth, affectin g manageme nt of mother, antepart um;Recor ded Elsewher e: No [facility] june: N Practi ce ID: 0001 Miko lable Time: 04:00:00 PM Gracy Mireles [facility] 16:59:39 Delivery normal [id number] Completed 201309/12/2020 Normal delivery ;Practic e ID: 0001 Gracy Mireles [facility] 16:59:37 Single live from singleto n pregnanc y [id number] Completed 201309/12/2020 Mother with single liveborn ;Practic e ID: 0001 Gracy Mireles [facility] 17:00:10 Pregnanc y test negative [id number] Completed 201309/12/2020 Pregnanc y examinat ion or test, negative result;R ecorded Elsewher e: No [facility] june: N Practi ce ID: 0001 Miko lable Time: 10:30:00 AM Gracy Mireles [facility], [facility] 16:59:59 Postpart um care Completed 201309/12/2020 Post Followup ;Recorde d Elsewher e: No Locat ion: Pedro Luis milena [facility] S ource: [facility] june: N Practi ce ID: 0001 Miko lable Time: 10:30:00 AM Gracy Mireles [facility], [facility] 16:59:55 Menstrua tion finding Completed 201309/12/2020 Menometr orrhagia ;Recorde d Elsewher e: No [facility]: [facility] june: N Donnellti ce ID: 0001 Miko lable Time: 09:00:00 AM Gracy Mireles [facility], [facility] 16:59:49 Postoper ative follow-u p visit Completed 201309/12/2020 Follow-u p examinat ion, followin g unspecif ied surgery; Recorded Elsewher e: No Locat ion: [facility]ce: [facility] june: N Donnellti ce ID: 0001 Miko lable Time: 04:30:00 PM Gracy Mireles [facility] 16:59:54 Amenorrh ea [id number] Completed 201309/12/2020 Amenorrh ea;Recor ded Elsewher e: No Locat ion: [facility] [facility] S ource: [facility] june: N Practi ce ID: 0001 Miko lable Time: 04:00:00 PM Gracy Mireles [facility] 16:59:15 Vaginiti s and vulvovag initis Completed 201309/12/2020 Vaginiti s and vulvovag initis, unspecif ied;Rich rded Elsewher e: No Locat ion: [facility] S our[facility]: [facility] june: N Practi ce ID: 0001 Miko lable Time: 04:00:00 PM Gracy Mireles [facility], [facility] 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 17:00:15 Overweig ht [id number] Completed 201309/12/2020 Overweig ht;Recor ded Elsewher e: No Locat ion: [facility] our[facility]: [facility] june: N Donnellti ce ID: 0001 Miko lable Time: 04:00:00 PM Gracy Mireles [facility], [facility] 16:59:52 Speciali zed medical examinat ion Completed 201409/12/2020 Other specifie d chlamydi al diseases ;Recorde d Elsewher e: No Locat ion: [facility]: [facility] june: N Practi ce ID: 0001 Miko lable Time: 05:15:00 PM Gracy Mireles [facility] 17:00:16 Venereal disease screenin g Completed 201409/12/2020 Screenin g examinat ion for venereal disease; Recorded Elsewher e: No Locat ion: [facility] S our[facility]: [facility] june: N Practi ce ID: 0001 Miko lable Time: 05:15:00 PM Gracy Mireles [facility], [facility] 17:00:25 Leukorrh ea [id number] Completed 201409/12/2020 Leukorrh ea, not specifie d as infectiv e;Record ed Elsewher e: No Locat ion: [facility] S ource: [facility] june: N Practi ce ID: 0001 Miko lable Time: 05:15:00 PM Gracy Mireles [facility] 16:59:45 Acute vaginiti s [id number] Completed 201509/12/2020 Acute vaginiti s;Record ed Elsewher e: No Locat ion: [facility] S ource: [facility] june: N Practi ce ID: 0001 Miko lable Time: 02:30:00 PM Gracy [facility] 16:59:14 Hemorrho ids [id number] Completed 201509/12/2020 Hemorrho id;Recor ded Elsewher e: No Locat ion: [facility] S [facility]: [facility] june: N Practi ce ID: 0001 Miko lable Time: 02:30:00 PM Gracy [facility] 16:59:[address] Concept Completed 201509/12/2020 Encntr for general adult medical exam w/o abnormal findings ;Recorde d Elsewher e: No Locat ion: [facility]: [facility] june: N Practi ce ID: 0001 Miko lable Time: 10:30:00 AM Gracy Mireles [facility] 17:00:12 Pregnanc y detectio n examinat ion Completed 201609/12/2020 Encounte r for pregnanc y test, result positive ;Recorde d Elsewher e: No Locat ion: [facility]: [facility] june: N Practi ce ID: 0001 Miko lable Time: 09:45:00 AM Gracy [facility] 16:59:57 Secondar y amenorrh ea [id number] Completed 201609/12/2020 Secondar y amenorrh ea;Pract ice ID: 0001 Gracy dang [facility] 17:00:08 Normal pregnanc y in kaitlina james [id number] 4106 Completed 201609/12/2020 Encounte r for supervis ion of other normal pregnanc y, 2nd trimeste r;Record ed Elsewher e: No Locat ion: Pedro Luis abbott [facility] S ource: [facility] june: N Practi ce ID: 0001 Miko lable Time: 08:30:00 AM Gracy dang [facility] 16:59:50 Prematur e rupture of membrane s [id number] Completed 201609/12/2020 Full-ter m epi ROM, unsp time betw rupture and onset labor;Pr actice ID: 0001 Gracy dang [facility] 17:00:02 Lacerati on of female perineum Completed 201609/12/2020 First degree perineal lacerati on during delivery ;Practic e ID: 0001 Gracy dang [facility] 16:59:44 Gestatio n period, 39 weeks [id number] Completed 201609/12/2020 39 weeks gestatio n of pregnanc y;Practi ce ID: 0001 Gracy dang [facility] 16:59:40 Lochia finding Completed 201609/12/2020 Encounte r for routine postpart um follow-u p;Record ed Elsewher e: No Locat ion: Pedro Luis abbott [facility] S ource: [facility] june: N Practi ce ID: 0001 Miko lable Time: 09:45:00 AM Gracy dang [facility] 16:59:47 Uses combined oral contrace ption [id number] Completed 201709/12/2020 Encounte r for initial prescrip tion of contrace ptive pills;Re corded Elsewher e: No [facility] june: N Ken ce ID: 0001 Miko lable Time: 10:15:00 AM Gracy Mireles [facility] 1 16:59:20 Body mass index 25-29 - overweig ht [id number] Completed 201709/12/2020 Body mass index (BMI) 28.0-28. 9, adult;Re corded Elsewher e: No Locat ion: Pedro Luis abbott [facility] S ource: [facility] june: N Donnellti ce ID: 0001 Miko lable Time: 10:15:00 AM Gracy Mireles [facility] 16:59:19 Screenin g for malignan t neoplasm of cervix Completed 201709/12/2020 Screenin g for malignan t neoplasm s of the cervix;R ecorded Elsewher e: No Locat ion: Pedro Luis [facility] S ource: [facility] june: N Donnellti ce ID: 0001 Miko lable Time: 10:15:00 AM Gracy Mireles [facility] 1 17:00:[address] Concept Completed 201809/12/2020 Encntr for sweet potato disintegrator exam (general ) (routine ) w/o abn findings ;Recorde d Elsewher e: No Locat ion: [facility] S ource: [facility] june: N Donnellti ce ID: 0001 Miko lable Time: 11:15:00 AM Gracy Mireles [facility] 17:00:13 Pregnanc y [id number] Completed 202412/29/2024 Christina Osorio [facility] 5 10:32:08 Multigra james of advanced maternal age [id number] Completed 2024 Kim dang [facility] 14:42:40 Problem Notes None recorded. Procedures Surgical History Date Name Laterality Status Provider Name and Address Organization Details Recorded Time 09/13/19 21 Date of Last Pap Smear completed Norma Freeman [facility] 12/03/2023 17:17:36 03/18/19 14 Hysteroscopy completed Gracy Mireles [facility] 09/12/2020 17:03:41 Imaging Results None recorded. [...] the affected area(s) 12/16 completed Prescrib terri Peoples e: Yes Loca tion: [facility] abbott [facility] Jamie odify By: ary marin DateTime [...] Prescrib ed Elsewher e: Yes [facility] odify By: [email or web address] Abbott ncounter DateTime : 09/01/19 14 10:30:00 AM Not Available Not Available Not Available prednison e 50 mg tablet TAKE 1 TABLET BY MOUTH DAILY 05/06 completed Not Available Not Available Not Available Vitamin D2 1,250 mcg (50,000 unit) capsule take 1 capsule (40542LC ITS) by oral route every week 08/31 completed Prescrib ed Elsewher e: No Locat ion: [facility] odify By: [email or web address] trick En counter DateTime : 01/29/20 13 11:56:09 AM Not Available Not Available Not Available norethind lisa (contrace ptive) 0.35 mg tablet take 1 tablet by oral route every day 12/16 completed Prescrib ed Elsewher e: No Locat ion: [facility] odify By: [email or web address] Abbott ncounter DateTime : 09/01/19 14 10:30:00 AM Not Available Not Available Not Available sertralin e 20 mg/mL oral concentra te 04/18 completed Prescrib ed Elsewher e: Yes Loca tion: [facility] odify By: [email or web address] Encount er DateTime : 07/06/19 16 02:30:00 [...] e: No Locat ion: [facility] ab[facility] odify By: justina [email or web address] DateTime : 10/23/19 14 09:00:00 AM Not Available Not Available Not Available erythromy michel with ethanol 2 % topical gel apply by topical route 2 times every day a thin layer to the affected area(s) in the morning and evening 01/27 completed Prescrib ed Elsewher e: No Locat ion: [facility] ab[facility] odify By: parag Abbott ncounter DateTime : 01/29/20 13 11:56:09 AM Not Available Not Available Not Available Duac 1.2 % (1 % base)-5 % topical gel apply by topical route 2 times every day to the affected area(s) in the morning and evening 12/16 completed Prescrib ed Elsewher e: Yes Loca tion: [facility] odify By: ary marin DateTime : [...] e: No Locat ion: [facility] abbott [facility] odify By: alonso [email or web address] DateTime : 12/17/19 13 05:15:00 PM Not Available Not Available Not Available 28 mg iron-800 mcg tablet 07/19 completed Prescrib ed Elsewher e: Yes Loca tion: [facility] odify By: napoleon gann DateTime : 04/18/19 19 11:15:00 AM Not Available Not Available Not Available One Daily 27 mg iron-800 mcg tablet take 1 tablet by oral route every day 06/30 completed Prescrib ed Elsewher e: Yes Loca tion: Pedro [facility] abbott [facility] odify By: parag [email or web address] DateTime : 01/28/20 14 04:00:00 PM Not Available Not Available Not Available Anusol-HC 2.5 % topical cream with perineal applicato r apply by topical route 2 times every day to the affected area(s) 08/01 completed Prescrib terri Peoples e: No Locat ion: Pedro Luis milena [facility] M odify By: jvy Yan schaefer DateTime : 07/06/19 16 02:30:00 PM Not Available Not Available Not Available Vitals Date Recorded Body height Body mass index (BMI) Body weight Systolic And Diastolic Provider Name and Address Organization Details Last Updated DateTime 11/20/2024 163.2 cm 37.8 kg/m2 215584.51 g 134/85 mm[Hg] Cinthia Girardney [facility] 11/20/2024 15:15:30 Social History Question Answer Notes LastModified by Organizat ion Details LastModified Time Do You Have An Advance Directive? No Information n ot available 11/04/2024 How Many Years Have You Consumed Alcohol? 4 [email or web address] Information not available 11/04/2024 Are You Blind Or Do You Have Difficulty Seeing? No Information not available 11/04/2024 What Is Your Level Of Caffeine Consumption? Moderate [email or web address] Information not available 11/04/2024 How Much Tobacco Do You Chew? None [email or web address] Information not available 11/04/2024 In The 14 Days Before Symptom Onset, Have You Had Close Contact With A Laboratory-confirme d COVID-19 While That Case Was Ill? No [email or web address] Information n ot available 11/04/2024 In The 14 Days Before Symptom Onset, Have You Had Close Contact With A Person Who Is Under Investigation For COVID-19 While That Person Was Ill? No [email or web address] Information not available 11/04/2024 Have You Been To An Area Known To Be High Risk For COVID-19? No [email or web address] Information not available 11/04/2024 Are You Deaf Or Do You Have Serious Difficulty Hearing? No [email or web address] Information not available 11/04/2024 What Type Of Diet Are You Following? REGULAR [email or web address] Information n ot available 11/04/2024 What Is The Highest Grade Or Level Of School You Have Completed Or The Highest Degree You Have Received? PD82803-4 [email or web address] Information not available 11/04/2024 Are There Any Guns Present In Your Home? No [email or web address] Information not available 11/04/2024 Do You Use Protection During Sex? No [email or web address] Information not available 11/04/2024 Do You Use Your Seat Belt Or Car Seat Routinely? Yes [email or web address] Information not available 11/04/2024 Do You Have Smoke And Carbon Monoxide Detectors In Your Home? Yes [email or web address] Information not available 11/04/2024 How Much Tobacco Do You Smoke? No [email or web address] Information not available 11/04/2024 Do You Use Sunscreen Routinely? Yes [email or web address] Information not available 11/04/2024 Have You Used IV Drugs? No [email or web address] Information not available 11/04/2024 Do You Have Difficulty Walking Or Climbing Stairs? No Information not available 05/30/2022 Sex: Unknown Functional Status Question Answer Note LastModified by Organizat ion Details LastModified Time Do you use any illicit or recreational drugs? No [email or web address] Information not available 11/04/2024 What is your level of alcohol consumption? Occasional Information not available 11/04/2024 Are you able to walk independently without assistance or assistive devices? YESWOREST [email or web address] Information not available 11/04/2024 Are you able to care for yourself independently? 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 No Information not available 05/30/2022 What is your exercise level? Occasional [email or web address] Information not available 11/04/2024 Mental Status Question Answer Note LastModified by Organization D etails LastModified Time Do you feel stressed (tense, restless, nervous, or anxious, or unable to sleep at night)? [id number] Information not available 11/04/2024 Family History Relationship Description Onset Age of this Age Resolved Age Notes LastModified by Organization Details LastModified Time Maternal Grandmother Malignant neoplasm of stomach [email or web address] Not available 2024 10:21:44 Father Atrial fibrillation Not available 10:21:44 Father Cerebrovascu lar accident [email or web address] Not available 16:23:20 Father Hypertensive disorder [email or web address] Not available 2024 16:23:20 Sister Malignant neoplasm of breast [email or web address] Not available 05/16 13:00:13 Mother Asthma [email or web address] Not available 11/04/2024 16:23:20 Maternal Grandfather Malignant neoplasm of colon [email or web address] Not available 2024 16:23:20 Paternal Grandmother Malignant neoplasm of breast [email or web address] Not available 2024 16:23:20 Medical History Condition [...] ICD10 Code Diagnosis IMO Codes Diagnosis Note [id number] VALERIO EID MD [facility] [address],[place] [address] 11/02/2024 16:24:55 11/02/2024 16:55:46 Breech presentation [id number] O32.1XX0 Z3A.35 [id number] AVLERIO EID MD [facility] [address],[place] [address] 11/04/2024 16:14:38 11/04/2024 16:52:44 Multigravida of advanced maternal age 152156268 O09.522 [id number] Gestation period, 35 weeks 66094676 Z3A.35 9959801 screening 2437 86218 Z36.85 [id number] Naeem Sebastian MD [facility] [address],[place] [address] 11/12/2024 16:53:33 11/13/2024 09:18:51 care status [id number] Z34.83 [id number] VALERIO EID MD [facility] [address],[place] [address] 11/20/2024 14:46:58 11/20/2024 15:30:11 Multigravida of advanced maternal age 536367803 O09.523 [id number] Gestation period, 37 weeks 51930590 Z3A.37 [id number] Health Concerns Section Related Observation LastModified by Organization Detai ls LastModified Time None Recorded Concern Status LastModified by Organization Details LastModified Time None Recorded Payers Encounter Date Sequence Insurance Name Policy Number Policy Haney Covered Member ID Haney Member ID Guarantor Name 11/20/2024 2 [employer] [id number] Graham Kinney [id number] Violetta Kinney 11/20/2024 1 [facility] [id number] Violetta Kinney [id number] Violetta Kinney Notes Date Note Type Note Provider Name and Address Organization Details Recorded Time 11/20/2024 text/html Generic HPI TemplateReported by Patient VALERIO EID MD [address], [place], [address], [place] [facility] 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 Status 06/03/19 25 1 A Positive 203 CLOSED Fetus Data First Name Last Name Admitted to NICU Weight (g) Sex Living Outcome Pediatric Complications Fetus ID Race Codes Race Delivery Type Tonja dominique false 3912.23 1 M true Full Term [id number] Vaginal Delivery Problems Problem Notes Problem Name Start Date End Date Resolution Snomed Code Not e Multigravida of advanced maternal age 0508/06/2024 [id number] Rogelio Calculation Initial Rogelio Date Initial Exam [...] Sound Latest Days Gestation 07/21/19 25 20 [email or web address] 06/02/2024 12/06/19 25 4 Pre- Flowsheet Flowsheet [...] Weight in lbs Pre/Post Dialysis Refused Weight 204.341735686768 BP Diastolic BP Location Tested BP Systolic BP Type 75 L arm 123 sitting Fetus Heart Rate Present A 158 Fetus Movement A No Comments Patient presents to [facility]. Hx of 2 uncomplicated SVDs. otherwise uncomplicated. No nausea or cramping. NT/NB wnl today, LR male NIPT! New OB labs also wnl. RTC 4 weeks for routine care. Flowsheet Date 07/01/2024 Sarmiento Score Blood Edema Fundus Height Fundus Units Glucose Ketones Leukocytes Nitrite Labor Signs Protein Cervic Dilation Cervic Effacement Cervic Station Type Weight in lbs Pre/Post Dialysis Refused Weight 207.972595431772 BP Diastolic BP Location Tested BP Systolic [...] Weight in lbs Pre/Post Dialysis Refused Weight 209.004619326908 BP Diastolic BP Location Tested BP Systolic [...] Weight in lbs Pre/Post Dialysis Refused Weight 210.921152080103 BP Diastolic BP Location Tested BP Systolic [...] Weight in lbs Pre/Post Dialysis Refused Weight 211.299725789436 BP Diastolic BP Location Tested BP Systolic [...] Type Weight in lbs Pre/Post Dialysis Refused 213.140750999186 BP Diastolic BP Location Tested BP Systolic [...] Type Weight in lbs Pre/Post Dialysis Refused 168.936407197440 BP Diastolic BP Location Tested BP Systolic [...] Weight in lbs Pre/Post Dialysis Refused Weight 221.794687494936 BP Diastolic BP Location Tested BP Systolic [...] Type Weight in lbs Pre/Post Dialysis Refused 220.716242953539 BP Diastolic BP Location Tested BP Systolic [...] Weight in lbs Pre/Post Dialysis Refused Weight 222.7224353282 BP Diastolic BP Location Tested BP Systolic [...] Weight in lbs Pre/Post Dialysis Refused Weight 218.589152340754 BP Diastolic BP Location Tested BP Systolic [...] Weight in lbs Pre/Post Dialysis Refused Weight 195.192828865695 BP Diastolic BP Location Tested BP Systolic [...]
--- OUTSIDE RECORDS SUMMARY | 2025-01-29 21:29 | XMS_ITS | Continuity of Care Document ---
Author Organization [facility] Address [address] [place] [address] Care Team Providers Care Biomedical Field Service Engineer Name Role Phone PETRONAZAKI LEO Primary Care Provider [phone] Assessment No assessment recorded. Plan of Treatment [...] urine Amphetamines : negati ve Not Available [facility] [address], [place], [address], 06/03/2024 17:47:42 06/04/19 25 06/03/2024 drug scree n, urine Cannabinoids : negati ve Not Available [facility] [address], [place], [address], 06/03/2024 17:47:42 06/04/19 25 06/03/2024 drug scree n, urine Cocaine: negati ve Not Available [facility] [address], [place], [address], 06/03/2024 17:47:42 06/04/19 25 06/03/2024 drug scree n, urine Opiates: negati ve Not Available [facility] [address], [place], [address], 06/03/2024 17:47:42 06/04/19 25 06/03/2024 drug scree n, urine Phenocyclidi ne: negati ve Not Available [facility] [address], [place], [address], 06/03/2024 17:47:42 06/04/19 25 06/03/2024 drug scree n, urine Barbiturates : negati ve Not Available [facility] [address], [place], [address], 06/03/2024 17:47:42 06/04/19 25 06/03/2024 drug scree n, urine Benzodiazepi romina: negati ve Not Available [facility] [address], [place], [address], 06/03/2024 17:47:42 06/04/19 25 06/03/2024 drug scree n, urine Ethanol: negati ve Not Available [facility] [address], [place], [address], 06/03/2024 17:47:42 06/04/19 25 06/03/2024 drug scree n, urine Hallucinogen s: negati ve Not Available [facility] [address], [place], [address], 06/03/2024 17:47:42 06/04/19 25 06/03/2024 drug scree n, urine Inhalants: negati ve Not Available [facility] [address], [place], [address], 06/03/2024 17:47:42 06/04/19 25 06/03/2024 drug scree n, urine Anabolic Steroids: negati ve Not Available [facility] [address], [place], [address], 06/03/2024 17:47:42 09/22/1909/21/2024 HEMAT OCRIT (HCT) HCT 32.3 % (based on docume nted legal sex) 34.0-4 5.0 low Not Available [facility] (Lab) [address], [place], [address], 09/22/2024 12:01:19 09/22/19 25 09/21/2024 HEMOG LOBIN (HGB) HGB 10.4 g/dL (based on docume nted legal sex) 11.6-1 5.4 low Not Available [facility] (Lab) [address], [place], [address], 09/22/2024 12:01:20 09/22/19 25 09/21/2024 GTT - GESTA JULIUS L GARFIELD Beltrán, ACOG OB glucose, 1 hour screen 146 mg/dL 70-135 high Not Available [facility] (Lab) [address] [place], [address], 09/22/2024 12:01:20 09/22/19 25 09/21/2024 HIV 1/2 ANTIG EN/AN TIBOD Y, REFLE X CONFI RMATI ON HIV antigen/anti body Nonrea ctive nonrea ctive HIV-1 antig en and HIV-1 /HIV- 2 antib odies were not detec greta. No labor atory evide nce of HIV infec tion. Not Available [facility] (Lab) [address], [place], [address], 09/22/2024 12:01:21 09/22/19 25 09/21/2024 RPR SCREE N, REFLE X TITER /CONF IRMAT ION RPR qualitative Nonrea ctive nonrea ctive Not Available [facility] (Lab) [address] [place], [address], 09/22/2024 12:01:21 09/29/1909/28/2024 GTT - GESTA JULIUS L, 3 HOUR, ACOG glucose, fasting acog 84 mg/dL 70-94 Not Available [facility] (Lab) [address] [place], [address], 09/29/2024 03:44:44 09/29/19 25 09/28/2024 GTT - GESTA JULIUS L, 3 HOUR, ACOG glucose, 1 hour acog 181 mg/dL 70-179 high Not Available [facility] (Lab) [address] [place], [address], 09/29/2024 03:44:44 09/29/19 25 09/28/2024 GTT - GESTA JULIUS L, 3 HOUR, ACOG glucose, 2 hour acog 150 mg/dL 70-154 Not Available [facility] (Lab) [address] [place], [address], 09/29/2024 03:44:44 09/29/19 25 09/28/2024 GTT - GESTA JULIUS L, 3 HOUR, ACOG glucose, 3 hour acog 127 mg/dL 70-139 Not Available [facility] (Lab) [address] [place], [address], 09/29/2024 03:44:44 11/05/19 25 11/04/2024 CULTU RE: GROUP B STREP SCREE N, REFLE X SUSCE PTIBI LITY result report SEE RESULT S BELOW abnormal Test: Cultu re: Group B Strep , Refle x Susce ptibi lity ([facility] ) Speci men Sourc e: Vagin a/Rec angelique Speci men Type: Vagin al/Re ctal Speci men Date: 2024 1702 Resul t Date: 2024 1453 Resul t Statu s: Final resul t Abnor mal: Yes Resul kasiag Lab: [facility] [address] [facility] [address] Tel: CULTU RE ----- ----- ----- --- [...] beatris for these drugs . Not Available [facility] (Lab) [address], [place], [address], 11/08/2024 15:56:27 06/03/19 25 06/02/2024 US, obste tric, nucha l trans lucen cy No observ ation record ed. [email or web address] [address], [place], [address], 06/02/2024 22:49:25 06/03/19 25 06/02/2024 US, obste tric, nucha l trans lucen cy No observ ation record ed. [email or web address] [facility] [address], [place], [address], 06/02/2024 18:53:48 07/21/19 25 07/20/2024 US, obste tric, 2nd or 3rd trime ster No observ ation record ed. [email or web address] [facility] [address], [place], [address], 07/20/2024 18:43:23 07/21/19 25 07/20/2024 US, obste tric, follo w-up No observ ation record ed. [email or web address] [facility] [address], [place], [address], 08/06/2024 14:42:59 10/20/19 25 10/19/2024 US, obste tric, follo w-up No observ ation record ed. [email or web address] [facility] [address], [place], [address], 10/19/2024 18:42:11 10/20/19 25 10/19/2024 US, obste tric, follo w-up No observ ation record ed. [email or web address] [facility] [address], [place], [address], 10/21/2024 16:49:04 11/03/19 25 11/02/2024 US, obste tric, limit ed No observ ation record ed. [email or web address] [facility] [address], [place], [address], 11/02/2024 18:27:07 11/03/19 25 11/02/2024 , obste tric, limit ed No observ ation record ed. LESTER Vivi [address], [place], [address], 11/02/2024 17:21:55 Result Notes None recorded. Problems Name Problem SNOMED Code Status Onset Date Resolution Date Notes Provider Name and Address Organization Details Recorded Time Complete Completed 201209/12/2020 Legally unspecif ied , complete , without mention of complica tion;Rec orded Elsewher e: No Locat ion: [facility] S ource: EHR Main Line Station Engineer june: N Ken ce ID: 0001 Miko lable Time: 06:30:00 PM Gracy Mireles [facility] 16:59:22 Primigra james [id number] Completed 201209/12/2020 Supervis ion of normal first pregnanc y;Record ed Elsewher e: No Locat ion: [facility] S ource: EHR Main Line Station Engineer june: N Ken ce ID: 0001 Miko lable Time: 05:15:00 PM Gracy Mireles [facility] 1 17:00:04 Pregnanc y test positive [id number] Completed 201209/12/2020 Pregnanc y examinat ion or test, positive result;R ecorded Elsewher e: No Locat ion: [facility] S ource: EHR Main Line Station Engineer june: N Donnellti ce ID: 0001 Miko lable Time: 05:15:00 PM Gracy Mireles [facility] 1 17:00:00 Ultrason ography Completed 201209/12/2020 Antenata l screenin g for malforma tion using ultrason ics;Rich rded Elsewher e: No Locat ion: [facility] S ource: EHR Main Line Station Engineer june: N Donnellti ce ID: 0001 Miko lable Time: 04:30:00 PM Gracy Mireles [facility] 1 17:00:21 Antenata l screenin g Completed 201209/12/2020 Antenata l screenin g for malforma tion using ultrason ics;Rich rded Elsewher e: No Locat ion: [facility] S ource: EHR Main Line Station Engineer june: N Donnellti ce ID: 0001 Miko lable Time: 04:30:00 PM Gracy Mireles [facility] 1 16:59:17 Congenit al malforma tion [id number] Completed 201209/12/2020 Antenata l screenin g for malforma tion using ultrason ics;Rich rded Elsewher e: No Locat ion: [facility] S ource: EHR Main Line Station Engineer june: N Donnellti ce ID: 0001 Miko lable Time: 04:30:00 PM Gracy Mireles [facility] 16:59:24 Trauma to perineum and/or vulva during delivery [id number] Completed 201309/12/2020 Unspecif ied trauma to perineum and vulva, [facility]specif [facility];Record ed Elsewher e: No Locat ion: [facility] S ource: EHR Main Line Station Engineer june: N Donnellti ce ID: 0001 Miko lable Time: 11:30:00 AM Gracy dang, [facility] 17:00:18 Routine antenata l care Completed 201309/12/2020 Supervis ion of other normal pregnanc y;Practi ce ID: 0001 Gracy dang, [facility] 17:00:05 Excessiv e growth affectin g manageme nt of mother [id number] Completed 201309/12/2020 Excessiv e growth, affectin g manageme nt of mother, antepart um;Recor ded Elsewher e: No Locat ion: [facility] S ource: EHR Main Line Station Engineer june: N Donnellti ce ID: 0001 Miko lable Time: 04:00:00 PM Gracy dagn [facility] 16:59:39 Delivery normal [id number] Completed 201309/12/2020 Normal delivery ;Practic e ID: 0001 Gracy dang, [facility] 16:59:37 [facility] [id number] Completed 201309/12/2020 Mother with single liveborn ;Practic e ID: 0001 Gracy Mireles [facility], [facility] 17:00:10 Pregnanc y test negative [id number] Completed 201309/12/2020 Pregnanc y examinat ion or test, negative result;R ecorded Elsewher e: No Locat ion: [facility] S ource: EHR Main Line Station Engineer june: N Practi ce ID: 0001 Miko lable Time: 10:30:00 AM Gracy dang [facility] 16:59:59 Postpart um care Completed 201309/12/2020 Post Followup ;Recorde d Elsewher e: No Locat ion: [facility] milena [facility] S ource: EHR Main Line Station Engineer june: N Practi ce ID: 0001 Miko lable Time: 10:30:00 AM Gracy Mireles [facility] 16:59:55 Menstrua tion finding Completed 201309/12/2020 Menometr orrhagia ;Recorde d Elsewher e: No [facility]: EHR Main Line Station Engineer june: N Practi ce ID: 0001 Miko lable Time: 09:00:00 AM Gracy Mireles [facility] 16:59:49 Postoper ative follow-u p visit Completed 201309/12/2020 Follow-u p examinat ion, followin g unspecif ied surgery; Recorded Elsewher e: No [facility]: E[facility] Main Line Station Engineer june: N Practi ce ID: 0001 Miko lable Time: 04:30:00 PM Gracy Mireles [facility] 16:59:54 Amenorrh ea [id number] Completed 201309/12/2020 Amenorrh ea;Recor ded Elsewher e: No Locat ion: Pedro Luis abbott [facility] S ource: EHR Main Line Station Engineer june: N Practi ce ID: 0001 Miko lable Time: 04:00:00 PM Gracy Mireles [facility] 16:59:15 Vaginiti s and vulvovag initis Completed 201309/12/2020 Vaginiti s and vulvovag initis, unspecif ied;Rich rded Elsewher e: No Locat ion: Pedro Luis [facility] S ource: EHR Main Line Station Engineer june: N Practi ce ID: 0001 Miko lable Time: 04:00:00 PM Gracy Mireles [facility] 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 17:00:15 Overweig ht [id number] Completed 201309/12/2020 Overweig ht;Recor ded Elsewher e: No Locat ion: [facility] S ource: EHR Main Line Station Engineer june: N Practi ce ID: 0001 Miko lable Time: 04:00:00 PM Gracy Mireles [facility] 16:59:52 Speciali zed medical examinat ion Completed 201409/12/2020 Other specifie d chlamydi al diseases ;Recorde d Elsewher e: No Locat ion: [facility]ena [facility] S ource: EHR Main Line Station Engineer june: N Practi ce ID: 0001 Miko lable Time: 05:15:00 PM Gracy Mireles [facility] 17:00:16 Venereal disease screenin g Completed 201409/12/2020 Screenin g examinat ion for venereal disease; Recorded Elsewher e: No Locat ion: [facility]ena [facility] S ource: EHR Main Line Station Engineer june: N Practi ce ID: 0001 Miko lable Time: 05:15:00 PM Gracy Mireles [facility] 17:00:25 Leukorrh ea [id number] Completed 201409/12/2020 Leukorrh ea, not specifie d as infectiv e;Record ed Elsewher e: No Locat ion: [facility] milena [facility] S ource: EHR Main Line Station Engineer june: N Practi ce ID: 0001 Miko lable Time: 05:15:00 PM Gracy Mireles [facility] 16:59:45 Acute vaginiti s [id number] Completed 201509/12/2020 Acute vaginiti s;Record ed Elsewher e: No Locat ion: [facility] S ource: EHR Main Line Station Engineer june: N Practi ce ID: 0001 Miko lable Time: 02:30:00 PM Gracy Mireles [facility] 16:59:14 Hemorrho ids [id number] Completed 201509/12/2020 Hemorrho id;Recor ded Elsewher e: No Locat ion: [facility] S ource: EHR Main Line Station Engineer june: N Practi ce ID: 0001 Miko lable Time: 02:30:00 PM Gracy Mireles [facility] 16:59:[address] Concept Completed 201509/12/2020 Encntr for general adult medical exam w/o abnormal findings ;Recorde d Elsewher e: No Locat ion: [facility] S ource: EHR Main Line Station Engineer june: N Practi ce ID: 0001 Miko lable Time: 10:30:00 AM Gracy Mireles [facility] 17:00:12 Pregnanc y detectio n examinat ion Completed 201609/12/2020 Encounte r for pregnanc y test, result positive ;Recorde d Elsewher e: No Locat ion: [facility] S ource: EHR Main Line Station Engineer june: N Practi ce ID: 0001 Miko lable Time: 09:45:00 AM Gracy Mireles [facility] 16:59:57 Secondar y amenorrh ea [id number] Completed 201609/12/2020 Secondar y amenorrh ea;Pract ice ID: 0001 Gracy Mireles [facility] 06/28/202 1 17:00:08 Normal pregnanc y in kaitlina james [id number] Completed 201609/12/2020 Encounte r for supervis ion of other normal pregnanc y, 2nd trimeste r;Record ed Elsewher e: No [facility]: EHR Main Line Station Engineer june: N Practi ce ID: 0001 Miko lable Time: 08:30:00 AM Gracy Mireles [facility] 16:59:50 Prematur e rupture of membrane s [id number] Completed 201609/12/2020 Full-ter m epi ROM, unsp time betw rupture and onset labor;Pr actice ID: 0001 Gracy Mireles [facility] 17:00:02 Lacerati on of female perineum Completed 201609/12/2020 First degree perineal lacerati on during delivery ;Practic e ID: 0001 Gracy Mireles [facility], [facility] 16:59:44 Gestatio n period, 39 weeks [id number] Completed 201609/12/2020 39 weeks gestatio n of pregnanc y;Practi ce ID: 0001 Gracy Mireles [facility] 16:59:40 Lochia finding Completed 201609/12/2020 Encounte r for routine postpart um follow-u p;Record ed Elsewher e: No Locat ion: [facility] S ource: EHR Main Line Station Engineer june: N Practi ce ID: 0001 Miko lable Time: 09:45:00 AM Gracy Mireles [facility] 16:59:47 Uses combined oral contrace ption [id number] Completed 201709/12/2020 Encounte r for initial prescrip tion of contrace ptive pills;Re corded Elsewher e: No Locat ion: Pedro Luis abbott [facility] S ource: EHR Main Line Station Engineer june: N Ken ce ID: 0001 Miko lable Time: 10:15:00 AM Gracy Mireles [facility] 16:59:20 Body mass index 25-29 - overweig [id number] Completed 201709/12/2020 Body mass index (BMI) 28.0-28. 9, adult;Re corded Elsewher e: No Locat ion: Pedro Luis [facility] S ource: EHR Main Line Station Engineer june: N Ken ce ID: 0001 Miko lable Time: 10:15:00 AM Gracy Mireles [facility] 16:59:19 Screenin g for malignan t neoplasm of cervix Completed 201709/12/2020 Screenin g for malignan t neoplasm s of the cervix;R ecorded Elsewher e: No [facility] N Ken ce ID: 0001 Miko lable Time: 10:15:00 AM Gracy Mireles [facility] 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 17:00:13 Pregnanc y [id number] Completed 202412/29/2024 Christina Osorio [facility] 5 10:32:08 Multigra james of advanced maternal age [id number] Completed 2024 Kim Chilel [facility] 5 14:42:40 Problem Notes None recorded. Procedures Surgical History Date Name Laterality Status Provider Name and Address Organization Details Recorded Time 09/13/19 21 Date of Last Pap Smear completed Norma Fremean [facility] 12/03/2023 17:17:36 03/18/19 14 Hysteroscopy completed Gracy Mireles [facility] 09/12/2020 17:03:41 Imaging Results None recorded. [...] e: Yes Loca tion: Pedro Luis abbott [facility] Jamie odify By: ary marin DateTime : [...] Prescrib ed Elsewher e: Yes Loca tion: [facility] odify By: justina Abbott ncounter DateTime : 09/01/19 14 10:30:00 AM Not Available Not Available Not Available prednison e 50 mg tablet TAKE 1 TABLET BY MOUTH DAILY 05/06 completed Not Available Not Available Not Available Vitamin D2 1,250 mcg (50,000 unit) capsule take 1 capsule (93757HY ITS) by oral route every week 08/31 completed Prescrib ed Elsewher e: No Locat ion: [facility] odify By: [email or web address] trick En counter DateTime : 01/29/20 13 11:56:09 AM Not Available Not Available Not Available norethind lisa (contrace ptive) 0.35 mg tablet take 1 tablet by oral route every day 12/16 completed Prescrib ed Elsewher e: No Locat ion: [facility] odify By: justina baileyunter DateTime : 09/01/19 14 10:30:00 AM Not Available Not Available Not Available sertralin e 20 mg/mL oral concentra te 04/18 completed Prescrib ed Elsewher e: Yes Loca tion: [facility] odify By: Encount er DateTime : 07/06/19 16 02:30:00 [...] Prescrib ed Elsewher e: No Locat ion: [facility] odify By: justina Abbott ncounter DateTime : 10/23/19 14 09:00:00 AM Not Available Not Available Not Available erythromy michel with ethanol 2 % topical gel apply by topical route 2 times every day a thin layer to the affected area(s) in the morning and evening 01/27 completed Prescrib ed Elsewher e: No Locat ion: Pedro Luis abbott [facility] odify By: parag Abbott [email or web address] DateTime : 01/29/20 13 11:56:09 AM Not Available Not Available Not Available Duac 1.2 % (1 % base)-5 % topical gel apply by topical route 2 times every day to the affected area(s) in the morning and evening 12/16 completed Prescrib ed Elsewher e: Yes Loca tion: Pedro Luis abbott [facility] odify By: ary marin DateTime : [...] e: No Locat ion: Pedro Luis abbott [facility] odify By: alonso [email or web address] DateTime : 12/17/19 13 05:15:00 PM Not Available Not Available Not Available 28 mg iron-800 mcg tablet 07/19 completed Prescrib ed Elsewher e: Yes Loca tion: Pedro Luis abbott [facility] odify By: Encount er DateTime : 04/18/19 19 11:15:00 AM Not Available Not Available Not Available One Daily 27 mg iron-800 mcg tablet take 1 tablet by oral route every day 06/30 completed Prescrib ed Elsewher e: Yes Loca tion: Pedro Luis abbott [facility] odify By: parag [email or web address] DateTime : 01/28/20 14 04:00:00 PM Not Available Not Available Not Available Anusol-HC 2.5 % topical cream with perineal applicato r apply by topical route 2 times every day to the affected area(s) 08/01 completed Prescrib terri Peoples e: No Locat ion: [facility] Jamie gar By: [email or web address] Encounrubina r DateTime : 07/06/19 02:30:00 PM Not Available Not Available Not Available Vitals Date Recorded Body height Body mass index (BMI) Body weight Systolic And Diastolic Provider Name and Address Organization Details Last Updated DateTime 12/29/2024 163.2 cm 33.2 kg/m2 71780.51 g 111/76 mm[Hg] Christina Osorio [place] - [facility] 12/29/2024 10:30:01 Social History Question Answer Notes LastModified by Organizat ion Details LastModified Time Do You Have An Advance Directive? No [email or web address] Information n ot available 11/04/2024 How Many Years Have You Consumed Alcohol? 4 [email or web address] Information not available 11/04/2024 Are You Blind Or Do You Have Difficulty Seeing? No [email or web address] Information not available 11/04/2024 What Is Your Level Of Caffeine Consumption? Moderate [email or web address] Information not available 11/04/2024 How Much Tobacco Do You Chew? None [email or web address] Information not available 11/04/2024 In The 14 Days Before Symptom Onset, Have You Had Close Contact With A Laboratory-confirme d COVID-19 While That Case Was Ill? No [email or web address] Information n ot available 11/04/2024 In The 14 Days Before Symptom Onset, Have You Had Close Contact With A Person Who Is Under Investigation For COVID-19 While That Person Was Ill? No [email or web address] Information not available 11/04/2024 Have You Been To An Area Known To Be High Risk For COVID-19? No [email or web address] Information not available 11/04/2024 Are You Deaf Or Do You Have Serious Difficulty Hearing? No Information not available 11/04/2024 What Type Of Diet Are You Following? REGULAR [email or web address] Information n ot available 11/04/2024 What Is The Highest Grade Or Level Of School You Have Completed Or The Highest Degree You Have Received? [id number] [email or web address] Information not available 11/04/2024 Are There Any Guns Present In Your Home? No [email or web address] Information not available 11/04/2024 Do You Use Protection During Sex? No [email or web address] Information not available 11/04/2024 Do You Use Your Seat Belt Or Car Seat Routinely? Yes [email or web address] Information not available 11/04/2024 Do You Have Smoke And Carbon Monoxide Detectors In Your Home? Yes [email or web address] Information not available 11/04/2024 How Much Tobacco Do You Smoke? No [email or web address] Information not available 11/04/2024 Do You Use Sunscreen Routinely? Yes [email or web address] Information not available 11/04/2024 Have You Used IV Drugs? No [email or web address] Information not available 11/04/2024 Do You Have Difficulty Walking Or Climbing Stairs? No Information not available 05/30/2022 Sex: Unknown Functional Status Question Answer Note LastModified by Organizat ion Details LastModified Time Do you use any illicit or recreational drugs? No [email or web address] Information not available 11/04/2024 What is your level of alcohol consumption? Occasional Information not available 11/04/2024 Are you able to walk independently without assistance or assistive devices? [email or web address] Information not available 11/04/2024 Are you able to care for yourself independently? 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 No Information not available 05/30/2022 What is your exercise level? Occasional [email or web address] Information not available 11/04/2024 Mental Status Question Answer Note LastModified by Organization D etails LastModified Time Do you feel stressed (tense, restless, nervous, or anxious, or unable to sleep at night)? [id number] [email or web address] Information not available 11/04/2024 Family History Relationship Description Onset Age of this Age Resolved Age Notes LastModified by Organization Details LastModified Time Maternal Grandmother Malignant neoplasm of stomach [email or web address] Not available 2024 10:21:44 Father Atrial fibrillation [email or web address] Not available 10:21:44 Father Cerebrovascu lar accident [email or web address] Not available 16:23:20 Father Hypertensive disorder [email or web address] Not available 2024 16:23:20 Sister Malignant neoplasm of breast [email or web address] Not available 05/16 13:00:13 Mother Asthma [email or web address] Not available 11/04/2024 16:23:20 Maternal Grandfather Malignant neoplasm of colon [email or web address] Not available 2024 16:23:20 Paternal Grandmother Malignant neoplasm of breast [email or web address] Not available 2024 16:23:20 Medical History Condition [...] ICD10 Code Diagnosis IMO Codes Diagnosis Note [id number] VALERIO EID MD [address] [address] 12/29/2024 10:17:39 12/29/2024 10:52:10 state [id number] Z39.2 [id number] S/p 4 weeks ago here today for [...] Member ID Haney Member ID Guarantor Name 12/29/2024 2 [facility] [id number] [place] Michela Kinney [id number] Violetta Kinney 12/29/2024 1 [facility] [id number] Violetta Kinney [id number] Violetta Kinney Notes Date Note Type Note Provider Name and Address Organization Details Recorded Time 12/29/2024 text/html VisitReported by PatientROS as noted [...] at this time. Partner considering vasectomy. Christina dang [facility] 12/29/2024 10:52:46 OBGyn Episode Ob Episode Information Episode Created Date Number of Fetuses Patient Bloodtype Patient rh Status Prepregnancy Weight lbs Domestic Partner Domestic Partner Phone Father Name Senior Manager Mmcoe Status 06/03/19 25 1 A Positive 203 CLOSED Fetus Data First Name Last Name Admitted to NICU Weight (g) Sex Living Outcome Pediatric Complications Fetus ID Race Codes Race Delivery Type Tonja dominique false 3912.23 1 M true Full Term [id number] Vaginal Delivery Problems Problem Notes Problem Name Start Date End Date Resolution Snomed Code Not e Multigravida of advanced maternal age 0508/06/2024 [id number] Rogelio Calculation Initial Rogelio Date Initial Exam [...] Sound Latest Days Gestation 07/21/19 25 20 [email or web address] 06/02/2024 12/06/19 25 4 Pre- Flowsheet Flowsheet [...] Weight in lbs Pre/Post Dialysis Refused Weight 204.784580347150 BP Diastolic BP Location Tested BP Systolic BP Type 75 L arm 123 sitting Fetus Heart Rate Present A 158 Fetus Movement A No Comments Patient presents to [facility] care. Hx of 2 uncomplicated SVDs. otherwise uncomplicated. No nausea or cramping. NT/NB wnl today, LR male NIPT! New OB labs also wnl. RTC 4 weeks for routine care. Flowsheet Date 07/01/2024 Sarmiento Score Blood Edema Fundus Height Fundus Units Glucose Ketones Leukocytes Nitrite Labor Signs Protein Cervic Dilation Cervic Effacement Cervic Station Type Weight in lbs Pre/Post Dialysis Refused Weight 207.038977655209 BP Diastolic BP Location Tested BP Systolic [...] Weight in lbs Pre/Post Dialysis Refused Weight 209.917770965942 BP Diastolic BP Location Tested BP Systolic [...] Weight in lbs Pre/Post Dialysis Refused Weight 210.020641109264 BP Diastolic BP Location Tested BP Systolic [...] Weight in lbs Pre/Post Dialysis Refused Weight 211.346676337331 BP Diastolic BP Location Tested BP Systolic [...] Type Weight in lbs Pre/Post Dialysis Refused 213.952055196307 BP Diastolic BP Location Tested BP Systolic [...] Type Weight in lbs Pre/Post Dialysis Refused 168.179188748166 BP Diastolic BP Location Tested BP Systolic [...] Weight in lbs Pre/Post Dialysis Refused Weight 221.677884081737 BP Diastolic BP Location Tested BP Systolic [...] Type Weight in lbs Pre/Post Dialysis Refused 220.076410603090 BP Diastolic BP Location Tested BP Systolic [...] Weight in lbs Pre/Post Dialysis Refused Weight 222.9362601550 BP Diastolic BP Location Tested BP Systolic [...] Weight in lbs Pre/Post Dialysis Refused Weight 218.749812339550 BP Diastolic BP Location Tested BP Systolic [...] Weight in lbs Pre/Post Dialysis Refused Weight 195.755225189462 BP Diastolic BP Location Tested BP Systolic [...]
--- OUTSIDE RECORDS SUMMARY | 2025-01-29 21:29 | XMS_ITS | Continuity of Care Document ---
Author Organization [facility] Address [address] [place] [address] Care Team Providers Care Facility Supervisor Name Role Phone LEO ZAMARRIPA Primary Care Provider [phone] Assessment Encounter Date Assessment Date Assessment LastModified by Organization Details LastModified Time 11/12/2024 11/12/2024 Patient is ___weeks . Discussed plan. [email or web address] Not available 11/12/2024 17:44:12 Plan of Treatment Reminders Order Date Submit [...] urine Amphetamines : negati ve Not Available [facility] [address], [place], [address], 06/03/2024 17:47:42 06/04/19 25 06/03/2024 drug scree n, urine Cannabinoids : negati ve Not Available [facility] [address], [place], [address], 06/03/2024 17:47:42 06/04/19 25 06/03/2024 drug scree n, urine Cocaine: negati ve Not Available [facility] [address], [place], [address], 06/03/2024 17:47:42 06/04/19 25 06/03/2024 drug scree n, urine Opiates: negati ve Not Available [facility] [address], [place], [address], 06/03/2024 17:47:42 06/04/19 25 06/03/2024 drug scree n, urine Phenocyclidi ne: negati ve Not Available [facility] [address], [place], [address], 06/03/2024 17:47:42 06/04/19 25 06/03/2024 drug scree n, urine Barbiturates : negati ve Not Available [facility] [address], [place], [address], 06/03/2024 17:47:42 06/04/19 25 06/03/2024 drug scree n, urine Benzodiazepi romina: negati ve Not Available [facility] [address], [place], [address], 06/03/2024 17:47:42 06/04/19 25 06/03/2024 drug scree n, urine Ethanol: negati ve Not Available [facility] [address], [place], [address], 06/03/2024 17:47:42 06/04/19 25 06/03/2024 drug scree n, urine Hallucinogen s: negati ve Not Available [facility] [address], [place], [address], 06/03/2024 17:47:42 06/04/19 25 06/03/2024 drug scree n, urine Inhalants: negati ve Not Available [facility] [address], [place], [address], 06/03/2024 17:47:42 06/04/19 25 06/03/2024 drug scree n, urine Anabolic Steroids: negati ve Not Available [facility] [address], [place], [address], 06/03/2024 17:47:42 09/22/19 25 09/21/2024 HEMAT OCRIT (HCT) HCT 32.3 % (based on docume nted legal sex) 34.0-4 5.0 low Not Available [facility] (Lab) [address], [place], [address], 09/22/2024 12:01:19 09/22/19 25 09/21/2024 HEMOG LOBIN (HGB) HGB 10.4 g/dL (based on docume nted legal sex) 11.6-1 5.4 low Not Available [facility] (Lab) [address], [place], [address], 09/22/2024 12:01:20 09/22/19 25 09/21/2024 GTT - GESTA JULIUS L GARFIELD Beltrán, ACOG OB glucose, 1 hour screen 146 mg/dL 70-135 high Not Available [facility] (Lab) [address] [place], [address], 09/22/2024 12:01:20 09/22/19 25 09/21/2024 HIV 1/2 ANTIG EN/AN TIBOD Y, REFLE X CONFI RMATI ON HIV antigen/anti body Nonrea ctive nonrea ctive HIV-1 antig en and HIV-1 /HIV- 2 antib odies were not detec greta. No labor atory evide nce of HIV infec tion. Not Available [facility] (Lab) [address], [place], [address], 09/22/2024 12:01:21 09/22/19 25 09/21/2024 RPR SCREE N, REFLE X TITER /CONF IRMAT ION RPR qualitative Nonrea ctive nonrea ctive Not Available [facility] (Lab) [address] [place], [address], 09/22/2024 12:01:21 09/29/19 25 09/28/2024 GTT - GESTA JULIUS L, 3 HOUR, ACOG glucose, fasting acog 84 mg/dL 70-94 Not Available [facility] (Lab) [address] [place], [address], 09/29/2024 03:44:44 09/29/19 25 09/28/2024 GTT - GESTA JULIUS L, 3 HOUR, ACOG glucose, 1 hour acog 181 mg/dL 70-179 high Not Available [facility] (Lab) [address] [place], [address], 09/29/2024 03:44:44 09/29/19 25 09/28/2024 GTT - GESTA JULIUS L, 3 HOUR, ACOG glucose, 2 hour acog 150 mg/dL 70-154 Not Available [facility] (Lab) [address] [place], [address], 09/29/2024 03:44:44 09/29/19 25 09/28/2024 GTT - GESTA JULIUS L, 3 HOUR, ACOG glucose, 3 hour acog 127 mg/dL 70-139 Not Available [facility] (Lab) [address] [place], [address], 09/29/2024 03:44:44 11/05/19 25 11/04/2024 CULTU RE: [...] Resul jonathan Lab: [facility] [address] [facility] [address] Tel: CULTU RE ----- ----- ----- --- [...] beatris for these drugs . Not Available [facility] (Lab) [address], [place], [address], 11/08/2024 15:56:27 06/03/19 25 06/02/2024 US, obste tric, nucha l trans lucen cy No observ ation record ed. [email or web address] [facility] [address] [address], [place], [address], 06/02/2024 22:49:25 06/03/19 25 06/02/2024 US, obste tric, nucha l trans lucen cy No observ ation record ed. [email or web address] [facility] [address], [place], [address], 06/02/2024 18:53:48 07/21/19 25 07/20/2024 US, obste tric, 2nd or 3rd trime ster No observ ation record ed. [email or web address] [facility] [address], [place], [address], 07/20/2024 18:43:23 07/21/19 25 07/20/2024 US, obste tric, follo w-up No observ ation record ed. [email or web address] [facility] [address], [place], [address], 08/06/2024 14:42:59 10/20/19 25 10/19/2024 US, obste tric, follo w-up No observ ation record ed. [email or web address] [facility] [address], [place], [address], 10/19/2024 18:42:11 10/20/19 25 10/19/2024 US, obste tric, follo w-up No observ ation record ed. [facility] [address], [place], [address], 10/21/2024 16:49:04 11/03/19 25 11/02/2024 US, obste tric, limit ed No observ ation record ed. [email or web address] [facility] [address], [place], [address], 11/02/2024 18:27:07 11/03/19 25 11/02/2024 US, obste tric, limit ed No observ ation record ed. LESTER [facility] [address], [place], [address], 11/02/2024 17:21:55 Result Notes None recorded. Problems Name Problem SNOMED Code Status Onset Date Resolution Date Notes Provider Name and Address Organization Details Recorded Time Complete Completed 201209/12/2020 Legally unspecif ied , complete , without mention of complica tion;Rec orded Elsewher e: No Locat ion: [facility] S ource: EHR Correctional Nurse june: N Practi ce ID: 0001 Miko lable Time: 06:30:00 PM Gracy Mirelse [place], [place] - [facility] 16:59:22 Primigra james [id number] Completed 201209/12/2020 Supervis ion of normal first pregnanc y;Record ed Elsewher e: No [facility] S ource: EHR Correctional Nurse june: N Donnellti ce ID: 0001 Miko lable Time: 05:15:00 PM Gracy Mireles [facility] 17:00:04 Pregnanc y test positive [id number] Completed 201209/12/2020 Pregnanc y examinat ion or test, positive result;R ecorded Elsewher e: No Locat ion: [facility] S ource: EHR Correctional Nurse june: N Donnellti ce ID: 0001 Miko lable Time: 05:15:00 PM Gracy Mireles [facility] 17:00:00 Ultrason ography Completed 201209/12/2020 Antenata l screenin g for malforma tion using ultrason ics;Rich rded Elsewher e: No Locat ion: [facility] S ource: EHR Correctional Nurse june: N Donnellti ce ID: 0001 Miko lable Time: 04:30:00 PM Gracy Mireles [facility] 17:00:21 Antenata l screenin g Completed 201209/12/2020 Antenata l screenin g for malforma tion using ultrason ics;Rich rded Elsewher e: No Locat ion: [facility] S ource: EHR Correctional Nurse june: N Donnellti ce ID: 0001 Miko lable Time: 04:30:00 PM Gracy Mireles [facility] 16:59:17 Congenit al malforma tion [id number] Completed 201209/12/2020 Antenata l screenin g for malforma tion using ultrason ics;Rich rded Elsewher e: No Locat ion: [facility] S ource: EHR Correctional Nurse june: N Donnellti ce ID: 0001 Miko lable Time: 04:30:00 PM Gracy Mireles [facility] 16:59:24 Trauma to perineum and/or vulva during delivery [id number] Completed 201309/12/2020 Unspecif ied trauma to perineum and vulva, unspecif ied as to episode of care in pregnanc y;Record ed Elsewher e: No Locat ion: [facility] S ource: EHR Correctional Nurse june: N Practi ce ID: 0001 Miko lable Time: 11:30:00 AM Gracy Mireles [facility], [facility] 17:00:18 Routine antenata l care Completed 201309/12/2020 Supervis ion of other normal pregnanc y;Practi ce ID: 0001 Gracy Mireles [facility] 17:00:05 Excessiv e growth affectin g manageme nt of mother [id number] Completed 201309/12/2020 Excessiv e growth, affectin g manageme nt of mother, antepart um;Recor ded Elsewher e: No [facility] ource: EHR Correctional Nurse june: N Practi ce ID: 0001 Miko lable Time: 04:00:00 PM Gracy Mireles [facility] 16:59:39 Delivery normal [id number] Completed 201309/12/2020 Normal delivery ;Practic e ID: 0001 Gracy Mireles [facility] 16:59:37 Single live from singleto n pregnanc y [id number] Completed 201309/12/2020 Mother with single liveborn ;Practic e ID: 0001 Gracy Mireles [facility] 17:00:10 Pregnanc y test negative [id number] Completed 201309/12/2020 Pregnanc y examinat ion or test, negative result;R ecorded Elsewher e: No [facility]: E[facility] Correctional Nurse june: N Practi ce ID: 0001 Miko lable Time: 10:30:00 AM Gracy Mireles [facility], [facility] 16:59:59 Postpart um care Completed 201309/12/2020 Post Followup ;Recorde d Elsewher e: No Locat ion: [facility] S ource: EHR Correctional Nurse june: N Practi ce ID: 0001 Miko lable Time: 10:30:00 AM Gracy Mireles [facility], [facility] 16:59:55 Menstrua tion finding Completed 201309/12/2020 Menometr orrhagia ;Recorde d Elsewher e: No [facility] S ource: EHR Correctional Nurse june: N Donnellti ce ID: 0001 Miko lable Time: 09:00:00 AM Gracy Mireles [facility], [facility] 16:59:49 Postoper ative follow-u p visit Completed 201309/12/2020 Follow-u p examinat ion, followin g unspecif ied surgery; Recorded Elsewher e: No Locat ion: [facility] S ource: EHR Correctional Nurse june: N Donnellti ce ID: 0001 Miko lable Time: 04:30:00 PM Gracy Mireles [facility] 16:59:54 Amenorrh ea [id number] Completed 201309/12/2020 Amenorrh ea;Recor ded Elsewher e: No Locat ion: [facility] S ource: EHR Correctional Nurse june: N Practi ce ID: 0001 Miko lable Time: 04:00:00 PM Gracy Mireles [facility] 16:59:15 Vaginiti s and vulvovag initis Completed 201309/12/2020 Vaginiti s and vulvovag initis, unspecif ied;Rich rded Elsewher e: No Locat ion: [facility] S ource: EHR Correctional Nurse june: N Practi ce ID: 0001 Miko lable Time: 04:00:00 PM Gracy Mireles [facility], [facility] 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 17:00:15 Overweig ht [id number] Completed 201309/12/2020 Overweig ht;Recor ded Elsewher e: No Locat ion: [facility] S ource: EHR Correctional Nurse june: N Donnellti ce ID: 0001 Miko lable Time: 04:00:00 PM Gracy Mireles [facility], [facility] 16:59:52 Speciali zed medical examinat ion Completed 201409/12/2020 Other specifie d chlamydi al diseases ;Recorde d Elsewher e: No Locat ion: [facility] S ource: EHR Correctional Nurse june: N Practi ce ID: 0001 Miko lable Time: 05:15:00 PM Gracy Mireles [facility] 17:00:16 Venereal disease screenin g Completed 201409/12/2020 Screenin g examinat ion for venereal disease; Recorded Elsewher e: No Locat ion: [facility] S ource: EHR Correctional Nurse june: N Practi ce ID: 0001 Miko lable Time: 05:15:00 PM Gracy Mireles [facility], [facility] 17:00:25 Leukorrh ea [id number] Completed 201409/12/2020 Leukorrh ea, not specifie d as infectiv e;Record ed Elsewher e: No Locat ion: [facility] S ource: EHR Correctional Nurse june: N Practi ce ID: 0001 Miko lable Time: 05:15:00 PM Gracy Mireles [facility] 16:59:45 Acute vaginiti s [id number] Completed 201509/12/2020 Acute vaginiti s;Record ed Elsewher e: No Locat ion: [facility] S ource: EHR Correctional Nurse june: N Practi ce ID: 0001 Miko lable Time: 02:30:00 PM Gracy [facility] 16:59:14 Hemorrho ids [id number] Completed 201509/12/2020 Hemorrho id;Recor ded Elsewher e: No Locat ion: [facility] S ource: EHR Correctional Nurse june: N Practi ce ID: 0001 Miko lable Time: 02:30:00 PM Gracy [facility] 16:59:[address] Concept Completed 201509/12/2020 Encntr for general adult medical exam w/o abnormal findings ;Recorde d Elsewher e: No Locat ion: [facility] S ource: EHR Correctional Nurse june: N Practi ce ID: 0001 Miko lable Time: 10:30:00 AM Gracy Mireles [facility] 17:00:12 Pregnanc y detectio n examinat ion Completed 201609/12/2020 Encounte r for pregnanc y test, result positive ;Recorde d Elsewher e: No Locat ion: [facility] S ource: EHR Correctional Nurse june: N Practi ce ID: 0001 Miko lable Time: 09:45:00 AM Gracy [facility] 16:59:57 Secondar y amenorrh ea [id number] Completed 201609/12/2020 Secondar y amenorrh ea;Pract ice ID: 0001 Gracy dang [facility] 17:00:08 Normal pregnanc y in kaitlina james [id number] 4106 Completed 201609/12/2020 Encounte r for supervis ion of other normal pregnanc y, 2nd trimeste r;Record ed Elsewher e: No Locat ion: [facility] S ource: EHR Correctional Nurse june: N Practi ce ID: 0001 Miko lable Time: 08:30:00 AM Gracy dang [facility] 16:59:50 Prematur e rupture of membrane s [id number] Completed 201609/12/2020 Full-ter m epi ROM, unsp time betw rupture and onset labor;Pr actice ID: 0001 Gracy dang [facility] 17:00:02 Lacerati on of female perineum Completed 201609/12/2020 First degree perineal lacerati on during delivery ;Practic e ID: 0001 Gracy dang [facility] 16:59:44 Gestatio n period, 39 weeks [id number] Completed 201609/12/2020 39 weeks gestatio n of pregnanc y;Practi ce ID: 0001 Gracy dang [facility] 16:59:40 Lochia finding Completed 201609/12/2020 Encounte r for routine postpart um follow-u p;Record ed Elsewher e: No Locat ion: [facility] S ource: EHR Correctional Nurse june: N Practi ce ID: 0001 Miko lable Time: 09:45:00 AM Gracy dang [facility] 16:59:47 Uses combined oral contrace ption [id number] Completed 201709/12/2020 Encounte r for initial prescrip tion of contrace ptive pills;Re corded Elsewher e: No [facility]: E[facility] Correctional Nurse june: N Ken ce ID: 0001 Miko lable Time: 10:15:00 AM Gracy Mireles [facility] 1 16:59:20 Body mass index 25-29 - overweig ht [id number] Completed 201709/12/2020 Body mass index (BMI) 28.0-28. 9, adult;Re corded Elsewher e: No Locat ion: [facility] S ource: EHR Correctional Nurse june: N Donnellti ce ID: 0001 Miko lable Time: 10:15:00 AM Gracy Mireles [facility] 16:59:19 Screenin g for malignan t neoplasm of cervix Completed 201709/12/2020 Screenin g for malignan t neoplasm s of the cervix;R ecorded Elsewher e: No Locat ion: [facility] S ource: EHR Correctional Nurse june: N Donnellti ce ID: 0001 Miko lable Time: 10:15:00 AM Gracy Mireles [facility] 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 17:00:13 Pregnanc y [id number] Completed 202412/29/2024 Christina Osorio [facility] 5 10:32:08 Multigra james of advanced maternal age [id number] Completed 2024 Kim dang [facility] 14:42:40 Problem Notes None recorded. Procedures Surgical History Date Name Laterality Status Provider Name and Address Organization Details Recorded Time 09/13/19 21 Date of Last Pap Smear completed Norma Freeman [facility] 12/03/2023 17:17:36 03/18/19 14 Hysteroscopy completed Gracy Mireles [facility] 09/12/2020 17:03:41 Imaging Results None [...] e: Yes Loca tion: [facility] Jamie odify By: ary marin DateTime : [...] Prescrib ed Elsewher e: Yes [facility] odify By: [email or web address] Abbott ncounter DateTime : 09/01/19 14 10:30:00 AM Not Available Not Available Not Available prednison e 50 mg tablet TAKE 1 TABLET BY MOUTH DAILY 05/06 completed Not Available Not Available Not Available Vitamin D2 1,250 mcg (50,000 unit) capsule take 1 capsule ([id number] ITS) by oral route every week 08/31 completed Prescrib ed Elsewher e: No Locat ion: [facility] odify By: [email or web address] En counter DateTime : 01/29/20 13 11:56:09 AM Not Available Not Available Not Available norethind lisa (contrace ptive) 0.35 mg tablet take 1 tablet by oral route every day 12/16 completed Prescrib ed Elsewher e: No Locat ion: [facility] odify By: [email or web address] Abbott ncounter DateTime : 09/01/19 14 10:30:00 AM Not Available Not Available Not Available sertralin e 20 mg/mL oral concentra te 04/18 completed Prescrib ed Elsewher e: Yes Loca tion: [facility] odify By: [email or web address] Encount er DateTime : 07/06/19 16 02:30:00 [...] e: No Locat ion: [facility] odify By: justina [email or web address] DateTime : 10/23/19 14 09:00:00 AM Not Available Not Available Not Available erythromy michel with ethanol 2 % topical gel apply by topical route 2 times every day a thin layer to the affected area(s) in the morning and evening 01/27 completed Prescrib ed Elsewher e: No Locat ion: [facility] odify By: parag Abbott ncounter DateTime : 01/29/20 13 11:56:09 AM Not Available Not Available Not Available Duac 1.2 % (1 % base)-5 % topical gel apply by topical route 2 times every day to the affected area(s) in the morning and evening 12/16 completed Prescrib ed Elsewher e: Yes Loca tion: [facility] odify By: ary marin DateTime : 10/29/19 [...] e: No Locat ion: [facility] odify By: alonso [email or web address] DateTime : 12/17/19 13 05:15:00 PM Not Available Not Available Not Available 28 mg iron-800 mcg tablet 07/19 completed Prescrib ed Elsewher e: Yes Loca tion: [facility] odify By: napoleon gann DateTime : 04/18/19 19 11:15:00 AM Not Available Not Available Not Available One Daily 27 mg iron-800 mcg tablet take 1 tablet by oral route every day 06/30 completed Prescrib ed Elsewher e: Yes Loca tion: [facility] odify By: parag Abbott ncounter DateTime : 01/28/20 14 04:00:00 PM Not Available Not Available Not Available Anusol-HC 2.5 % topical cream with perineal applicato r apply by topical route 2 times every day to the affected area(s) 08/01 completed Prescrib terri Peoples e: No Locat ion: [facility] odify By: ivy schaefer DateTime : 07/06/19 16 02:30:00 PM Not Available Not Available Not Available Vitals Date Recorded Body weight Systolic And Diastolic Provider Name and Address Organization Details Last Updated DateTime 11/12/2024 92511.3214 g 117/80 mm[Hg] Morelia [facility] 11/12/2024 17:44:46 Social History Question Answer Notes LastModified by Organizat ion Details LastModified Time Do You Have An Advance Directive? No [email or web address] Information n ot available 11/04/2024 How Many Years Have You Consumed Alcohol? 4 [email or web address] Information not available 11/04/2024 Are You Blind Or Do You Have Difficulty Seeing? No [email or web address] Information not available 11/04/2024 What Is Your Level Of Caffeine Consumption? Moderate [email or web address] Information not available 11/04/2024 How Much Tobacco Do You Chew? None [email or web address] Information not available 11/04/2024 In The 14 Days Before Symptom Onset, Have You Had Close Contact With A Laboratory-confirme d COVID-19 While That Case Was Ill? No [email or web address] Information n ot available 11/04/2024 In The 14 Days Before Symptom Onset, Have You Had Close Contact With A Person Who Is Under Investigation For COVID-19 While That Person Was Ill? No [email or web address] Information not available 11/04/2024 Have You Been To An Area Known To Be High Risk For COVID-19? No [email or web address] Information not available 11/04/2024 Are You Deaf Or Do You Have Serious Difficulty Hearing? No [email or web address] Information not available 11/04/2024 What Type Of Diet Are You Following? REGULAR [email or web address] Information n ot available 11/04/2024 What Is The Highest Grade Or Level Of School You Have Completed Or The Highest Degree You Have Received? [id number] [email or web address] Information not available 11/04/2024 Are There Any Guns Present In Your Home? No [email or web address] Information not available 11/04/2024 Do You Use Protection During Sex? No [email or web address] Information not available 11/04/2024 Do You Use Your Seat Belt Or Car Seat Routinely? Yes [email or web address] Information not available 11/04/2024 Do You Have Smoke And Carbon Monoxide Detectors In Your Home? Yes [email or web address] Information not available 11/04/2024 How Much Tobacco Do You Smoke? No [email or web address] Information not available 11/04/2024 Do You Use Sunscreen Routinely? Yes [email or web address] Information not available 11/04/2024 Have You Used IV Drugs? No Information not available 11/04/2024 Do You Have Difficulty Walking Or Climbing Stairs? No Information not available 05/30/2022 Sex: Unknown Functional Status Question Answer Note LastModified by Organizat ion Details LastModified Time Do you use any illicit or recreational drugs? No [email or web address] Information not available 11/04/2024 What is your level of alcohol consumption? Occasional [email or web address] Information not available 11/04/2024 Are you able to walk independently without assistance or assistive devices? [email or web address] Information not available 11/04/2024 Are you able to care for yourself independently? 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 No Information not available 05/30/2022 What is your exercise level? Occasional [email or web address] Information not available 11/04/2024 Mental Status Question Answer Note LastModified by Organization D etails LastModified Time Do you feel stressed (tense, restless, nervous, or anxious, or unable to sleep at night)? [id number] [email or web address] Information not available 11/04/2024 Family History Relationship Description Onset Age of this Age Resolved Age Notes LastModified by Organization Details LastModified Time Maternal Grandmother Malignant neoplasm of stomach [email or web address] Not available 2024 10:21:44 Father Atrial fibrillation [email or web address] Not available 10:21:44 Father Cerebrovascu lar accident [email or web address] Not available 16:23:20 Father Hypertensive disorder [email or web address] Not available 2024 16:23:20 Sister Malignant neoplasm of breast [email or web address] Not available 05/16 13:00:13 Mother Asthma [email or web address] Not available 11/04/2024 16:23:20 Maternal Grandfather Malignant neoplasm of colon Not available 2024 16:23:20 Paternal Grandmother Malignant neoplasm of breast [email or web address] Not available 2024 16:23:20 Medical History Condition Response Allergies (Food, seasonal, environmental ) N Other N Breast Cancer N Drug/Latex Allergies/Reactions N Blood Transfusion N Lung Disease N Dermatologic Disorders N Defects or Inherited Disease N Breast Problem N Gestational Diabetes N Hematologic disorders N Anesthesia Complications N History of STI N Deep Vein Thrombosis N Polycystic ovary syndrome N Anxiety Disorder N Autoimmune disease N Arthritis N Polyps N Infertility N History of abnormal pap N Acid Reflux (GERD) N Cancer N Varicosities N Stroke N [...] ICD10 Code Diagnosis IMO Codes Diagnosis Note [id number] Naeem Sebastian MD [place] [address],[place] [address] 10/19/2024 10:00:38 10/19/2024 10:55:03 Multigravida of advanced maternal age [id number] O09.523 O26.843 Z3A.33 [id number] Naeem Sebastian MD [place] [address],[place] [address] 10/19/2024 10:07:31 10/20/2024 05:37:26 care status [id number] Z34.83 [id number] VALERIO EID MD [place] [address],[place] [address] 11/02/2024 16:24:55 11/02/2024 16:55:46 Breech presentation [id number] O32.1XX0 Z3A.35 [id number] VALERIO EID MD [place] [address],[place] [address] 11/04/2024 16:14:38 11/04/2024 16:52:44 Multigravida of advanced maternal age [id number] O09.522 [id number] Gestation period, 35 weeks [id number] Z3A.35 [id number] screening [id number] Z36.85 [id number] Naeem Sebastian MD [place] [address],[place] [address] 11/12/2024 16:53:33 11/13/2024 09:18:51 care status [id number] Z34.83 [id number] Health Concerns Section Related Observation LastModified by Organization Detai ls LastModified Time None Recorded Concern Status LastModified by Organization Details LastModified Time None Recorded Payers Encounter Date Sequence Insurance Name Policy Number Policy Haney Covered Member ID Haney Member ID Guarantor Name 11/12/2024 2 [facility] [id number] Graham Kinney [id number] Violetta Kinney 11/12/2024 1 [facility] [id number] Violetta Abbott Nirmal [id number] Violetta Kinney Notes Date Note Type Note Provider Name and Address Organization Details Recorded Time 11/12/2024 text/html Generic HPI TemplateReported by Patient Naeem Sebastian MD [address], [place], [address], [place] [facility] 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 Status 06/03/19 25 1 A Positive 203 CLOSED Fetus Data First Name Last Name Admitted to NICU Weight (g) Sex Living Outcome Pediatric Complications Fetus ID Race Codes Race Delivery Type Tonja dominique false 3912.23 1 M true Full Term [id number] Vaginal Delivery Problems Problem Notes Problem Name Start Date End Date Resolution Snomed Code Not e Multigravida of advanced maternal age 0508/06/2024 [id number] Rogelio Calculation Initial Rogelio Date Initial Exam [...] Sound Latest Days Gestation 07/21/19 25 20 [email or web address] 06/02/2024 12/06/19 25 4 Pre- Flowsheet Flowsheet [...] Weight in lbs Pre/Post Dialysis Refused Weight 204.277609512904 BP Diastolic BP Location Tested BP Systolic BP Type 75 L arm 123 sitting Fetus Heart Rate Present A 158 Fetus Movement A No Comments Patient presents to [facility]. Hx of 2 uncomplicated SVDs. otherwise uncomplicated. No nausea or cramping. NT/NB wnl today, LR male NIPT! New OB labs also wnl. RTC 4 weeks for routine care. Flowsheet Date 07/01/2024 Sarmiento Score Blood Edema Fundus Height Fundus Units Glucose Ketones Leukocytes Nitrite Labor Signs Protein Cervic Dilation Cervic Effacement Cervic Station Type Weight in lbs Pre/Post Dialysis Refused Weight 207.411671174865 BP Diastolic BP Location Tested BP Systolic [...] Weight in lbs Pre/Post Dialysis Refused Weight 209.596112436695 BP Diastolic BP Location Tested BP Systolic [...] Weight in lbs Pre/Post Dialysis Refused Weight 210.263601876605 BP Diastolic BP Location Tested BP Systolic [...] Weight in lbs Pre/Post Dialysis Refused Weight 211.279984510792 BP Diastolic BP Location Tested BP Systolic [...] Type Weight in lbs Pre/Post Dialysis Refused 213.704061322978 BP Diastolic BP Location Tested BP Systolic [...] Type Weight in lbs Pre/Post Dialysis Refused 168.530412341738 BP Diastolic BP Location Tested BP Systolic [...] Weight in lbs Pre/Post Dialysis Refused Weight 221.405540903351 BP Diastolic BP Location Tested BP Systolic [...] Type Weight in lbs Pre/Post Dialysis Refused 220.502285232102 BP Diastolic BP Location Tested BP Systolic [...] Weight in lbs Pre/Post Dialysis Refused Weight 222.8525054690 BP Diastolic BP Location Tested BP Systolic [...] Weight in lbs Pre/Post Dialysis Refused Weight 218.717901873577 BP Diastolic BP Location Tested BP Systolic [...] Weight in lbs Pre/Post Dialysis Refused Weight 195.471462210310 BP Diastolic BP Location Tested BP Systolic [...]
[2025-01-29 21:40] VITALS: BP 134/84; PULSE 61; RESP 17; TEMP 36.9; O2SAT 99
[2025-01-29 21:41] VITALS: BP 134/84; PULSE 67; RESP 20; TEMP 36.3; O2SAT 100
[2025-01-29 21:47] VITALS: BP 134/84; PULSE 82; RESP 17; TEMP 36.9; O2SAT 99
--- NOTE | 2025-01-29 21:50 | ECG_ITS ---
Test Date: 2025-01-29 21:55:47 Measurements Intervals [place] Rate: 70 P: 35 HI: 151 QRS: 62 QRSD: 88 T: 17 QT: 404 QTc: 438 Interpretive Statements SINUS RHYTHM Electronically Signed On 01-30-2025 10:52:16 CREDIT VERIFIER by Daniel Puentes D.O
--- NOTE | 2025-01-29 22:19 | ED_ITS ---
HPI - Back Pain/Injury General Chief Complaint: Back Pain/Injury <Deena Mathew APRN - Last Filed: 01/30/25 02:29> Stated Complaint: BACK PAIN WITH SOB <Deena Mathew APRN - Last Filed: 01/30/25 02:29> Time Seen by Provider: 01/29/25 21:32 <Deena Mathew APRN - Last Filed: 01/30/25 02:29> History of Present Illness HPI Narrative: Patient is a 34-year-old female who presents to the ER with right-sided flank pain that started around 5:00 p.m. this evening. She reports the pain comes in waves but it is strong and is located below her right ribcage on her back. Patient reports she vaginally delivered a baby 8 weeks ago and her post-delivery bleeding has subsided. She endorses a history of 3 pregnancies/vaginal deliveries and gestational diabetes. Patient reports she still has her gallbladder, has never had a kidney stone, and has never had a blood clot. She denies any chest pain, urinary symptoms, or recent fevers. Patient does endorse shortness of breath associated with the waves of pain. < Deena Mathew APRN - Last Filed: 01/30/25 02:29> Related Data Home Medications: Home Medications ?Medication ?Instructions ?Recorded ?Confirmed ?Last Taken ?Type vits no.126-ferrous fum tablet PO 09/11/2411/05/24 History 28 mg iron-folic acid 800 mcg tablet (Classic ) ferrous sulfate 137 mg (45 mg 137 mg PO DAILY 11/05/24 11/05/24 11/05/24 History iron) tablet,extended release (Slow Fe) <Deena Mathew APRN - Last Filed: 01/30/25 02:29> Allergies/Adverse Reactions: Allergies Allergy/AdvReac Type Severity Reaction Status Date / Time No Known Allergies Allergy Unknown Verified 01/29/25 21:47 <Deena Mathew APRN - Last Filed: 01/30/25 02:29> Review of Systems 2 Review of Systems: All systems reviewed & are unremarkable except as noted in HPI and below <Deena Mathew APRN - Last Filed: 01/30/25 02:29> [facility] Past Medical History Medical History: Medical History Migraine headache with aura Right wrist pain Sacroiliac inflammation <Deena Mathew APRN - Last Filed: 01/30/25 02:29> Family History Family History: Family History Grandparent Diabetes mellitus Family history of malignant neoplasm of stomach Carcinoma of colon Family history of malignant neoplasm of breast Sibling Family history of migraine headaches Breast cancer stage 1 remission Father Hypertension Cerebrovascular accident Mother Asthma <Deena Mathew APRN - Last Filed: 01/30/25 02:29> Social History Social History: Social History Smoking status: Never smoker Second hand tobacco smoke exposure: No Alcohol intake: never Substance use: never Substance use type: does not use Lack of Transportation: No Lack of Food: Never True Current Housing: I Have Housing Concerned About Future Housing: No Difficulty Paying Gas/Electric Bills: No Difficulty Paying for Meds: No Currently Unemployed: No Education: Bachelor's Degree Difficulty w/ Childcare or Family Care: No Occupation/Education: occupation Gender identity (if verbalized by the patient): Female Spiritual care concerns: No <Deena Mathew APRN - Last Filed: 01/30/25 02:29> Exam 2 Narrative: GENERAL: Well appearing, well-nourished, non-toxic, in no acute distress. HEAD: Normocephalic, atraumatic. NECK: Supple. No adenopathy, no masses. RESPIRATORY: Airway patent, respirations nonlabored. Clear to auscultation bilaterally, no rales, rhonchi, wheezing. CARDIOVASCULAR: Regular rate and rhythm without murmurs, rubs, or gallops. Peripheral pulses 2+ and equal bilaterally. ABDOMINAL: Soft, nontender, nondistended, no hepatosplenomegaly. Normoactive BS. MUSCULOSKELETAL: Moves all extremities. Strength/ROM intact without gross deformities. SKIN: Warm, dry, normal color. No rashes. NEURO: A&O X3. Speech clear. Cranial nerves II-XII intact. No ataxic movements. PSYCHIATRIC: Appropriate mood and affect. Normal interaction. <Deena Mathew APRN - Last Filed: 01/30/25 02:29> Course Course Emergency Course: JAMAL: Patient signed out to me pending completion of her CT imaging. CTA chest abdomen pelvis did not reveal any acute cardiopulmonary process. CT abdomen pelvis was interpreted by stat read as distended gallbladder with pericholecystic fluid. No CT evidence of stones identified. Cannot exclude cholecystitis, recommend ultrasound. patient was re-evaluated at bedside a point of care right upper quadrant ultrasound. Patient does not have a sonographic Green sign. She does have some gallstones in the gallbladder. No gallbladder wall thickening or pericholecystic fluid. Low concern for acute cholecystitis. Overall the patient says she feels much better. Her abdominal exam is benign. Her vital signs are stable. I discussed results with her at length and she is comfortable being discharged to follow-up with her primary care physician. I will also give her a referral to General surgery for further workup of gallbladder. Patient is comfortable with plan and knows when to return to the ED. <Michael Iraheta MD - Last Filed: 01/30/25 04:19> Vital Signs Vital signs: Vital Signs Temperature 98.4 F 01/29/25 21:40 Pulse Rate 61 01/29/25 21:40 Respiratory Rate 17 01/29/25 21:40 Blood Pressure 134/84 01/29/25 21:40 Pulse Oximetry 99 01/29/25 21:40 Oxygen Delivery Room Air 01/29/25 21:40 Temperature 98.4 F 01/29/25 21:47 Pulse Rate 72 01/30/25 01:52 Respiratory Rate 12 01/30/25 01:52 Blood Pressure 108/67 01/30/25 01:52 Pulse Oximetry 97 01/30/25 01:52 Oxygen Delivery Room Air 01/29/25 21:41 <Deena Mathew APRN - Last Filed: 01/30/25 02:29> Vital Signs Temperature 98.4 F 01/29/25 21:40 Pulse Rate 61 01/29/25 21:40 Respiratory Rate 17 01/29/25 21:40 Blood Pressure 134/84 01/29/25 21:40 Pulse Oximetry 99 01/29/25 21:40 Oxygen Delivery Room Air 01/29/25 21:40 Temperature 98.4 F 01/29/25 21:47 Pulse Rate 72 01/30/25 01:52 Respiratory Rate 12 01/30/25 01:52 Blood Pressure 108/67 01/30/25 01:52 Pulse Oximetry 97 01/30/25 01:52 Oxygen Delivery Room Air 01/29/25 21:41 <Michael Iraheta MD - Last Filed: 01/30/25 04:19> MDM - Back Pain/Injury MDM Narrative Medical decision making narrative: Patient is a 34-year-old female who presents to the ER with right-sided flank pain that started around 5:00 p.m. this evening. She reports the pain comes in waves but it is strong and is located below her right ribcage on her back. Patient reports she vaginally delivered a baby 8 weeks ago and her post-delivery bleeding has subsided. She endorses a history of 3 pregnancies/vaginal deliveries and gestational diabetes. Patient reports she still has her gallbladder, has never had a kidney stone, and has never had a blood clot. She denies any chest pain, urinary symptoms, or recent fevers. Patient does endorse shortness of breath associated with the waves of pain. Labs Ordered: CBC, CMP, UA, PTT, INR, magnesium, troponin, D-dimer Imaging Ordered: Chest x-ray, CTA chest abdomen pelvis, CT lumbar spine Medications Ordered: 1 L normal saline IV bolus, patient declined pain medication Diagnosis: urinary tract infection, back pain 0230- Care signed out to Dr. Iraheta pending CT scan results. Patient Education/Shared MDM: Results of lab work and imaging shared with patient. She continues to decline pain medication. Patient strongly advised to maintain hydration status upon discharge and follow-up with her PCP as soon as possible. She will be discharged home with a prescription for Keflex. Strict return precautions provided. Patient verbalized understanding and is in agreement with plan. Vital signs stable at time of discharge. All questions answered. <Deena Mathew APRN - Last Filed: 01/30/25 02:29> Differential Diagnosis Differential diagnosis: Likely lumbar radiculopathy, strain of lumbar region, pyelonephritis and other (kidney stone, cholecysititis) <Deena Mathew APRN - Last Filed: 01/30/25 02:29> Lab Data Attestation: I reviewed the patient's lab results. <Deena Mathew FINANCIAL EXAMINER - Last Filed: 01/30/25 02:29> Result diagrams: 01/29/25 22:53 01/29/25 22:53 <Deena Mathew FINANCIAL EXAMINER - Last Filed: 01/30/25 02:29> Labs: Lab Results 01/29/25 01/29/25 01/29/25 Range/Units 22:53 23:53 23:55 WBC 8.0 (4.5-10.0) K/mm3 RBC 4.40 (4.2-5.4) M/mm3 Hgb 13.9 D (12.0-15.0) g/dL Hct 41.6 (37.0-47.0) % MCV 94.5 (80-100) fl MCH 31.6 (26-34) pg MCHC 33.4 (32-36) g/dl RDW 12.1 (11.5-14.5) % Plt Count 297 D (150-375) k/mm3 MPV 9.2 (7.4-10.4) fl Immature Gran % (Auto) 0.3 (0-0.5) % Neut % (Auto) 52.0 (45.5-73.1) % Lymph % (Auto) 40.1 (18.3-44.2) % [place] % (Auto) 6.5 (2.6-8.5) % Eos % (Auto) 0.8 (0-4.4) % Baso % (Auto) 0.3 (0.2-1.2) % Lymph # (Auto) 3.20 (0.9-3.2) K/mm3 [place] # (Auto) 0.5 (0.1-0.6) K/mm3 Eos # (Auto) 0.1 (0-0.3) K/mm3 Baso # (Auto) 0.0 (0.0-0.1) K/mm3 Abs Immat Gran (auto) 0.02 (0.00-0.031) K/mm3 Absolute Neuts (auto) 4.2 (1.3-6.7) K/mm3 Absolute Nucleated RBC 0.000 (0.0-0.012) K/mm3 Nucleated RBC % 0.0 (0.0-0.2) % PT 12.8 (11.1-14.7) Seconds INR 1.0 APTT 28.0 (22.3-36.8) Seconds D-Dimer 0.68 H (<0.48) ug/mL Sodium 139 (137-145) mmol/L Potassium 3.7 (3.4-5.0) mmol/L Chloride 102 (98-107) mmol/L Carbon Dioxide 29 (22-30) mmol/L Anion Gap 8 (4-12) mmol/L BUN 17 (7-17) mg/dL Creatinine 0.80 (0.7-1.0) mg/dL Estim Creat Clear Calc 96 ml/min Estimated GFR > 60 (59 - ) Glucose 100 (65-110) mg/dL Calcium 9.4 (8.4-10.2) mg/dL Magnesium 2.2 (1.6-2.3) mg/dL Total Bilirubin 0.3 (0.2-1.3) mg/dL AST 37 H (14-36) U/L ALT 26 (6-35) U/L Alkaline Phosphatase 107 (38-126) U/L Troponin I < 0.012 (0.000-0.034) ng/mL Total Protein 7.5 (6.3-8.2) g/dL Albumin 4.5 (3.5-5.1) g/dL Urine Color Yellow (Yellow) Urine Appearance Cloudy H (Clear) Urine pH 7.0 (5.0-9.0) Ur Specific [place] 1.034 (1.001-1.035) Urine Protein Trace (Negative) mg/dL Urine Glucose (UA) Negative (Negative) mg/dL Urine Ketones Trace H (Negative) mg/dL Ur Blood (Man) Negative (Negative) Urine Nitrate Negative (Negative) Urine Bilirubin Negative (Negative) Urine Urobilinogen 1.0 (<2.0) mg/dL Leukocyte Esterase Rfl Trace H (Negative) MARLIN/UL Urine RBC 0-2 (0-2) /hpf Urine WBC 6-10 H (0-3) /hpf Ur Squamous Epith Cells Moderate (Few) /hpf Urine Bacteria 2+ H /hpf Urine Casts 0-2 POC Urine HCG, Qual Negative (Negative) Urine Test Negative <Deena Mathew, FINANCIAL EXAMINER - Last Filed: 01/30/25 02:29> Lab Results 01/29/25 01/29/25 01/29/25 Range/Units 22:53 23:53 23:55 WBC 8.0 (4.5-10.0) K/mm3 RBC 4.40 (4.2-5.4) M/mm3 Hgb 13.9 D (12.0-15.0) g/dL Hct 41.6 (37.0-47.0) % MCV 94.5 (80-100) fl MCH 31.6 (26-34) pg MCHC 33.4 (32-36) g/dl RDW 12.1 (11.5-14.5) % Plt Count 297 D (150-375) k/mm3 MPV 9.2 (7.4-10.4) fl Immature Gran % (Auto) 0.3 (0-0.5) % Neut % (Auto) 52.0 (45.5-73.1) % Lymph % (Auto) 40.1 (18.3-44.2) % [place] % (Auto) 6.5 (2.6-8.5) % Eos % (Auto) 0.8 (0-4.4) % Baso % (Auto) 0.3 (0.2-1.2) % Lymph # (Auto) 3.20 (0.9-3.2) K/mm3 [place] # (Auto) 0.5 (0.1-0.6) K/mm3 Eos # (Auto) 0.1 (0-0.3) K/mm3 Baso # (Auto) 0.0 (0.0-0.1) K/mm3 Abs Immat Gran (auto) 0.02 (0.00-0.031) K/mm3 Absolute Neuts (auto) 4.2 (1.3-6.7) K/mm3 Absolute Nucleated RBC 0.000 (0.0-0.012) K/mm3 Nucleated RBC % 0.0 (0.0-0.2) % PT 12.8 (11.1-14.7) Seconds INR 1.0 APTT 28.0 (22.3-36.8) Seconds D-Dimer 0.68 H (<0.48) ug/mL Sodium 139 (137-145) mmol/L Potassium 3.7 (3.4-5.0) mmol/L Chloride 102 (98-107) mmol/L Carbon Dioxide 29 (22-30) mmol/L Anion Gap 8 (4-12) mmol/L BUN 17 (7-17) mg/dL Creatinine 0.80 (0.7-1.0) mg/dL Estim Creat Clear Calc 96 ml/min Estimated GFR > 60 (59 - ) Glucose 100 (65-110) mg/dL Calcium 9.4 (8.4-10.2) mg/dL Magnesium 2.2 (1.6-2.3) mg/dL Total Bilirubin 0.3 (0.2-1.3) mg/dL AST 37 H (14-36) U/L ALT 26 (6-35) U/L Alkaline Phosphatase 107 (38-126) U/L Troponin I < 0.012 (0.000-0.034) ng/mL Total Protein 7.5 (6.3-8.2) g/dL Albumin 4.5 (3.5-5.1) g/dL Urine Color Yellow (Yellow) Urine Appearance Cloudy H (Clear) Urine pH 7.0 (5.0-9.0) Ur Specific [place] 1.034 (1.001-1.035) Urine Protein Trace (Negative) mg/dL Urine Glucose (UA) Negative (Negative) mg/dL Urine Ketones Trace H (Negative) mg/dL Ur Blood (Man) Negative (Negative) Urine Nitrate Negative (Negative) Urine Bilirubin Negative (Negative) Urine Urobilinogen 1.0 (<2.0) mg/dL Leukocyte Esterase Rfl Trace H (Negative) MARLIN/UL Urine RBC 0-2 (0-2) /hpf Urine WBC 6-10 H (0-3) /hpf Ur Squamous Epith Cells Moderate (Few) /hpf Urine Bacteria 2+ H /hpf Urine Casts 0-2 POC Urine HCG, Qual Negative (Negative) Urine Test Negative <Michael Iraheta MD - Last Filed: 01/30/25 04:19> Discharge Plan Discharge Clinical Impression: Strain of lumbar region, Urinary tract infection, Cholelithiasis <Deena Mathew APRN - Last Filed: 01/30/25 02:29> Patient Disposition: Home <Deena Mathew APRN - Last Filed: 01/30/25 02:29> Condition: Stable <Deena Mathew APRN - Last Filed: 01/30/25 02:29> Instructions: Antibiotic Form, Back Pain (ED) <Deena Mathew APRN - Last Filed: 01/30/25 02:29> Additional Instructions: Please return to the ER with any worsening symptoms. Follow-up with primary care provider as soon as possible for further evaluation and treatment. Take all medications as prescribed, including regularly scheduled medications. Complete your full dose of antibiotics. You may take Tylenol and/or ibuprofen for pain control. <Deena Mathew APRN - Last Filed: 01/30/25 02:29> Patient Language: Czech <Deena Mathew APRN - Last Filed: 01/30/25 02:29> Prescriptions: New cephalexin 500 mg capsule 500 mg PO Q8H 7 Days Qty: 21 0RF No Action Classic 28 mg iron- 800 mcg tablet PO Slow Fe 137 mg (45 mg iron) tablet extended release 137 mg PO DAILY <Deena Mathew APRN - Last Filed: 01/30/25 02:29> Follow-up/Referrals: Edwardo Savage MD [Physician, General Surgery] - 1 Week Referral Note: Gallstones, flank pain Johnnie Steel MD [Primary Care Provider, Family Practice] <Deena Mathew APRN - Last Filed: 01/30/25 02:29>
[2025-01-29] MEDS: SODIUM CHLORIDE 0.9% IV 1,000 ML 999 ML IV CONT (22:50)
[2025-01-29 22:59] LABS: Hematocrit 41.6 % (37.0-47.0); Hemoglobin 13.9 g/dL (12.0-15.0); Immature Granulocyte Percent A 0.3 % (0-0.5); Lymphocytes Absolute Auto 3.20 K/mm3 (0.9-3.2); Mean Corpuscular HGB Conc 33.4 g/dl (32-36); Mean Corpuscular Hemoglobin 31.6 pg (26-34); Mean Corpuscular Volume 94.5 fl (80-100); Nucleated Red Blood Cells Absolute Auto 0.000 K/mm3 (0.0-0.012); Nucleated Red Blood Cells Perc 0.0 % (0.0-0.2); Platelet Count Result 297 k/mm3 (150-375); Red Blood Count 4.40 M/mm3 (4.2-5.4); White Blood Count 8.0 K/mm3 (4.5-10.0)
[2025-01-29 23:10] LABS: INR 1.0; Prothrombin Time 12.8 Seconds (11.1-14.7)
[2025-01-29 23:11] LABS: Partial Thromboplastin Time 28.0 Seconds (22.3-36.8)
[2025-01-29 23:17] LABS: Alanine Aminotransferase 26 U/L (6-35); Albumin Level 4.5 g/dL (3.5-5.1); Alkaline Phosphatase 107 U/L (38-126); Anion Gap 8 mmol/L (4-12); Aspartate Amino Transferase 37 U/L (14-36); Bilirubin,Total 0.3 mg/dL (0.2-1.3); Blood Urea Nitrogen 17 mg/dL (7-17); Calcium 9.4 mg/dL (8.4-10.2); Carbon Dioxide 29 mmol/L (22-30); Chloride 102 mmol/L (98-107); Estimated CRCL calculation 96 ml/min; Estimated Glomerular Filt Rate > 60; Glucose 100 mg/dL (65-110); Magnesium 2.2 mg/dL (1.6-2.3); Potassium 3.7 mmol/L (3.4-5.0); Sodium 139 mmol/L (137-145); Total Protein 7.5 g/dL (6.3-8.2)
[2025-01-29 23:24] LABS: Troponin I < 0.012 ng/mL (0.000-0.034)
[2025-01-29 23:57] LABS: BEDSIDEPREGUCG Negative (Negative)
[2025-01-30 00:01] LABS: Add Urine Microscopic? YES; Appearance Urine Cloudy (Clear); Glucose Urine UA Negative (Negative); Leukocyte Esterase Ur Trace LEU/UL (Negative); Nitrate Urine Negative (Negative); Non Pathogenic Casts 0-2; Specific Grav Ur 1.034 (1.001-1.035)
[2025-01-30 01:11] LABS: Pregnancy On Board Control Positive
[2025-01-30 01:52] VITALS: BP 108/67; PULSE 72; RESP 12; O2SAT 97
[2025-01-30] MEDS: CEPHALEXIN 500 MG CAPSULE PO (02:26)
[2025-01-30 04:50] VITALS: BP 122/72; PULSE 67; RESP 20; O2SAT 99
== END 2025-01-30 04:32 | disposition home or self-care (01) ==
PROVIDERS: Registered Nurse; Emergency Provider Emergency Medicine; PCP Family Medicine
DX: N39.0 Urinary tract infection, site not specified (principal); K80.20 Calculus of gallbladder without cholecystitis without obstruction; S39.012A Strain of muscle, fascia and tendon of lower back, initial encounter; X58.XXXA Exposure to other specified factors, initial encounter
CPT/HCPCS: 36415; 71046; 71275; 72131; 74177; 80053; 81001; 81025; 83735; 84484; 85025; 85380; 85610; 85730; 93005; 96360; 99284; A9270; J2270; J7030; Q9967

== ENCOUNTER 2025-03-05 10:58 | Outpatient (CLI) | payer OTHER, SELFPAY ==
--- OUTSIDE RECORDS SUMMARY | 2025-03-05 11:29 | XMS_ITS | Data Portability ---
Author Organization [facility] Address [address] [place] [address] Care Team Providers Care Bridge Rigger Name Role Phone LEO ZAMARRIPA Primary Care Provider Assessment Encounter Date Assessment Date Assessment LastModified by Organization Details LastModified Time 11/12/2024 11/12/2024 Patient is ___weeks . Discussed plan. [email or web address] Not available 11/12/2024 17:44:12 11/20/2024 11/20/2024 Patient is ___weeks . Discussed plan. [email or web address] Not available 11/20/2024 15:14:07 Plan of Treatment Reminders Order Date Submit Date Provider Last Modified By Organization Details Last Modified Time Details Appointments None recorded. Lab streptococc us group B, culture, unspecified specimen 2024 025 [facility] (Lab), [address], [place], [address], 15:56:27 Referral None recorded. Procedures None recorded. [...] t Abnor mal: Yes Resul jonathan Lab: [facility] [address] [facility] [address] Tel: CULTU RE ----- ----- ----- --- [...] beatris for these drugs . Not Available [facility] (Lab) [address], [place], [address], 11/08/2024 15:56:27 10/20/19 25 10/19/2024 US, obste tric, follo w-up No observ ation record ed. [email or web address] [place] [address], [place], [address], 10/19/2024 18:42:11 10/20/19 25 10/19/2024 , obste tric, follo w-up No observ ation record ed. [email or web address] Vivi [address], [place], [address], 10/21/2024 16:49:04 11/03/19 25 11/02/2024 US, obste tric, limit ed No observ ation record ed. [email or web address] [place] [address], [place], [address], 11/02/2024 18:27:07 08/18/20 25 11/02/2024 US, obste tric, limit ed No observ ation record ed. LESTER Trinidad [address], [place], [address], 11/02/2024 17:21:55 Result Notes None recorded. Problems Name Problem SNOMED Code Status Onset Date Resolution Date Notes Provider Name and Address Organization Details Recorded Time Complete Completed 201209/12/2020 Legally unspecif ied , complete , without mention of complica tion;Rec orded Elsewher e: No Locat ion: [facility] S ource: EHR Treasury Agent june: N Ken ce ID: 0001 Miko lable Time: 06:30:00 PM Gracy [facility] 16:59:22 Primigra james [id number] Completed 201209/12/2020 Supervis ion of normal first pregnanc y;Record ed Elsewher e: No Locat ion: [facility] S ource: EHR Treasury Agent june: N Ken ce ID: 0001 Miko lable Time: 05:15:00 PM Gracy Mireles [facility] 1 17:00:04 Pregnanc y test positive [id number] Completed 201209/12/2020 Pregnanc y examinat ion or test, positive result;R ecorded Elsewher e: No Locat ion: [facility] S ource: EHR Treasury Agent june: N Donnellti ce ID: 0001 Miko lable Time: 05:15:00 PM Gracy Mireles [facility] 1 17:00:00 Ultrason ography Completed 201209/12/2020 Antenata l screenin g for malforma tion using ultrason ics;Rich rded Elsewher e: No Locat ion: [facility] S ource: EHR Treasury Agent june: N Donnellti ce ID: 0001 Miko lable Time: 04:30:00 PM Gracy Mireles null, [facility] 1 17:00:21 Antenata l screenin g Completed 201209/12/2020 Antenata l screenin g for malforma tion using ultrason ics;Rich rded Elsewher e: No [facility]: [facility] Treasury Agent june: N Practi ce ID: 0001 Miko lable Time: 04:30:[address] [facility] 16:59:17 Congenit al malforma tion [id number] Completed 201209/12/2020 Antenata l screenin g for malforma tion using ultrason ics;Rich rded Elsewher e: No Locat ion: [facility] S ource: EHR Treasury Agent june: N Practi ce ID: 0001 Miko lable Time: 04:30:[address] [facility] 1 16:59:24 Trauma to perineum and/or vulva during delivery [id number] Completed 201309/12/2020 Unspecif ied trauma to perineum and vulva, unspecif ied as to episode of care in pregnanc y;Record ed Elsewher e: No Locat ion: [facility] S ource: EHR Treasury Agent june: N Practi ce ID: 0001 Miko lable Time: 11:30:[address] [facility] 1 17:00:18 Routine antenata l care Completed 201309/12/2020 Supervis ion of other normal pregnanc y;Practi ce ID: [address] [facility] 17:00:05 Excessiv e growth affectin g manageme nt of mother [id number] Completed 201309/12/2020 Excessiv e growth, affectin g manageme nt of mother, antepart um;Recor ded Elsewher e: No [facility]: EHR Treasury Agent june: N Ken ce ID: 0001 Miko lable Time: 04:00:00 PM Gracy Mireles [facility] 16:59:39 Delivery normal [id number] Completed 201309/12/2020 Normal delivery ;Practic e ID: 0001 Gracy Mireles [facility], [facility] 16:59:37 Single live from singleto n pregnanc y [id number] Completed 201309/12/2020 Mother with single liveborn ;Practic e ID: 0001 Gracy Mireles [facility], [facility] 17:00:10 Pregnanc y test negative [id number] Completed 201309/12/2020 Pregnanc y examinat ion or test, negative result;R ecorded Elsewher e: No Locat ion: [facility] N Ken ce ID: 0001 Miko lable Time: 10:30:00 AM Gracy Mireles [facility] 16:59:59 Postpart um care Completed 201309/12/2020 Post Followup ;Recorde d Elsewher e: No Locat ion: [facility] june: N Ken ce ID: 0001 Miko lable Time: 10:30:00 AM Gracy Mireles [facility] 16:59:55 Menstrua tion finding Completed 201309/12/2020 Menometr orrhagia ;Recorde vini Elsewher e: No Locat ion: [facility] S ource: [facility] june: N Ken ce ID: 0001 Miko lable Time: 09:00:00 AM Gracy Mireles [facility] 16:59:49 Postoper ative follow-u p visit Completed 201309/12/2020 Follow-u p examinat ion, followin g unspecif ied surgery; Recorded Elsewher e: No Locat ion: [facility] S ource: EHR Treasury Agent june: N Practi ce ID: 0001 Miko lable Time: 04:30:00 PM Gracy Mireles [facility] 16:59:54 Amenorrh ea [id number] Completed 201309/12/2020 Amenorrh ea;Recor ded Elsewher e: No Locat ion: [facility] S ource: EHR [facility] june: N Practi ce ID: 0001 Miko lable Time: 04:00:00 PM Gracy Mireles [facility] 16:59:15 Vaginiti s and vulvovag initis Completed 201309/12/2020 Vaginiti s and vulvovag initis, unspecif ied;Rich rded Elsewher e: No [facility]: [facility] june: N Practi ce ID: 0001 Miko lable Time: 04:00:00 PM Gracy Mireles [facility] 17:00:22 Speciali zed medical examinat ion Completed 201309/12/2020 ROUTINE CHAR PULLER EXAMINAT ION;Rich rded Elsewher e: No [facility]: EHR Treasury Agent june: N Practi ce ID: 0001 Miko lable Time: 04:00:00 PM Gracy Mireles [facility] 17:00:15 Overweig ht [id number] Completed 201309/12/2020 Overweig ht;Recor ded Elsewher e: No Locat ion: [facility] S ource: EHR Treasury Agent june: N Practi ce ID: 0001 Miko lable Time: 04:00:00 PM Gracy Mireles [facility] 16:59:52 Speciali zed medical examinat ion Completed 201409/12/2020 Other specifie d chlamydi al diseases ;Recorde d Elsewher e: No Locat ion: [facility] S ource: EHR Treasury Agent june: N Practi ce ID: 0001 Miko lable Time: 05:15:00 PM Gracy Mireles [facility] 17:00:16 Venereal disease screenin g Completed 201409/12/2020 Screenin g examinat ion for venereal disease; Recorded Elsewher e: No Locat ion: [facility] S ource: EHR Treasury Agent june: N Practi ce ID: 0001 Miko lable Time: 05:15:00 PM Gracy Mireles [facility] 17:00:25 Leukorrh ea [id number] Completed 201409/12/2020 Leukorrh ea, not specifie d as infectiv e;Record ed Elsewher e: No Locat ion: [facility] S ource: EHR Treasury Agent june: N Practi ce ID: 0001 Miko lable Time: 05:15:00 PM Gracy Mireles [facility] 16:59:45 Acute vaginiti s [id number] Completed 201509/12/2020 Acute vaginiti s;Record ed Elsewher e: No Locat ion: [facility] S ource: EHR Treasury Agent june: N Practi ce ID: 0001 Miko lable Time: 02:30:00 PM Gracy Mireles [facility] 16:59:14 Hemorrho ids [id number] Completed 201509/12/2020 Hemorrho id;Recor ded Elsewher e: No Locat ion: [facility] S ource: EHR Treasury Agent june: N Practi ce ID: 0001 Miko lable Time: 02:30:00 PM Gracy Mireles [facility] 16:59:[address] Concept Completed 201509/12/2020 Encntr for general adult medical exam w/o abnormal findings ;Recorde d Richelle e: No Locat ion: [facility] S ource: EHR Treasury Agent june: N Practi ce ID: 0001 Miko lable Time: 10:30:00 AM Gracy dang, [facility] 17:00:12 Pregnanc y detectio n examinat ion Completed 201609/12/2020 Encounte r for pregnanc y test, result positive ;Recorde d Richelle e: No Locat ion: [facility] S ource: EHR Treasury Agent june: N Practi ce ID: 0001 Miko lable Time: 09:45:00 AM Gracy dang, [facility] 16:59:57 Secondar y amenorrh ea [id number] Completed 201609/12/2020 Secondar y amenorrh ea;Pract ice ID: 0001 Gracy dang, [facility] 17:00:08 Normal pregnanc y in multigra james [id number] 4106 Completed 201609/12/2020 Encounte r for supervis ion of other normal pregnanc y, 2nd trimeste r;Record ed Elsewher e: No Locat ion: [facility] S ource: EHR Treasury Agent june: N Practi ce ID: 0001 Miko lable Time: 08:30:[address] [facility] 16:59:50 Prematur e rupture of membrane s [id number] Completed 201609/12/2020 Full-ter m epi ROM, unsp time betw rupture and onset labor;Pr actice ID: 0001 Gracy dang, [facility] 17:00:02 Lacerati on of female perineum Completed 201609/12/2020 First degree perineal lacerati on during delivery ;Practic e ID: 0001 Gracy Mireles [facility] 16:59:44 Gestatio n period, 39 weeks [id number] Completed 201609/12/2020 39 weeks gestatio n of pregnanc y;Practi ce ID: 0001 Gracy Mireles [facility] 16:59:40 Lochia finding Completed 201609/12/2020 Encounte r for routine postpart um follow-u p;Record ed Elsewher e: No Locat ion: [facility] S ource: EHR Treasury Agent june: N Practi ce ID: 0001 Miko lable Time: 09:45:00 AM Gracy Mireles [facility] 16:59:47 Uses combined oral contrace ption [id number] Completed 201709/12/2020 Encounte r for initial prescrip tion of contrace ptive pills;Re corded Elsewher e: No Locat ion: [facility] S ource: EHR Treasury Agent june: N Practi ce ID: 0001 Miko lable Time: 10:15:00 AM Gracy Mireles [facility] 16:59:20 Body mass index 25-29 - overweig [id number] Completed 201709/12/2020 Body mass index (BMI) 28.0-28. 9, adult;Re corded Elsewher e: No Locat ion: [facility] S ource: EHR Treasury Agent june: N Practi ce ID: 0001 Miko lable Time: 10:15:00 AM Gracy Mireles [facility] 16:59:19 Screenin g for malignan t neoplasm of cervix Completed 201709/12/2020 Screenin g for malignan t neoplasm s of the cervix;R ecorded Elsewher e: No Locat ion: Maribel mil[facility] S ource: EHR Treasury Agent june: N Practi ce ID: 0001 Miko lable Time: 10:15:00 AM Gracy Mireles [facility] 17:00:[address] Concept Completed 201809/12/2020 Encntr for sand technologist exam (general ) (routine ) w/o abn findings ;Recorde d Elsewher e: No Locat ion: [facility] S ource: EHR Treasury Agent june: N Practi ce ID: 0001 Miko lable Time: 11:15:00 AM Gracy Mireles [facility] 17:00:13 Pregnanc y [id number] Completed 202412/29/2024 Christina Osorio [facility] 5 10:32:08 Multigra james of advanced maternal age [id number] Completed 2024 Kim Getachew [facility] 5 14:42:40 Problem Notes None recorded. Procedures Surgical History Date Name Laterality Status Provider Name and Address Organization Details Recorded Time 09/13/19 21 Date of Last Pap Smear completed Norma Freeman [facility] 12/03/2023 17:17:36 03/18/19 14 Hysteroscopy completed Gracy Mireles [facility] 09/12/2020 17:03:41 Imaging Results [...] Elsewher e: Yes Loca tion: Denisemattdeb abbott [facility] odify By: ary marin DateTime : [...] Elsewher e: Yes Loca tion: Pedro Luis [facility] odify By: justina mendoza DateTime : 09/01/19 14 10:30:00 AM Not Available Not Available Not Available prednison e 50 mg tablet TAKE 1 TABLET BY MOUTH DAILY 05/06 completed Not Available Not Available Not Available Vitamin D2 1,250 mcg (50,000 unit) capsule take 1 capsule ([id number] ITS) by oral route every week 08/31 completed Prescrib ed Elsewher e: No Locat ion: Deniserachele milena [facility] odify By: [email or web address] trick En counter DateTime : 01/29/20 13 11:56:09 AM Not Available Not Available Not Available norethind lisa (contrace ptive) 0.35 mg tablet take 1 tablet by oral route every day 12/16 completed Prescrib ed Elsewher e: No Locat ion: Pedro Luis milena [facility] odify By: justina [address] ncounter DateTime : 09/01/19 14 10:30:00 AM Not Available Not Available Not Available sertralin e 20 mg/mL oral concentra te 04/18 completed Prescrib ed Elsewher e: Yes Loca tion: Pedro Luis abbott [facility] odify By: [email or web address] Encount er DateTime : 07/06/19 16 02:30:00 [...] e: No Locat ion: Pedro Luis abbott [facility] odify By: justina Abbott ncounter DateTime : 10/23/19 14 09:00:00 AM Not Available Not Available Not Available erythromy michel with ethanol 2 % topical gel apply by topical route 2 times every day a thin layer to the affected area(s) in the morning and evening 01/27 completed Prescrib ed Elsewher e: No Locat ion: Pedro Luis abbott [facility] odify By: parag Abbott ncounter DateTime : 01/29/20 13 11:56:09 AM Not Available Not Available Not Available Duac 1.2 % (1 % base)-5 % topical gel apply by topical route 2 times every day to the affected area(s) in the morning and evening 12/16 completed Prescrib ed Elsewher e: Yes [facility] By: ary marin DateTime : 10/29/19 [...] e: No Locat ion: Pedro Luis abbott [facility] odify By: alonso mendoza DateTime : 12/17/19 13 05:15:00 PM Not Available Not Available Not Available 28 mg iron-800 mcg tablet 07/19 completed Prescrib ed Elsewher e: Yes Loca tion: [facility] odify By: Encount er DateTime : 04/18/19 19 11:15:00 AM Not Available Not Available Not Available One Daily 27 mg iron-800 mcg tablet take 1 tablet by oral route every day 06/30 completed Prescrib ed Elsewher e: Yes [facility]oca [facility] By: parag mendoza DateTime : 01/28/20 14 04:00:00 PM Not Available Not Available Not Available Anusol-HC 2.5 % topical cream with perineal applicato r apply by topical route 2 times every day to the affected area(s) 08/01 completed Prescrib ed Elsewher e: No [facility] By: ivy Heredia r DateTime : 07/06/19 16 02:30:00 PM Not Available Not Available Not Available Vitals Date Recorded Body height Body mass index (BMI) Body weight Systolic And Diastolic Provider Name and Address Organization Details Last Updated DateTime 11/04/2024 163.2 cm 37.8 kg/m2 542566.79 g 132/84 mm[Hg] Maddie Brandon [facility] 11/04/2024 16:27:37 Date Recorded Body weight Systolic And Diastolic Provider Name and Address Organization Details Last Updated DateTime 11/12/2024 30461.3214 g 117/80 mm[Hg] Morelia Jacques [facility] 11/12/2024 17:44:46 Date Recorded Body height Body mass index (BMI) Body weight Systolic And Diastolic Provider Name and Address Organization Details Last Updated DateTime 11/20/2024 163.2 cm 37.8 kg/m2 965596.51 g 134/85 mm[Hg] Cinthia Castillo [facility] 11/20/2024 15:15:30 Date Recorded Body height Body mass index (BMI) Body weight Systolic And Diastolic Provider Name and Address Organization Details Last Updated DateTime 11/27/2024 163.2 cm 37.1 kg/m2 93488.14 g 138/83 mm[Hg] Christina [facility] 11/27/2024 16:59:42 Date Recorded Body height Body mass index (BMI) Body weight Systolic And Diastolic Provider Name and Address Organization Details Last Updated DateTime 12/29/2024 163.2 cm 33.2 kg/m2 24431.51 g 111/76 mm[Hg] Christina [facility] 12/29/2024 10:30:01 Social History Question Answer Notes LastModified by Organizat ion Details LastModified Time Do You Have An Advance Directive? No [email or web address] Information n ot available 11/04/2024 How Many Years Have You Consumed Alcohol? 4 [email or web address] Information not available 11/04/2024 Are You Blind Or Do You Have Difficulty Seeing? No [email or web address] Information not available 11/04/2024 What Is Your Level Of Caffeine Consumption? Moderate [email or web address] Information not available 11/04/2024 How Much Tobacco Do You Chew? None [email or web address] Information not available 11/04/2024 In The 14 Days Before Symptom Onset, Have You Had Close Contact With A Laboratory-confirme d COVID-19 While That Case Was Ill? No [email or web address] Information n ot available 11/04/2024 In The 14 Days Before Symptom Onset, Have You Had Close Contact With A Person Who Is Under Investigation For COVID-19 While That Person Was Ill? No [email or web address] Information not available 11/04/2024 Have You Been To An Area Known To Be High Risk For COVID-19? No [email or web address] Information not available 11/04/2024 Are You Deaf Or Do You Have Serious Difficulty Hearing? No [email or web address] Information not available 11/04/2024 What Type Of Diet Are You Following? REGULAR [email or web address] Information n ot available 11/04/2024 What Is The Highest Grade Or Level Of School You Have Completed Or The Highest Degree You Have Received? [id number] [email or web address] Information not available 11/04/2024 Are There Any Guns Present In Your Home? No [email or web address] Information not available 11/04/2024 Do You Use Protection During Sex? No [email or web address] Information not available 11/04/2024 Do You Use Your Seat Belt Or Car Seat Routinely? Yes [email or web address] Information not available 11/04/2024 Do You Have Smoke And Carbon Monoxide Detectors In Your Home? Yes [email or web address] Information not available 11/04/2024 How Much Tobacco Do You Smoke? No [email or web address] Information not available 11/04/2024 Do You Use Sunscreen Routinely? Yes [email or web address] Information not available 11/04/2024 Have You Used IV Drugs? No [email or web address] Information not available 11/04/2024 Do You Have Difficulty Walking Or Climbing Stairs? No Information not available 05/30/2022 Sex: Unknown Functional Status Question Answer Note LastModified by Organizat ion Details LastModified Time Do you use any illicit or recreational drugs? No [email or web address] Information not available 11/04/2024 What is your level of alcohol consumption? Occasional [email or web address] Information not available 11/04/2024 Are you able to walk independently without assistance or assistive devices? YESWOREST Information not available 11/04/2024 Are you able to care for yourself independently? 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 No Information not available 05/30/2022 What is your exercise level? Occasional [email or web address] Information not available 11/04/2024 Mental Status Question Answer Note LastModified by Organization D etails LastModified Time Do you feel stressed (tense, restless, nervous, or anxious, or unable to sleep at night)? [id number] [email or web address] Information not available 11/04/2024 Family History Relationship Description Onset Age of this Age Resolved Age Notes LastModified by Organization Details LastModified Time Maternal Grandmother Malignant neoplasm of stomach [email or web address] Not available 2024 10:21:44 Father Atrial fibrillation [email or web address] Not available 10:21:44 Father Cerebrovascu lar accident Not available 16:23:20 Father Hypertensive disorder Not available 2024 16:23:20 Sister Malignant neoplasm of breast [email or web address] Not available 05/16 13:00:13 Mother Asthma Not available 11/04/2024 16:23:20 Maternal Grandfather Malignant neoplasm of colon [email or web address] Not available 2024 16:23:20 Paternal Grandmother Malignant neoplasm of breast Not available 2024 16:23:20 Medical History Condition [...] ICD10 Code Diagnosis IMO Codes Diagnosis Note [id number] Naeem Sebastian MD [place] [address] [address] 09/12/2020 16:45:57 09/12/2020 17:58:14 Venereal disease screening 112130461 Z11.3 Gynecologi c examination 67421190 Z01.419 This patient is here for her annual exam. A thorough history was taken. A physical exam was performed. Age appropriat e routine health screening was ordered, performed, and discussed. Recommende d testing was ordered. She was asked to follow up in one year. She will be informed of any test results. Pap - today Bacterial vaginosis 4197 41244 N76.0 [id number] [facility] [address],[place] [address] 07/19/2021 17:00:09 07/19/2021 17:51:58 Vaginitis 16091347 N76.0 Recurrent vaginal itching (??infecti on).Hx of [...] counseling and review of plan of care. [id number] BESSIE Frazier [place] [address],[place] [address] 05/30/2022 12:38:55 05/30/2022 14:34:10 Gynecologic examination 19393703 Z01.419 Take Calcium with Vitamin D 1200mg [...] needed Family his tory of breast cancer 044794687 Z80.3 [id number] VALERIO EID MD [place] [address] [address] 12/03/2023 16:54:39 12/03/2023 18:03:47 Mass of right breast [id number] N63.10 - small 0.5cm lump at edge of R areola- likely benign however given sister's hx of breast cancer at age 30, will evaluate with imaging [id number] Naeem Sebastian MD [place] [address],[place] [address] 04/30/2024 13:54:28 04/30/2024 14:42:40 [id number] VALERIO EID MD [place] [address],[place] [address] 05/06/2024 15:46:20 05/06/2024 16:35:45 test positive 267797819 Z32.01 1. Exam today within normal limits.2. [...] 10 weeks, orders given today. screening 2437 26802 Z36.0 Genetic in vestigation procedure 35850805 Z31.430 [id number] Naeem Sebastian MD [place] [address],[place] [address] 06/02/2024 17:30:13 06/03/2024 08:38:33 screening 609724882 Z36.82 Z3A.14 [id number] VALERIO EID MD [place] [address],[place] [address] 06/02/2024 17:30:45 06/05/2024 10:27:36 Candidiasis of vagina 54019052 B37.31 Routine an tenatal care 541703245 Z34.01 [id number] Naeem Sebastian MD [place] [address],[place] [address] 07/01/2024 16:13:00 07/01/2024 16:59:51 [id number] MD Katie Deal [address],[place] [address] 07/20/2024 17:01:24 07/21/2024 08:15:13 care status [id number] Z34.82 [id number] MD Katie Deal [address],[place] [address] 07/20/2024 17:01:48 07/21/2024 08:14:08 screening for malformation [id number] Z36.3 Z3A.20 [id number] MD Katie Deal [address],[place] [address] 08/21/2024 09:42:34 08/21/2024 10:52:54 care status 001058766 Z34.82 [id number] MD Katie Deal [address],[place] [address] 09/21/2024 10:18:37 09/21/2024 11:17:47 care status 214716535 Z34.83 [id number] MD Katie Deal [address],[place] [address] 10/05/2024 16:59:47 10/05/2024 18:02:39 care status 429475371 Z34.83 [id number] MD Katie Deal [address],[place] [address] 10/19/2024 10:00:38 10/19/2024 10:55:03 Multigravida of advanced maternal age 405636709 O09.523 O26.843 Z3A.33 4114062 [id number] MD Katie Deal [address],[place] [address] 10/19/2024 10:07:31 10/20/2024 05:37:26 care status 157930577 Z34.83 [id number] VALERIO EID MD [place] [address],[place] [address] 11/02/2024 16:24:55 11/02/2024 16:55:46 Breech presentation 6666549 O32.1XX0 Z3A.35 [id number] VALERIO EID MD [place] [address],[place] [address] 11/04/2024 16:14:38 11/04/2024 16:52:44 Multigravida of advanced maternal age 108849006 O09.522 74485483 Gestation period, 35 weeks 53113058 Z3A.35 0879310 screening 2437 85194 Z36.85 [id number] Naeem Sebastian MD [place] [address],[place] [address] 11/12/2024 16:53:33 11/13/2024 09:18:51 care status 032111444 Z34.83 [id number] VALERIO EID MD [place] [address],[place] [address] 11/20/2024 14:46:58 11/20/2024 15:30:11 Multigravida of advanced maternal age 302819860 O09.523 22838118 Gestation period, 37 weeks 65867198 Z3A.37 8898021 [id number] VALERIO EID MD [place] [address],[place] [address] 11/27/2024 16:51:55 11/27/2024 17:51:25 care status 090392484 Z34.83 [id number] VALERIO EID MD [place] [address],[place] [address] 12/29/2024 10:17:39 12/29/2024 10:52:10 state 65439330 Z39.2 [id number] S/p 4 weeks ago here today for [...] Member ID Guarantor Name 01/28/2025 2 R [id number] Graham Kinney [id number] Violetta Nirmal 05/28/2022 1 [employer] [id number] Graham Kinney [id number] Violetta Nirmal 11/27/2024 1 [employer] [id number] Violetta Kinney [id number] Violetta Nirmal 01/28/2025 1 [facility] [id number] Violetta Abbott Nirmal [id number] Violetta Nirmal 11/27/2024 1 [facility] [id number] Violetta E Nirmal [id number] Violetta Nirmal Notes Date Note Type Note Provider Name and Address Organization Details Recorded Time 11/04/2024 text/html Generic HPI TemplateReported by Patient Maddie dang, [facility] 11/04/2024 16:56:16 11/12/2024 text/html Generic HPI TemplateReported by Patient Naeem Sebastian MD [address], [place], [address], [facility] 11/12/2024 18:01:29 11/20/2024 text/html Generic HPI TemplateReported by Patient VALERIO EID MD [address], [place], [address], [facility] 11/20/2024 15:29:32 11/27/2024 text/html Generic HPI TemplateReported by Patient VALERIO EID MD [address], [place], [address], [facility] 11/27/2024 17:18:08 12/29/2024 text/html VisitReported [...] considering vasectomy. Christina dang, [facility] 12/29/2024 10:52:46 OBGyn Episode Ob Episode Information Episode Created Date Number of Fetuses Patient Bloodtype Patient rh Status Prepregnancy Weight lbs Domestic Partner Domestic Partner Phone Father Name [employer] Status 09/13/19 21 1 CLOSED Fetus Data First Name Last Name Admitted to NICU Weight (g) Sex Living Outcome Pediatric Complications Fetus ID Race Codes Race Delivery Type F Full Term 37407 Vaginal Delivery Rogelio Calculation Initial Rogelio Date [...] Partner Domestic Partner Phone Father Name [employer] Status 09/13/19 21 1 CLOSED Fetus Data First Name Last Name Admitted to NICU Weight (g) Sex Living Outcome Pediatric Complications Fetus ID Race Codes Race Delivery Type F Full Term 01017 Vaginal Delivery Rogelio Calculation Initial Rogelio Date [...] Partner Domestic Partner Phone Father Name [employer] Status 06/03/19 25 1 A Positive 203 CLOSED Fetus Data First Name Last Name Admitted to NICU Weight (g) Sex Living Outcome Pediatric Complications Fetus ID Race Codes Race Delivery Type Tonja dominique false 3912.23 1 M true Full Term 53684 Vaginal Delivery Problems Problem Notes Problem Name Start Date End Date Resolution Snomed Code Not e Multigravida of advanced maternal age 0508/06/2024 [id number] Rogelio Calculation Initial Rogelio Date Initial Exam [...] 07/21/19 25 20 06/02/2024 12/06/19 25 4 Pre-geni Flowsheet Flowsheet [...] Weight in lbs Pre/Post Dialysis Refused Weight 204.222716853353 BP Diastolic BP Location Tested BP Systolic BP Type 75 L arm 123 sitting Fetus Heart Rate Present A 158 Fetus Movement A No Comments Patient presents to [facility]. Hx of 2 uncomplicated SVDs. otherwise uncomplicated. No nausea or cramping. NT/NB wnl today, LR male NIPT! New OB labs also wnl. RTC 4 weeks for routine care. Flowsheet Date 07/01/2024 Sarmiento Score Blood Edema Fundus Height Fundus Units Glucose Ketones Leukocytes Nitrite Labor Signs Protein Cervic Dilation Cervic Effacement Cervic Station Type Weight in lbs Pre/Post Dialysis Refused Weight 207.161646257414 BP Diastolic BP Location Tested BP Systolic [...] Weight in lbs Pre/Post Dialysis Refused Weight 209.746601319585 BP Diastolic BP Location Tested BP Systolic [...] Weight in lbs Pre/Post Dialysis Refused Weight 210.318431622428 BP Diastolic BP Location Tested BP Systolic [...] Weight in lbs Pre/Post Dialysis Refused Weight 211.647297152714 BP Diastolic BP Location Tested BP Systolic [...] Type Weight in lbs Pre/Post Dialysis Refused 213.827208059664 BP Diastolic BP Location Tested BP Systolic [...] Type Weight in lbs Pre/Post Dialysis Refused 168.405498059059 BP Diastolic BP Location Tested BP Systolic [...] Weight in lbs Pre/Post Dialysis Refused Weight 221.837951038251 BP Diastolic BP Location Tested BP Systolic [...] Type Weight in lbs Pre/Post Dialysis Refused 220.277978082813 BP Diastolic BP Location Tested BP Systolic [...] Weight in lbs Pre/Post Dialysis Refused Weight 222.0614148027 BP Diastolic BP Location Tested BP Systolic [...] Weight in lbs Pre/Post Dialysis Refused Weight 218.539054204090 BP Diastolic BP Location Tested BP Systolic [...] Weight in lbs Pre/Post Dialysis Refused Weight 195.744136162803 BP Diastolic BP Location Tested BP Systolic [...]
--- OUTSIDE RECORDS SUMMARY | 2025-03-05 11:29 | XMS_ITS | Clinical Summary ---
Author Organization [facility] Address [address] [place] [address] Care Team Providers Care Surface Plate Inspector Name Role Phone Johnnie Steel MD Primary Care Provider [phone] Source Comments [facility],non-owned Affiliates and Associated Physician Practices is amultiple site organization consisting of ambulatory clinics and hospital sitesin [place], [place], [place] and [place]. This disclosure is being madepursuant to the Care Everywhere program and may not contain all information available regarding this patient. Last updated 17.[facility] Allergies No known active allergies Medications * [...] DEPRESSION SCREENING 03/18/2024 COVID-19 VACCINE (1 - 2024-2 6 season) 2024 INFLUENZA VACCINE (#1) 2024 ZOSTER [...] age to complete this topic Care Teams Surface Plate Inspector Relationship Specialty Start Date End Date Johnnie Steel MD [address] [place] [id number] PCP - General Family Medicine 11/06/17
--- OUTSIDE RECORDS SUMMARY | 2025-03-05 11:29 | XMS_ITS | Continuity of Care Document ---
Author Organization [facility] Address [address] [place] [address] Care Team Providers Care Wax Specialist Name Role Phone PETRONAZAKI LEO Primary Care [...] urine Amphetamines : negati ve Not Available [facility] [address], [place], [address], 06/03/2024 17:47:42 06/04/19 25 06/03/2024 drug scree n, urine Cannabinoids : negati ve Not Available [facility] [address], [place], [address], 06/03/2024 17:47:42 06/04/19 25 06/03/2024 drug scree n, urine Cocaine: negati ve Not Available [facility] [address], [place], [address], 06/03/2024 17:47:42 06/04/19 25 06/03/2024 drug scree n, urine Opiates: negati ve Not Available [facility] [address], [place], [address], 06/03/2024 17:47:42 06/04/19 25 06/03/2024 drug scree n, urine Phenocyclidi ne: negati ve Not Available [facility] [address], [place], [address], 06/03/2024 17:47:42 06/04/19 25 06/03/2024 drug scree n, urine Barbiturates : negati ve Not Available [facility] [address], [place], [address], 06/03/2024 17:47:42 06/04/19 25 06/03/2024 drug scree n, urine Benzodiazepi romina: negati ve Not Available [facility] [address], [place], [address], 06/03/2024 17:47:42 06/04/19 25 06/03/2024 drug scree n, urine Ethanol: negati ve Not Available [facility] [address], [place], [address], 06/03/2024 17:47:42 06/04/19 25 06/03/2024 drug scree n, urine Hallucinogen s: negati ve Not Available [facility] [address], [place], [address], 06/03/2024 17:47:42 06/04/19 25 06/03/2024 drug scree n, urine Inhalants: negati ve Not Available [facility] [address], [place], [address], 06/03/2024 17:47:42 06/04/19 25 06/03/2024 drug scree n, urine Anabolic Steroids: negati ve Not Available [facility] [address], [place], [address], 06/03/2024 17:47:42 09/22/1909/21/2024 HEMAT OCRIT (HCT) HCT 32.3 % (based on docume nted legal sex) 34.0-4 5.0 low Not Available [facility] (Lab) [address], [place], [address], 09/22/2024 12:01:19 09/22/19 25 09/21/2024 HEMOG LOBIN (HGB) HGB 10.4 g/dL (based on docume nted legal sex) 11.6-1 5.4 low Not Available [facility] (Lab) [address], [place], [address], 09/22/2024 12:01:20 09/22/19 25 09/21/2024 GTT - GESTA JULIUS L GARFIELD Beltrán, ACOG OB glucose, 1 hour screen 146 mg/dL 70-135 high Not Available [facility] (Lab) [address] [place], [address], 09/22/2024 12:01:20 09/22/19 25 09/21/2024 HIV 1/2 ANTIG EN/AN TIBOD Y, REFLE X CONFI RMATI ON HIV antigen/anti body Nonrea ctive nonrea ctive HIV-1 antig en and HIV-1 /HIV- 2 antib odies were not detec greta. No labor atory evide nce of HIV infec tion. Not Available [facility] (Lab) [address], [place], [address], 09/22/2024 12:01:21 09/22/19 25 09/21/2024 RPR SCREE N, REFLE X TITER /CONF IRMAT ION RPR qualitative Nonrea ctive nonrea ctive Not Available [facility] (Lab) [address] [place], [address], 09/22/2024 12:01:21 09/29/1909/28/2024 GTT - GESTA JULIUS L, 3 HOUR, ACOG glucose, fasting acog 84 mg/dL 70-94 Not Available [facility] (Lab) [address] [place], [address], 09/29/2024 03:44:44 09/29/19 25 09/28/2024 GTT - GESTA JULIUS L, 3 HOUR, ACOG glucose, 1 hour acog 181 mg/dL 70-179 high Not Available [facility] (Lab) [address] [place], [address], 09/29/2024 03:44:44 09/29/19 25 09/28/2024 GTT - GESTA JULIUS L, 3 HOUR, ACOG glucose, 2 hour acog 150 mg/dL 70-154 Not Available [facility] (Lab) [address] [place], [address], 09/29/2024 03:44:44 09/29/19 25 09/28/2024 GTT - GESTA JULIUS L, 3 HOUR, ACOG glucose, 3 hour acog 127 mg/dL 70-139 Not Available [facility] (Lab) [address] [place], [address], 09/29/2024 03:44:44 11/05/19 25 11/04/2024 CULTU RE: GROUP B STREP SCREE N, REFLE X SUSCE PTIBI LITY result report SEE RESULT S BELOW abnormal Test: Cultu re: Group B Strep , Refle x Susce ptibi lity ([facility] ) Speci men Sourc e: Vagin a/Rec angelique Speci men Type: Vagin al/Re ctal Speci men Date: 2024 1702 Resul t Date: 2024 1453 Resul t Statu s: Final resul t Abnor mal: Yes Resul kaisag Lab: [facility] [address] [address] Tel: CULTU RE ----- ----- ----- --- [...] beatris for these drugs . Not Available [facility] (Lab) [address], [place], [address], 11/08/2024 15:56:27 06/03/19 25 06/02/2024 US, obste tric, nucha l trans lucen cy No observ ation record ed. [email or web address] [address] [address], [place], [address], 06/02/2024 22:49:25 06/03/19 25 06/02/2024 US, obste tric, nucha l trans lucen cy No observ ation record ed. [email or web address] [facility] [address], [place], [address], 06/02/2024 18:53:48 07/21/19 25 07/20/2024 US, obste tric, 2nd or 3rd trime ster No observ ation record ed. [email or web address] [facility] [address], [place], [address], 07/20/2024 18:43:23 07/21/19 25 07/20/2024 US, obste tric, follo w-up No observ ation record ed. [email or web address] [facility] [address], [place], [address], 08/06/2024 14:42:59 10/20/19 25 10/19/2024 US, obste tric, follo w-up No observ ation record ed. [email or web address] [facility] [address], [place], [address], 10/19/2024 18:42:11 10/20/19 25 10/19/2024 US, obste tric, follo w-up No observ ation record ed. [email or web address] [facility] [address], [place], [address], 10/21/2024 16:49:04 11/03/19 25 11/02/2024 US, obste tric, limit ed No observ ation record ed. [email or web address] [facility] [address], [place], [address], 11/02/2024 18:27:07 11/03/19 25 11/02/2024 , obste tric, limit ed No observ ation record ed. LESTER [facility] [address], [place], [address], 11/02/2024 17:21:55 Result Notes None recorded. Problems Name Problem SNOMED Code Status Onset Date Resolution Date Notes Provider Name and Address Organization Details Recorded Time Complete Completed 201209/12/2020 Legally unspecif ied , complete , without mention of complica tion;Rec orded Elsewher e: No Locat ion: [facility] S ource: EHR Manager Communication june: N Ken ce ID: 0001 Miko lable Time: 06:30:00 PM Gracy Mireles [facility] 16:59:22 Primigra james [id number] Completed 201209/12/2020 Supervis ion of normal first pregnanc y;Record ed Elsewher e: No Locat ion: [facility] S ource: EHR Manager Communication june: N Ken ce ID: 0001 Miko lable Time: 05:15:00 PM Gracy Mireles [facility] 1 17:00:04 Pregnanc y test positive [id number] Completed 201209/12/2020 Pregnanc y examinat ion or test, positive result;R ecorded Elsewher e: No Locat ion: [facility] S ource: EHR Manager Communication june: N Donnellti ce ID: 0001 Miko lable Time: 05:15:00 PM Gracy Mireles [facility] 1 17:00:00 Ultrason ography Completed 201209/12/2020 Antenata l screenin g for malforma tion using ultrason ics;Rich rded Elsewher e: No Locat ion: [facility] S ource: EHR Manager Communication june: N Donnellti ce ID: 0001 Miko lable Time: 04:30:00 PM Gracy Mireles [facility] 1 17:00:21 Antenata l screenin g Completed 201209/12/2020 Antenata l screenin g for malforma tion using ultrason ics;Rich rded Elsewher e: No Locat ion: [facility] S ource: EHR Manager Communication june: N Donnellti ce ID: 0001 Miko lable Time: 04:30:00 PM Gracy Mireles [facility] 1 16:59:17 Congenit al malforma tion [id number] Completed 201209/12/2020 Antenata l screenin g for malforma tion using ultrason ics;Rich rded Elsewher e: No Locat ion: [facility] S ource: EHR Manager Communication june: N Donnellti ce ID: 0001 Miko lable Time: 04:30:00 PM Gracy Mireles [facility] 16:59:24 Trauma to perineum and/or vulva during delivery [id number] Completed 201309/12/2020 Unspecif ied trauma to perineum and vulva, unspecif ied [facility];Record ed Elsewher e: No Locat ion: [facility] S ource: EHR Manager Communication june: N Donnellti ce ID: 0001 Miko lable Time: 11:30:00 AM Gracy dang, [facility] 17:00:18 Routine antenata l care Completed 201309/12/2020 Supervis ion of other normal pregnanc y;Practi ce ID: 0001 Gracy dang, [facility] 17:00:05 Excessiv e growth affectin g manageme nt of mother [id number] Completed 201309/12/2020 Excessiv e growth, affectin g manageme nt of mother, antepart um;Recor ded Elsewher e: No Locat ion: [facility] S ource: EHR Manager Communication june: N Donnellti ce ID: 0001 Miko lable Time: 04:00:00 PM Gracy dang [facility] 16:59:39 Delivery normal [id number] Completed 201309/12/2020 Normal delivery ;Practic e ID: 0001 Gracy dang, [facility] 16:59:37 [facility] from [facility] pregnanc y [id number] Completed 201309/12/2020 Mother with single liveborn ;Practic e ID: 0001 Gracy Mireles [facility], [facility] 17:00:10 Pregnanc y test negative [id number] Completed 201309/12/2020 Pregnanc y examinat ion or test, negative result;R ecorded Elsewher e: No Locat ion: [facility] S ource: EHR Manager Communication june: N Practi ce ID: 0001 Miko lable Time: 10:30:00 AM Gracy dang [facility] 16:59:59 Postpart um care Completed 201309/12/2020 Post Followup ;Recorde d Elsewher e: No Locat ion: Deniserachele milena [facility] S ource: EHR Manager Communication june: N Practi ce ID: 0001 Miko lable Time: 10:30:00 AM Gracy Mireles [facility] 16:59:55 Menstrua tion finding Completed 201309/12/2020 Menometr orrhagia ;Recorde d Elsewher e: No [facility] Communication june: N Practi ce ID: 0001 Miko lable Time: 09:00:00 AM Gracy Mireles [facility] 16:59:49 Postoper ative follow-u p visit Completed 201309/12/2020 Follow-u p examinat ion, followin g unspecif ied surgery; Recorded Elsewher e: No [facility] Communication june: N Practi ce ID: 0001 Miko lable Time: 04:30:00 PM Gracy Mireles [facility] 16:59:54 Amenorrh ea [id number] Completed 201309/12/2020 Amenorrh ea;Recor ded Elsewher e: No Locat ion: Pedro Luis abbott [facility] S ource: EHR Manager Communication june: N Practi ce ID: 0001 Miko lable Time: 04:00:00 PM Gracy Mireles [facility] 16:59:15 Vaginiti s and vulvovag initis Completed 201309/12/2020 Vaginiti s and vulvovag initis, unspecif ied;Rich rded Elsewher e: No Locat ion: Pedro Luis [facility] S ource: EHR Manager Communication june: N Practi ce ID: 0001 Miko lable Time: 04:00:00 PM Gracy Mireles [facility] 17:00:22 Speciali zed medical examinat ion Completed 201309/12/2020 ROUTINE EDGE BASTER EXAMINAT ION;Rich rded Elsewher e: No Locat ion: Mariebl milena [facility] S ource: EHR Manager Communication june: N Practi ce ID: 0001 Miko lable Time: 04:00:00 PM Gracy Mireles [facility] 17:00:15 Overweig ht [id number] Completed 201309/12/2020 Overweig ht;Recor ded Elsewher e: No Locat ion: [facility] milena [facility] S ource: EHR Manager Communication june: N Practi ce ID: 0001 Miko lable Time: 04:00:00 PM Gracy Mireles [facility] 16:59:52 Speciali zed medical examinat ion Completed 201409/12/2020 Other specifie d chlamydi al diseases ;Recorde d Elsewher e: No Locat ion: [facility] milena [facility] S ource: EHR Manager Communication june: N Practi ce ID: 0001 Miko lable Time: 05:15:00 PM Gracy Mireles [facility] 17:00:16 Venereal disease screenin g Completed 201409/12/2020 Screenin g examinat ion for venereal disease; Recorded Elsewher e: No Locat ion: [facility] milena [facility] S ource: EHR Manager Communication june: N Practi ce ID: 0001 Miko lable Time: 05:15:00 PM Gracy Mireles [facility] 17:00:25 Leukorrh ea [id number] Completed 201409/12/2020 Leukorrh ea, not specifie d as infectiv e;Record ed Elsewher e: No Locat ion: [facility] milena [facility] S ource: EHR Manager Communication june: N Practi ce ID: 0001 Miko lable Time: 05:15:00 PM Gracy Mireles [facility] 16:59:45 Acute vaginiti s [id number] Completed 201509/12/2020 Acute vaginiti s;Record ed Elsewher e: No Locat ion: [facility] S ource: EHR Manager Communication june: N Practi ce ID: 0001 Miko lable Time: 02:30:00 PM Gracy Mireles [facility] 16:59:14 Hemorrho ids [id number] Completed 201509/12/2020 Hemorrho id;Recor ded Elsewher e: No Locat ion: [facility] S ource: EHR Manager Communication june: N Practi ce ID: 0001 Miko lable Time: 02:30:00 PM Gracy Mireles [facility] 16:59:[address] Concept Completed 201509/12/2020 Encntr for general adult medical exam w/o abnormal findings ;Recorde d Elsewher e: No Locat ion: [facility] S ource: EHR Manager Communication june: N Practi ce ID: 0001 Miko lable Time: 10:30:00 AM Gracy Mireles [facility] 17:00:12 Pregnanc y detectio n examinat ion Completed 201609/12/2020 Encounte r for pregnanc y test, result positive ;Recorde d Elsewher e: No Locat ion: [facility] S ource: EHR Manager Communication june: N Practi ce ID: 0001 Miko lable Time: 09:45:00 AM Gracy Mireles [facility] 16:59:57 Secondar y amenorrh ea [id number] Completed 201609/12/2020 Secondar y amenorrh ea;Pract ice ID: 0001 Gracy Mireles [facility] 06/28/202 1 17:00:08 Normal pregnanc y in kaitlina james [id number] 4106 Completed 201609/12/2020 Encounte r for supervis ion of other normal pregnanc y, 2nd trimeste r;Record ed Elsewher e: No [facility] Communication june: N Practi ce ID: 0001 Miko lable Time: 08:30:00 AM Gracy Mireles [facility] 16:59:50 Prematur e rupture of membrane s [id number] Completed 201609/12/2020 Full-ter m epi ROM, unsp time betw rupture and onset labor;Pr actice ID: 0001 Gracy Mireles [facility] 17:00:02 Lacerati on of female perineum Completed 201609/12/2020 First degree perineal lacerati on during delivery ;Practic e ID: 0001 Gracy Mireles [facility], [facility] 16:59:44 Gestatio n period, 39 weeks [id number] Completed 201609/12/2020 39 weeks gestatio n of pregnanc y;Practi ce ID: 0001 Gracy Mireles [facility] 16:59:40 Lochia finding Completed 201609/12/2020 Encounte r for routine postpart um follow-u p;Record ed Elsewher e: No Locat ion: Deniser[place]le [facility] S ource: EHR Manager Communication june: N Practi ce ID: 0001 Miko lable Time: 09:45:00 AM Gracy Mireles [facility] 16:59:47 Uses combined oral contrace ption [id number] Completed 201709/12/2020 Encounte r for initial prescrip tion of contrace ptive pills;Re corded Elsewher e: No Locat ion: Pedro Luis abbott [facility] S ource: EHR Manager Communication june: N Ken ce ID: 0001 Miko lable Time: 10:15:00 AM Gracy Mireles [facility] 16:59:20 Body mass index 25-29 - overweig [id number] Completed 201709/12/2020 Body mass index (BMI) 28.0-28. 9, adult;Re corded Elsewher e: No Locat ion: Pedro Luis [facility] S ource: EHR Manager Communication june: N Ken ce ID: 0001 Miko lable Time: 10:15:00 AM Gracy Mireles [facility] 16:59:19 Screenin g for malignan t neoplasm of cervix Completed 201709/12/2020 Screenin g for malignan t neoplasm s of the cervix;R ecorded Elsewher e: No [facility] N Ken ce ID: 0001 Miko lable Time: 10:15:00 AM Gracy Mireles [facility] 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 17:00:13 Pregnanc y [id number] Completed 202412/29/2024 Christina Osorio [facility] 5 10:32:08 Multigra james of advanced maternal age [id number] Completed 2024 Kim Chilel [facility] 5 14:42:40 Problem Notes None recorded. Procedures Surgical History Date Name Laterality Status Provider Name and Address Organization Details Recorded Time 09/13/19 21 Date of Last Pap Smear completed Norma Freeman [facility] 12/03/2023 17:17:36 03/18/19 14 Hysteroscopy completed Gracy Mireles [facility] 09/12/2020 17:03:41 Imaging Results None [...] Yes Loca tion: Pedro Luis abbott [facility] Jamie odify By: ary marin DateTime [...] Prescrib ed Elsewher e: Yes Loca tion: [facility] odify By: justina Abbott ncounter DateTime : 09/01/19 14 10:30:00 AM Not Available Not Available Not Available prednison e 50 mg tablet TAKE 1 TABLET BY MOUTH DAILY 05/06 completed Not Available Not Available Not Available Vitamin D2 1,250 mcg (50,000 unit) capsule take 1 capsule (06628EL ITS) by oral route every week 08/31 completed Prescrib ed Elsewher e: No Locat ion: [facility] odify By: [email or web address] En counter DateTime : 01/29/20 13 11:56:09 AM Not Available Not Available Not Available norethind lisa (contrace ptive) 0.35 mg tablet take 1 tablet by oral route every day 12/16 completed Prescrib ed Elsewher e: No Locat ion: [facility] odify By: justina [email or web address] DateTime : 09/01/19 14 10:30:00 AM Not Available Not Available Not Available sertralin e 20 mg/mL oral concentra te 04/18 completed Prescrib ed Elsewher e: Yes Loca tion: [facility] odify By: [email or web address] Encount er DateTime : 07/06/19 16 02:30:00 [...] Prescrib ed Elsewher e: No Locat ion: [facility] odify By: justina Abbott ncounter DateTime : 10/23/19 14 09:00:00 AM Not Available Not Available Not Available erythromy michel with ethanol 2 % topical gel apply by topical route 2 times every day a thin layer to the affected area(s) in the morning and evening 01/27 completed Prescrib ed Elsewher e: No Locat ion: Pedro Luis abbott [facility] odify By: parag Abbott [email or web address] DateTime : 01/29/20 13 11:56:09 AM Not Available Not Available Not Available Duac 1.2 % (1 % base)-5 % topical gel apply by topical route 2 times every day to the affected area(s) in the morning and evening 12/16 completed Prescrib ed Elsewher e: Yes Loca tion: Pedro Luis abbott [facility] odify By: ary marin DateTime : [...] No Locat ion: Pedro Luis abbott [facility] odify By: alonso [email or web address] DateTime : 12/17/19 13 05:15:00 PM Not Available Not Available Not Available 28 mg iron-800 mcg tablet 07/19 completed Prescrib ed Elsewher e: Yes Loca tion: Pedro Luis abbott [facility] odify By: Encount er DateTime : 04/18/19 19 11:15:00 AM Not Available Not Available Not Available One Daily 27 mg iron-800 mcg tablet take 1 tablet by oral route every day 06/30 completed Prescrib ed Elsewher e: Yes Loca tion: Pedro Luis abbott [facility] odify By: parag [email or web address] DateTime : 01/28/20 14 04:00:00 PM Not Available Not Available Not Available Anusol-HC 2.5 % topical cream with perineal applicato r apply by topical route 2 times every day to the affected area(s) 08/01 completed Prescrib terri Peoples e: No Locat ion: [facility] Jamie gar By: [email or web address] Encounrubina r DateTime : 07/06/19 02:30:00 PM Not Available Not Available Not Available Vitals Date Recorded Body height Body mass index (BMI) Body weight Systolic And Diastolic Provider Name and Address Organization Details Last Updated DateTime 12/29/2024 163.2 cm 33.2 kg/m2 88415.51 g 111/76 mm[Hg] Christina Osorio MS - [facility] 12/29/2024 10:30:01 Social History Question Answer Notes LastModified by Organizat ion Details LastModified Time Do You Have An Advance Directive? No [email or web address] Information n ot available 11/04/2024 How Many Years Have You Consumed Alcohol? 4 Information not available 11/04/2024 Are You Blind Or Do You Have Difficulty Seeing? No [email or web address] Information not available 11/04/2024 What Is Your Level Of Caffeine Consumption? Moderate [email or web address] Information not available 11/04/2024 How Much Tobacco Do You Chew? None [email or web address] Information not available 11/04/2024 In The 14 Days Before Symptom Onset, Have You Had Close Contact With A Laboratory-confirme d COVID-19 While That Case Was Ill? No [email or web address] Information n ot available 11/04/2024 In The 14 Days Before Symptom Onset, Have You Had Close Contact With A Person Who Is Under Investigation For COVID-19 While That Person Was Ill? No Information not available 11/04/2024 Have You Been To An Area Known To Be High Risk For COVID-19? No [email or web address] Information not available 11/04/2024 Are You Deaf Or Do You Have Serious Difficulty Hearing? No [email or web address] Information not available 11/04/2024 What Type Of Diet Are You Following? REGULAR [email or web address] Information n ot available 11/04/2024 What Is The Highest Grade Or Level Of School You Have Completed Or The Highest Degree You Have Received? [id number] [email or web address] Information not available 11/04/2024 Are There Any Guns Present In Your Home? No [email or web address] Information not available 11/04/2024 Do You Use Protection During Sex? No Information not available 11/04/2024 Do You Use Your Seat Belt Or Car Seat Routinely? Yes [email or web address] Information not available 11/04/2024 Do You Have Smoke And Carbon Monoxide Detectors In Your Home? Yes [email or web address] Information not available 11/04/2024 How Much Tobacco Do You Smoke? No [email or web address] Information not available 11/04/2024 Do You Use Sunscreen Routinely? Yes [email or web address] Information not available 11/04/2024 Have You Used IV Drugs? No [email or web address] Information not available 11/04/2024 Do You Have Difficulty Walking Or Climbing Stairs? No Information not available 05/30/2022 Sex: Unknown Functional Status Question Answer Note LastModified by Organizat ion Details LastModified Time Do you use any illicit or recreational drugs? No Information not available 11/04/2024 What is your level of alcohol consumption? Occasional [email or web address] Information not available 11/04/2024 Are you able to walk independently without assistance or assistive devices? YESWOREST [email or web address] Information not available 11/04/2024 Are you able to care for yourself independently? 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 No Information not available 05/30/2022 What is your exercise level? Occasional Information not available 11/04/2024 Mental Status Question Answer Note LastModified by Organization D etails LastModified Time Do you feel stressed (tense, restless, nervous, or anxious, or unable to sleep at night)? [id number] [email or web address] Information not available 11/04/2024 Family History Relationship Description Onset Age of this Age Resolved Age Notes LastModified by Organization Details LastModified Time Maternal Grandmother Malignant neoplasm of stomach Not available 2024 10:21:44 Father Atrial fibrillation [email or web address] Not available 10:21:44 Father Cerebrovascu lar accident [email or web address] Not available 16:23:20 Father Hypertensive disorder Not available 2024 16:23:20 Sister Malignant neoplasm of breast [email or web address] Not available 05/16 13:00:13 Mother Asthma [email or web address] Not available 11/04/2024 16:23:20 Maternal Grandfather Malignant neoplasm of colon [email or web address] Not available 2024 16:23:20 Paternal Grandmother Malignant neoplasm of breast [email or web address] Not available 2024 16:23:20 Medical History Condition [...] ICD10 Code Diagnosis IMO Codes Diagnosis Note [id number] VALERIO EID MD [address] [address] 12/29/2024 10:17:39 12/29/2024 10:52:10 state [id number] Z39.2 [id number] S/p 4 weeks ago here today for [...] Haney Member ID Guarantor Name 12/29/2024 2 [facility] [id number] [place] Michela Kinney [id number] Violetta Kinney 12/29/2024 1 [facility] [id number] Violetta Kinney [id number] Violetta Kinney Notes Date Note Type Note [...] this time. Partner considering vasectomy. Christina dang [facility] 12/29/2024 10:52:46 OBGyn Episode Ob Episode Information Episode Created Date Number of Fetuses Patient Bloodtype Patient rh Status Prepregnancy Weight lbs Domestic Partner Domestic Partner Phone Father Name Spa Director/Finance Status 06/03/19 25 1 A Positive 203 CLOSED Fetus Data First Name Last Name Admitted to NICU Weight (g) Sex Living Outcome Pediatric Complications Fetus ID Race Codes Race Delivery Type Tonja dominique false 3912.23 1 M true Full Term [id number] Vaginal Delivery Problems Problem Notes Problem Name Start Date End Date Resolution Snomed Code Not e Multigravida of advanced maternal age 0508/06/2024 [id number] Rogelio Calculation Initial Rogelio Date Initial Exam [...] Sound Latest Days Gestation 07/21/19 25 20 [email or web address] 06/02/2024 12/06/19 25 4 Pre- Flowsheet Flowsheet [...] Weight in lbs Pre/Post Dialysis Refused Weight 204.465820723658 BP Diastolic BP Location Tested BP Systolic BP Type 75 L arm 123 sitting Fetus Heart Rate Present A 158 Fetus Movement A No Comments Patient presents to [email or web address] care. Hx of 2 uncomplicated SVDs. otherwise uncomplicated. No nausea or cramping. NT/NB wnl today, LR male NIPT! New OB labs also wnl. RTC 4 weeks for routine care. Flowsheet Date 07/01/2024 Sarmiento Score Blood Edema Fundus Height Fundus Units Glucose Ketones Leukocytes Nitrite Labor Signs Protein Cervic Dilation Cervic Effacement Cervic Station Type Weight in lbs Pre/Post Dialysis Refused Weight 207.311684950680 BP Diastolic BP Location Tested BP Systolic [...] Weight in lbs Pre/Post Dialysis Refused Weight 209.010908916159 BP Diastolic BP Location Tested BP Systolic [...] Weight in lbs Pre/Post Dialysis Refused Weight 210.374829325957 BP Diastolic BP Location Tested BP Systolic [...] Weight in lbs Pre/Post Dialysis Refused Weight 211.222534596101 BP Diastolic BP Location Tested BP Systolic [...] Type Weight in lbs Pre/Post Dialysis Refused 213.697541762520 BP Diastolic BP Location Tested BP Systolic [...] Type Weight in lbs Pre/Post Dialysis Refused 168.326594204092 BP Diastolic BP Location Tested BP Systolic [...] Weight in lbs Pre/Post Dialysis Refused Weight 221.054695566968 BP Diastolic BP Location Tested BP Systolic [...] Type Weight in lbs Pre/Post Dialysis Refused 220.273298397692 BP Diastolic BP Location Tested BP Systolic [...] Weight in lbs Pre/Post Dialysis Refused Weight 222.9104365543 BP Diastolic BP Location Tested BP Systolic [...] Weight in lbs Pre/Post Dialysis Refused Weight 218.980688372922 BP Diastolic BP Location Tested BP Systolic [...] Weight in lbs Pre/Post Dialysis Refused Weight 195.134337801489 BP Diastolic BP Location Tested BP Systolic [...]
[2025-03-05 11:35] LABS: Amylase 79 U/L (30-110); Lipase 81 U/L (23-300)
== END 2025-03-05 10:59 | disposition home or self-care (01) ==
LOC: ANHLAB 10:59
PROVIDERS: PCP Family Medicine; Visit Provider Surgery
DX: K80.10 Calculus of gallbladder with chronic cholecystitis without obstruction (principal); Z01.818 Encounter for other preprocedural examination
CPT/HCPCS: 36415; 82150; 83690

== ENCOUNTER 2025-03-08 03:22 | Day surgery (SDC) | payer OTHER, SELFPAY ==
[2025-03-04 11:28] VITALS: BMI 32.3
--- NOTE | 2025-03-04 11:36 | PC.NURSE ---
[facility] has started construction of its new state of the art ER which will open Spring 2026. With this, we anticipate parking may be a challenge for some our surgical patients and families. Parking spaces are limited but are available for all Surgical, obstetrics, and ER patients sharing this lot. If you arrive and find you are having a hard time finding a parking space, please note that we understand the challenges, please drive around the hospital and park near Hospital Entrance [address]. When you enter this entrance, you can ask a volunteer to direct or take you back to the surgical waiting area to check in. We appreciate everyone?s understanding of these expected challenges while we build for your future. Report to the Outpatient Waiting Room, entrance under the green pavilion located off [address], at time _0700_ on date _[id number]_. Planned Procedure Time: _0900_.? Time changes happen often and if your time is changed the preop area will call you the afternoon before. - You and your visitor will be asked to self-screen and do not enter if you have any COVID symptoms. Please call surgeon if you need to reschedule. - A mask is optional within the hospital at this time. Patients may have clear liquids (water, carbonated beverages, clear teas, apple juice) until 3 hours prior to surgery with a maximum of 20 ounces. - No food from midnight until time of surgery and no smoking, or chewing tobacco (or any form of nicotine). No chewing gum, candy or mints. Take only the following medications with a SIP of water on the morning of surgery: ___None DO NOT STOP ANY OF YOUR OTHER PRESCRIPTION MEDICATIONS PRIOR TO SURGERY EXCEPT THE FOLLOWING Hold all vitamins and supplements for 3 days per anesthesiologist. Medications to discontinue per physician Date to take last [id number]____[id number]___ Please no make-up, nail azeri, hairspray, perfume, deodorant, or body powder the day of surgery.? No jewelry (including any body piercings) or valuables the day of surgery, leave them at home.? Please take a shower or bath the night before, or the morning of, surgery with an antibacterial soap.? Wear comfortable, loose fitting clothing.? - Jewelry must be removed prior to entering the operating room.? Rings and piercings that are not removed may be cut off. - The hospital will not accept responsibility for valuables.? - Please leave all valuables, including medications, at home the day of surgery. If you are going home after surgery, a licensed pick up truck driver must drive you home.? - NO public transportation without another adult if you receive anesthesia. - We recommend that an adult stay with you for 24 hours following discharge. - We also recommend that you do not drive, make important decision, drink alcoholic beverages, or take any drugs that were not prescribed by your health care provider for at least 24 hours after your discharge time. Follow any additional instructions given to you from your surgeon. Telephone instructions given to __Violetta___and asked if any additional questions and then verbalized understanding. Patient advised to call surgeon office or pre surgery nurse liaison [phone] if any additional questions.
[2025-03-08] VITALS (11 sets, daily range): BP systolic 111–139; BP diastolic 62–91; PULSE 79–110; RESP 14–20; TEMP 36.1; O2SAT 99–100; BMI 32.9
--- OUTSIDE RECORDS SUMMARY | 2025-03-08 03:25 | XMS_ITS | Data Portability ---
Author Organization [facility] Address [address] [place] [address] Care Team Providers Care Camp Recreation Specialist Name Role Phone LEO ZAMARRIPA Primary Care Provider Assessment Encounter Date Assessment Date Assessment LastModified by Organization Details LastModified Time 11/12/2024 11/12/2024 Patient is ___weeks . Discussed plan. [email or web address] Not available 11/12/2024 17:44:12 11/20/2024 11/20/2024 Patient is ___weeks . Discussed plan. [email or web address] Not available 11/20/2024 15:14:07 Plan of Treatment Reminders Order Date Submit Date Provider Last Modified By Organization Details Last Modified Time Details Appointments None recorded. Lab streptococc us group B, culture, unspecified specimen 2024 025 [facility] (Lab), [address], [place], [address], 15:56:27 Referral None recorded. Procedures None recorded. [...] t Abnor mal: Yes Resul jonathan Lab: [facility] [address] [facility] [address] Tel: CULTU RE ----- ----- ----- --- [...] beatris for these drugs . Not Available [facility] (Lab) [address], [place], [address], 11/08/2024 15:56:27 10/20/19 25 10/19/2024 US, obste tric, follo w-up No observ ation record ed. [email or web address] [facility] [address], [place], [address], 10/19/2024 18:42:11 10/20/19 25 10/19/2024 , obste tric, follo w-up No observ ation record ed. Vivi [address], [place], [address], 10/21/2024 16:49:04 11/03/19 25 11/02/2024 US, obste tric, limit ed No observ ation record ed. [email or web address] [facility] [address], [place], [address], 11/02/2024 18:27:07 08/18/20 25 11/02/2024 US, obste tric, limit ed No observ ation record ed. LESTER Trinidad [address], [place], [address], 11/02/2024 17:21:55 Result Notes None recorded. Problems Name Problem SNOMED Code Status Onset Date Resolution Date Notes Provider Name and Address Organization Details Recorded Time Complete Completed 201209/12/2020 Legally unspecif ied , complete , without mention of complica tion;Rec orded Elsewher e: No Locat ion: [facility] S ource: EHR Inside Sales Person june: N Ken ce ID: 0001 Miko lable Time: 06:30:00 PM [facility] 16:59:22 Primigra james [id number] Completed 201209/12/2020 Supervis ion of normal first pregnanc y;Record ed Elsewher e: No Locat ion: [facility] S ource: EHR Inside Sales Person june: N Ken ce ID: 0001 Miko lable Time: 05:15:00 PM Gracy Mireles [facility] 1 17:00:04 Pregnanc y test positive [id number] Completed 201209/12/2020 Pregnanc y examinat ion or test, positive result;R ecorded Elsewher e: No Locat ion: [facility] S ource: EHR Inside Sales Person june: N Donnellti ce ID: 0001 Miko lable Time: 05:15:00 PM Gracy Mireles [facility] 1 17:00:00 Ultrason ography Completed 201209/12/2020 Antenata l screenin g for malforma tion using ultrason ics;Rich rded Elsewher e: No Locat ion: [facility] S ource: EHR Inside Sales Person june: N Donnellti ce ID: 0001 Miko lable Time: 04:30:00 PM Gracy Mireles null, [facility] 1 17:00:21 Antenata l screenin g Completed 201209/12/2020 Antenata l screenin g for malforma tion using ultrason ics;Rich rded Elsewher e: No [facility] Inside Sales Person june: N Practi ce ID: 0001 Miko lable Time: 04:30:00 PM Gracy dang [facility] 16:59:17 Congenit al malforma tion [id number] Completed 201209/12/2020 Antenata l screenin g for malforma tion using ultrason ics;Rich rded Elsewher e: No Locat ion: [facility] S ource: EHR Inside Sales Person june: N Practi ce ID: 0001 Miko lable Time: 04:30:00 PM Gracy dang [facility] 1 16:59:24 Trauma to perineum and/or vulva during delivery 125474816 Completed 201309/12/2020 Unspecif ied trauma to perineum and vulva, unspecif ied as to episode of care in pregnanc y;Record ed Elsewher e: No Locat ion: [facility] S ource: EHR Inside Sales Person june: N Practi ce ID: 0001 Miko lable Time: 11:30:00 AM Gracy dang [facility] 1 17:00:18 Routine antenata l care Completed 201309/12/2020 Supervis ion of other normal pregnanc y;Practi ce ID: 0001 Gracy dang [facility] 17:00:05 Excessiv e growth affectin g manageme nt of mother 10476473 Completed 201309/12/2020 Excessiv e growth, affectin g manageme nt of mother, antepart um;Recor ded Elsewher e: No [facility] Inside Sales Person june: N Ken ce ID: 0001 Miko lable Time: 04:00:00 PM Gracy Mireles [facility] 16:59:39 Delivery normal 80442402 Completed 201309/12/2020 Normal delivery ;Practic e ID: 0001 Gracy Mireles [facility], [facility] 16:59:37 Single live from singleto n pregnanc y 813133067 Completed 201309/12/2020 Mother with single liveborn ;Practic e ID: 0001 Gracy Mireles [facility], [facility] 17:00:10 Pregnanc y test negative [id number] Completed 201309/12/2020 Pregnanc y examinat ion or test, negative result;R ecorded Elsewher e: No [facility]at ion: [facility] Ken [facility] ID: 0001 Miko lable Time: 10:30:00 AM Gracy Mireles [facility] 16:59:59 Postpart um care Completed 201309/12/2020 Post Followup ;Recorde d Elsewher e: No Locat ion: [facility] j[facility]: N Ken ce ID: 0001 Miko lable Time: 10:30:00 AM Gracy Mireles [facility] 16:59:55 Menstrua tion finding Completed 201309/12/2020 Menometr orrhagia ;Recorde vini Elsewher e: No Locat ion: [facility] S ource: [facility] june: N Ken ce ID: 0001 Miko lable Time: 09:00:00 AM Gracy Mireles [facility] 16:59:49 Postoper ative follow-u p visit Completed 201309/12/2020 Follow-u p examinat ion, followin g unspecif ied surgery; Recorded Elsewher e: No Locat ion: Pedro Luis abbott [facility] S ource: EHR Inside Sales Person june: N Practi ce ID: 0001 Miko lable Time: 04:30:00 PM Gracy Mireles [facility] 16:59:54 Amenorrh ea [id number] Completed 201309/12/2020 Amenorrh ea;Recor ded Elsewher e: No Locat ion: [facility] milena [facility] S ource: EHR [facility] june: N Practi ce ID: 0001 Miko lable Time: 04:00:00 PM Gracy Mireles [facility] 16:59:15 Vaginiti s and vulvovag initis Completed 201309/12/2020 Vaginiti s and vulvovag initis, unspecif ied;Rich rded Elsewher e: No [facility]: E[facility] june: N Practi ce ID: 0001 Miko lable Time: 04:00:00 PM Gracy Mireles [facility] 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 17:00:15 Overweig ht [id number] Completed 201309/12/2020 Overweig ht;Recor ded Elsewher e: No Locat ion: [facility] S ource: EHR Inside Sales Person june: N Practi ce ID: 0001 Miko lable Time: 04:00:00 PM Gracy Mireles [facility] 16:59:52 Speciali zed medical examinat ion Completed 201409/12/2020 Other specifie d chlamydi al diseases ;Recorde d Elsewher e: No Locat ion: Pedro Luis abbott [facility] S ource: EHR Inside Sales Person june: N Practi ce ID: 0001 Miko lable Time: 05:15:00 PM Gracy Mireles [facility] 17:00:16 Venereal disease screenin g Completed 201409/12/2020 Screenin g examinat ion for venereal disease; Recorded Elsewher e: No Locat ion: [facility] S ource: EHR Inside Sales Person june: N Practi ce ID: 0001 Miko lable Time: 05:15:00 PM Gracy Mireles [facility] 17:00:25 Leukorrh ea [id number] Completed 201409/12/2020 Leukorrh ea, not specifie d as infectiv e;Record ed Elsewher e: No Locat ion: [facility] S ource: EHR Inside Sales Person june: N Practi ce ID: 0001 Miko lable Time: 05:15:00 PM Gracy Mireles [facility] 16:59:45 Acute vaginiti s [id number] Completed 201509/12/2020 Acute vaginiti s;Record ed Elsewher e: No Locat ion: Pedro Luis [facility] S ource: EHR Inside Sales Person june: N Practi ce ID: 0001 Miko lable Time: 02:30:00 PM Gracy Mireles [facility] 16:59:14 Hemorrho ids [id number] Completed 201509/12/2020 Hemorrho id;Recor ded Elsewher e: No Locat ion: Pedro Luis [facility] S ource: EHR Inside Sales Person june: N Practi ce ID: 0001 Miko lable Time: 02:30:00 PM Gracy Mireles [facility] 16:59:[address] Concept Completed 201509/12/2020 Encntr for general adult medical exam w/o abnormal findings ;Recorde d Richelle e: No Locat ion: [facility] S ource: EHR Inside Sales Person june: N Practi ce ID: 0001 Miko lable Time: 10:30:00 AM Gracy dang, [facility] 17:00:12 Pregnanc y detectio n examinat ion Completed 201609/12/2020 Encounte r for pregnanc y test, result positive ;Recorde d Richelle e: No Locat ion: [facility] S ource: EHR Inside Sales Person june: N Practi ce ID: 0001 Miko lable Time: 09:45:00 AM Gracy dang, [facility] 16:59:57 Secondar y amenorrh ea [id number] Completed 201609/12/2020 Secondar y amenorrh ea;Pract ice ID: 0001 Gracy dang, [facility] 17:00:08 Normal pregnanc y in multigra james [id number] 4106 Completed 201609/12/2020 Encounte r for supervis ion of other normal pregnanc y, 2nd trimeste r;Record ed Elsewher e: No Locat ion: Pedro Luis [facility] S ource: EHR Inside Sales Person june: N Practi ce ID: 0001 Miko lable Time: 08:30:00 AM Gracy dang [facility] 16:59:50 Prematur e rupture of membrane s 07096516 Completed 201609/12/2020 Full-ter m epi ROM, unsp time betw rupture and onset labor;Pr actice ID: 0001 Gracy dang, [facility] 17:00:02 Lacerati on of female perineum Completed 201609/12/2020 First degree perineal lacerati on during delivery ;Practic e ID: 0001 Gracy Mireles [facility] 16:59:44 Gestatio n period, 39 weeks 73481962 Completed 201609/12/2020 39 weeks gestatio n of pregnanc y;Practi ce ID: 0001 Gracy Mireles [facility] 16:59:40 Lochia finding Completed 201609/12/2020 Encounte r for routine postpart um follow-u p;Record ed Elsewher e: No Locat ion: [facility] S ource: EHR Inside Sales Person june: N Practi ce ID: 0001 Miko lable Time: 09:45:00 AM Gracy Mireles [facility] 16:59:47 Uses combined oral contrace ption 742820462 Completed 201709/12/2020 Encounte r for initial prescrip tion of contrace ptive pills;Re corded Elsewher e: No Locat ion: [facility] Luis [facility] S ource: EHR Inside Sales Person june: N Practi ce ID: 0001 Miko lable Time: 10:15:00 AM Gracy Mireles [facility] 16:59:20 Body mass index 25-29 - overweig 026104046 Completed 201709/12/2020 Body mass index (BMI) 28.0-28. 9, adult;Re corded Elsewher e: No Locat ion: [facility] S ource: EHR Inside Sales Person june: N Practi ce ID: 0001 Miko lable Time: 10:15:00 AM Gracy Mireles [facility] 16:59:19 Screenin g for malignan t neoplasm of cervix Completed 201709/12/2020 Screenin g for malignan t neoplasm s of the cervix;R ecorded Elsewher e: No Locat ion: Maribel milena [facility] S ource: EHR Inside Sales Person june: N Practi ce ID: 0001 Miko lable Time: 10:15:00 AM Gracy Mireles [facility] 17:00:[address] Concept Completed 201809/12/2020 Encntr for installation & maintenance executive exam (general ) (routine ) w/o abn findings ;Recorde d Elsewher e: No Locat ion: [facility] S ource: EHR Inside Sales Person june: N Practi ce ID: 0001 Miko lable Time: 11:15:00 AM Gracy Mireles [facility] 17:00:13 Pregnanc y 84799191 Completed 202412/29/2024 Christina Osorio [facility] 5 10:32:08 Multigra james of advanced maternal age 418428849 Completed 2024 Kim Getachew [facility] 5 14:42:40 Problem Notes None recorded. Procedures Surgical History Date Name Laterality Status Provider Name and Address Organization Details Recorded Time 09/13/19 21 Date of Last Pap Smear completed Norma Freeman [facility] 12/03/2023 17:17:36 03/18/19 14 Hysteroscopy completed Gracy Mireles [facility] 09/12/2020 17:03:41 Imaging Results None [...] Elsewher e: Yes Loca tion: Denisemattdeb abbott [facility] odify By: ary marin DateTime : [...] Elsewher e: Yes Loca tion: Pedro Luis [facility] odify By: justina mendoza DateTime : 09/01/19 14 10:30:00 AM Not Available Not Available Not Available prednison e 50 mg tablet TAKE 1 TABLET BY MOUTH DAILY 05/06 completed Not Available Not Available Not Available Vitamin D2 1,250 mcg (50,000 unit) capsule take 1 capsule (58161NN ITS) by oral route every week 08/31 completed Prescrib ed Elsewher e: No Locat ion: Deniserachele milena [facility] odify By: [email or web address] trick En counter DateTime : 01/29/20 13 11:56:09 AM Not Available Not Available Not Available norethind lisa (contrace ptive) 0.35 mg tablet take 1 tablet by oral route every day 12/16 completed Prescrib ed Elsewher e: No Locat ion: Pedro Luis milena [facility] odify By: justina [address] ncounter DateTime : 09/01/19 14 10:30:00 AM Not Available Not Available Not Available sertralin e 20 mg/mL oral concentra te 04/18 completed Prescrib ed Elsewher e: Yes Loca tion: Pedro Luis abbott [facility] odify By: [email or web address] Encount er DateTime : 07/06/19 16 02:30:00 [...] e: No Locat ion: Pedro Luis abb[facility] odify By: justina [address] ncounter DateTime : 10/23/19 14 09:00:00 AM Not Available Not Available Not Available erythromy michel with ethanol 2 % topical gel apply by topical route 2 times every day a thin layer to the affected area(s) in the morning and evening 01/27 completed Prescrib ed Elsewher e: No Locat ion: Pedro Luis [facility] odify By: parag Abbott ncounter DateTime : 01/29/20 13 11:56:09 AM Not Available Not Available Not Available Duac 1.2 % (1 % base)-5 % topical gel apply by topical route 2 times every day to the affected area(s) in the morning and evening 12/16 completed Prescrib ed Elsewher e: Yes [facility] By: ary marin DateTime : 10/29/19 [...] e: No Locat ion: Pedro Luis abbott [facility] odify By: alonso mendoza DateTime : 12/17/19 13 05:15:00 PM Not Available Not Available Not Available 28 mg iron-800 mcg tablet 07/19 completed Prescrib ed Elsewher e: Yes Loca tion: [facility] odify By: [email or web address] Encount er DateTime : 04/18/19 19 11:15:00 AM Not Available Not Available Not Available One Daily 27 mg iron-800 mcg tablet take 1 tablet by oral route every day 06/30 completed Prescrib ed Elsewher e: Yes [facility] By: parag mendoza DateTime : 01/28/20 14 04:00:00 PM Not Available Not Available Not Available Anusol-HC 2.5 % topical cream with perineal applicato r apply by topical route 2 times every day to the affected area(s) 08/01 completed Prescrib ed Elsewher e: No [facility] By: ivy Heredia r DateTime : 07/06/19 16 02:30:00 PM Not Available Not Available Not Available Vitals Date Recorded Body height Body mass index (BMI) Body weight Systolic And Diastolic Provider Name and Address Organization Details Last Updated DateTime 11/04/2024 163.2 cm 37.8 kg/m2 703781.79 g 132/84 mm[Hg] Maddie Brandon [facility] 11/04/2024 16:27:37 Date Recorded Body weight Systolic And Diastolic Provider Name and Address Organization Details Last Updated DateTime 11/12/2024 52232.3214 g 117/80 mm[Hg] Morelia Jacques [facility] 11/12/2024 17:44:46 Date Recorded Body height Body mass index (BMI) Body weight Systolic And Diastolic Provider Name and Address Organization Details Last Updated DateTime 11/20/2024 163.2 cm 37.8 kg/m2 721152.51 g 134/85 mm[Hg] Cinthia Castillo [facility] 11/20/2024 15:15:30 Date Recorded Body height Body mass index (BMI) Body weight Systolic And Diastolic Provider Name and Address Organization Details Last Updated DateTime 11/27/2024 163.2 cm 37.1 kg/m2 79579.14 g 138/83 mm[Hg] Christina [facility] 11/27/2024 16:59:42 Date Recorded Body height Body mass index (BMI) Body weight Systolic And Diastolic Provider Name and Address Organization Details Last Updated DateTime 12/29/2024 163.2 cm 33.2 kg/m2 11212.51 g 111/76 mm[Hg] Christina [facility] 12/29/2024 10:30:01 Social History Question Answer Notes LastModified by Organizat ion Details LastModified Time Do You Have An Advance Directive? No [email or web address] Information n ot available 11/04/2024 How Many Years Have You Consumed Alcohol? 4 [email or web address] Information not available 11/04/2024 Are You Blind Or Do You Have Difficulty Seeing? No [email or web address] Information not available 11/04/2024 What Is Your Level Of Caffeine Consumption? Moderate [email or web address] Information not available 11/04/2024 How Much Tobacco Do You Chew? None Information not available 11/04/2024 In The 14 Days Before Symptom Onset, Have You Had Close Contact With A Laboratory-confirme d COVID-19 While That Case Was Ill? No [email or web address] Information n ot available 11/04/2024 In The 14 Days Before Symptom Onset, Have You Had Close Contact With A Person Who Is Under Investigation For COVID-19 While That Person Was Ill? No [email or web address] Information not available 11/04/2024 Have You Been To An Area Known To Be High Risk For COVID-19? No [email or web address] Information not available 11/04/2024 Are You Deaf Or Do You Have Serious Difficulty Hearing? No [email or web address] Information not available 11/04/2024 What Type Of Diet Are You Following? REGULAR [email or web address] Information n ot available 11/04/2024 What Is The Highest Grade Or Level Of School You Have Completed Or The Highest Degree You Have Received? [id number] [email or web address] Information not available 11/04/2024 Are There Any Guns Present In Your Home? No Information not available 11/04/2024 Do You Use Protection During Sex? No Information not available 11/04/2024 Do You Use Your Seat Belt Or Car Seat Routinely? Yes [email or web address] Information not available 11/04/2024 Do You Have Smoke And Carbon Monoxide Detectors In Your Home? Yes Information not available 11/04/2024 How Much Tobacco Do You Smoke? No [email or web address] Information not available 11/04/2024 Do You Use Sunscreen Routinely? Yes [email or web address] Information not available 11/04/2024 Have You Used IV Drugs? No [email or web address] Information not available 11/04/2024 Do You Have Difficulty Walking Or Climbing Stairs? No Information not available 05/30/2022 Sex: Unknown Functional Status Question Answer Note LastModified by Organizat ion Details LastModified Time Do you use any illicit or recreational drugs? No [email or web address] Information not available 11/04/2024 What is your level of alcohol consumption? Occasional Information not available 11/04/2024 Are you able to walk independently without assistance or assistive devices? YESWOREST [email or web address] Information not available 11/04/2024 Are you able to care for yourself independently? 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 No Information not available 05/30/2022 What is your exercise level? Occasional [email or web address] Information not available 11/04/2024 Mental Status Question Answer Note LastModified by Organization D etails LastModified Time Do you feel stressed (tense, restless, nervous, or anxious, or unable to sleep at night)? [id number] [email or web address] Information not available 11/04/2024 Family History Relationship Description Onset Age of this Age Resolved Age Notes LastModified by Organization Details LastModified Time Maternal Grandmother Malignant neoplasm of stomach [email or web address] Not available 2024 10:21:44 Father Atrial fibrillation [email or web address] Not available 10:21:44 Father Cerebrovascu lar accident [email or web address] Not available 16:23:20 Father Hypertensive disorder [email or web address] Not available 2024 16:23:20 Sister Malignant neoplasm of breast [email or web address] Not available 05/16 13:00:13 Mother Asthma [email or web address] Not available 11/04/2024 16:23:20 Maternal Grandfather Malignant neoplasm of colon Not available 2024 16:23:20 Paternal Grandmother Malignant neoplasm of breast Not available 2024 16:23:20 Medical History Condition Response Allergies (Food, seasonal, environmental ) N Other N Breast Cancer N Blood Transfusion N Drug/Latex Allergies/Reactions N Dermatologic Disorders N Lung Disease N [...] ICD10 Code Diagnosis IMO Codes Diagnosis Note [id number] Naeem Sebastian MD [facility] [address] [address] 09/12/2020 16:45:57 09/12/2020 17:58:14 Venereal disease screening [id number] Z11.3 Gynecologi c examination 41585472 Z01.419 This patient is here for her annual exam. A thorough history was taken. A physical exam was performed. Age appropriat e routine health screening was ordered, performed, and discussed. Recommende d testing was ordered. She was asked to follow up in one year. She will be informed of any test results. Pap - today Bacterial vaginosis 4197 58302 N76.0 [id number] [facility] [address] [address] 07/19/2021 17:00:09 07/19/2021 17:51:58 Vaginitis 05972606 N76.0 Recurrent vaginal itching (??infecti on).Hx of [...] counseling and review of plan of care. [id number] BESSIE Frazier [facility] [address],[place] [address] 05/30/2022 12:38:55 05/30/2022 14:34:10 Gynecologic examination 40012795 Z01.419 Take Calcium with Vitamin D 1200mg [...] needed Family his tory of breast cancer 189326275 Z80.3 [id number] VALERIO EID MD [facility] [address] [address] 12/03/2023 16:54:39 12/03/2023 18:03:47 Mass of right breast [id number] N63.10 - small 0.5cm lump at edge of R areola- likely benign however given sister's hx of breast cancer at age 30, will evaluate with imaging [id number] Naeem Sebastian MD [facility] [address],[place] [address] 04/30/2024 13:54:28 04/30/2024 14:42:40 [id number] VALERIO EID MD [facility] [address],[place] [address] 05/06/2024 15:46:20 05/06/2024 16:35:45 test positive 441654131 Z32.01 1. Exam today within normal limits.2. [...] 10 weeks, orders given today. screening 2437 01644 Z36.0 Genetic in vestigation procedure 09888486 Z31.430 [id number] Naeem Sebastian MD [facility] [address],[place] [address] 06/02/2024 17:30:13 06/03/2024 08:38:33 screening 679881414 Z36.82 Z3A.14 [id number] VALERIO EID MD [facility] [address],[place] [address] 06/02/2024 17:30:45 06/05/2024 10:27:36 Candidiasis of vagina 40914382 B37.31 Routine an tenatal care 996690237 Z34.01 [id number] Naeem Sebastian MD [facility] [address],[place] [address] 07/01/2024 16:13:00 07/01/2024 16:59:51 [id number] MD Katie Deal [address],[place] [address] 07/20/2024 17:01:24 07/21/2024 08:15:13 care status [id number] Z34.82 [id number] MD Katie Deal [address],[place] [address] 07/20/2024 17:01:48 07/21/2024 08:14:08 screening for malformation 807955910 Z36.3 Z3A.20 [id number] MD Katie Deal [address],[place] [address] 08/21/2024 09:42:34 08/21/2024 10:52:54 care status [id number] Z34.82 [id number] [id number] MD Katie Deal [address],[place] [address] 09/21/2024 10:18:37 09/21/2024 11:17:47 care status 893255391 Z34.83 [id number] MD Katie Deal [address],[place] [address] 10/05/2024 16:59:47 10/05/2024 18:02:39 care status 320417107 Z34.83 [id number] [id number] MD Katie Deal [address],[place] [address] 10/19/2024 10:00:38 10/19/2024 10:55:03 Multigravida of advanced maternal age 031096700 O09.523 O26.843 Z3A.33 [id number] [id number] MD Katie Deal [address],[place] [address] 10/19/2024 10:07:31 10/20/2024 05:37:26 care status 213197218 Z34.83 17295560 [id number] VALERIO EID MD Byron [address],[place] [address] 11/02/2024 16:24:55 11/02/2024 16:55:46 Breech presentation 2288011 O32.1XX0 Z3A.35 96705510 [id number] VALERIO EID MD Byron [address],[place] [address] 11/04/2024 16:14:38 11/04/2024 16:52:44 Multigravida of advanced maternal age 902235688 O09.522 55141557 Gestation period, 35 weeks 02559536 Z3A.35 3499131 screening 2437 47334 Z36.85 [id number] Naeem Sebastian MD Byron [address],[place] [address] 11/12/2024 16:53:33 11/13/2024 09:18:51 care status 289507091 Z34.83 [id number] VALERIO EID MD Byron [address],[place] [address] 11/20/2024 14:46:58 11/20/2024 15:30:11 Multigravida of advanced maternal age 456969956 O09.523 95720152 Gestation period, 37 weeks 03343249 Z3A.37 3750636 [id number] VALERIO EID MD Byron [address],[place] [address] 11/27/2024 16:51:55 11/27/2024 17:51:25 care status 184970087 Z34.83 [id number] [id number] VALERIO EID MD Byron [address],[place] [address] 12/29/2024 10:17:39 12/29/2024 10:52:10 state 67058914 Z39.2 [id number] S/p 4 weeks ago here today for [...] Member ID Guarantor Name 01/28/2025 2 R [id number] Graham Kinney [id number] Violetta Nirmal 05/28/2022 1 [employer] [id number] Graham Kinney [id number] Violetta Nirmal 11/27/2024 1 [employer] [id number] Violetta Kinney [id number] Violetta Nirmal 01/28/[address] [facility] [id number] Violetta Abbott Nirmal [id number] Violetta Nirmal 11/27/[address] [facility] [id number] Violetta E Nirmal [id number] Violetta Nirmal Notes Date Note Type Note Provider Name and Address Organization Details Recorded Time 11/04/2024 text/html Generic HPI TemplateReported by Patient Mdadie dang, [facility] 11/04/2024 16:56:16 11/12/2024 text/html Generic HPI TemplateReported by Patient Naeem Sebastian MD [address], [place], [address], [facility] 11/12/2024 18:01:29 11/20/2024 text/html Generic HPI TemplateReported by Patient VALERIO EID MD [address], [place], [address], [facility] 11/20/2024 15:29:32 11/27/2024 text/html Generic HPI TemplateReported by Patient VALERIO EID MD [address], [place], [address], [facility] 11/27/2024 17:18:08 [...] this time. Partner considering vasectomy. Christina dang, [facility] 12/29/2024 10:52:46 OBGyn Episode Ob Episode Information Episode Created Date Number of Fetuses Patient Bloodtype Patient rh Status Prepregnancy Weight lbs Domestic Partner Domestic Partner Phone Father Name Remote Operations Producer Status 09/13/19 21 1 CLOSED Fetus Data First Name Last Name Admitted to NICU Weight (g) Sex Living Outcome Pediatric Complications Fetus ID Race Codes Race Delivery Type F Full Term [id number] Vaginal Delivery Rogelio Calculation Initial Rogelio Date [...] Domestic Partner Domestic Partner Phone Father Name Remote Operations Producer Status 09/13/19 21 1 CLOSED Fetus Data First Name Last Name Admitted to NICU Weight (g) Sex Living Outcome Pediatric Complications Fetus ID Race Codes Race Delivery Type F Full Term 79764 Vaginal Delivery Rogelio Calculation Initial Rogelio Date [...] Domestic Partner Domestic Partner Phone Father Name Remote Operations Producer Status 06/03/19 25 1 A Positive 203 CLOSED Fetus Data First Name Last Name Admitted to NICU Weight (g) Sex Living Outcome Pediatric Complications Fetus ID Race Codes Race Delivery Type Tonja dmoinique false 3912.23 1 M true Full Term 69110 Vaginal Delivery Problems Problem Notes Problem Name Start Date End Date Resolution Snomed Code Not e Multigravida of advanced maternal age 0508/06/2024 [id number] Rogelio Calculation Initial Rogelio Date Initial Exam [...] Sound Latest Days Gestation 07/21/19 25 20 [email or web address] 06/02/2024 12/06/19 25 4 Pre-geni Flowsheet Flowsheet [...] Weight in lbs Pre/Post Dialysis Refused Weight 204.177214053015 BP Diastolic BP Location Tested BP Systolic BP Type 75 L arm 123 sitting Fetus Heart Rate Present A 158 Fetus Movement A No Comments Patient presents to [facility] care. Hx of 2 uncomplicated SVDs. otherwise uncomplicated. No nausea or cramping. NT/NB wnl today, LR male NIPT! New OB labs also wnl. RTC 4 weeks for routine care. Flowsheet Date 07/01/2024 Sarmiento Score Blood Edema Fundus Height Fundus Units Glucose Ketones Leukocytes Nitrite Labor Signs Protein Cervic Dilation Cervic Effacement Cervic Station Type Weight in lbs Pre/Post Dialysis Refused Weight 207.570426652214 BP Diastolic BP Location Tested BP Systolic [...] Weight in lbs Pre/Post Dialysis Refused Weight 209.283351109444 BP Diastolic BP Location Tested BP Systolic [...] Weight in lbs Pre/Post Dialysis Refused Weight 210.586102887570 BP Diastolic BP Location Tested BP Systolic [...] Weight in lbs Pre/Post Dialysis Refused Weight 211.787750252106 BP Diastolic BP Location Tested BP Systolic [...] Type Weight in lbs Pre/Post Dialysis Refused 213.476496937531 BP Diastolic BP Location Tested BP Systolic [...] Type Weight in lbs Pre/Post Dialysis Refused 168.046292141616 BP Diastolic BP Location Tested BP Systolic [...] Weight in lbs Pre/Post Dialysis Refused Weight 221.211556912926 BP Diastolic BP Location Tested BP Systolic [...] Type Weight in lbs Pre/Post Dialysis Refused 220.769729447932 BP Diastolic BP Location Tested BP Systolic [...] Weight in lbs Pre/Post Dialysis Refused Weight 222.4956952099 BP Diastolic BP Location Tested BP Systolic [...] Weight in lbs Pre/Post Dialysis Refused Weight 218.475542709872 BP Diastolic BP Location Tested BP Systolic [...] Weight in lbs Pre/Post Dialysis Refused Weight 195.925407688532 BP Diastolic BP Location Tested BP Systolic [...]
--- OUTSIDE RECORDS SUMMARY | 2025-03-08 03:25 | XMS_ITS | Clinical Summary ---
Author Organization [facility] Address [address] [place] [address] Care Team Providers Care Adjunct Phlebotomy Instructor Name Role Phone Johnnie Steel MD Primary Care Provider [phone]- [phone] Source Comments [facility],non-owned Affiliates and Associated Physician Practices is amultiple site organization consisting of ambulatory clinics and hospital sitesin [place], [place], [place] and [place]. This disclosure is being madepursuant to the Care Everywhere program and may not contain all information available regarding this patient. Last updated 17.[facility] Allergies No known active allergies Medications * [...] age to complete this topic Care Teams Adjunct Phlebotomy Instructor Relationship Specialty Start Date End Date Johnnie Steel MD [address] [place] [id number] PCP - General Family Medicine 11/06/17
--- OUTSIDE RECORDS SUMMARY | 2025-03-08 03:26 | XMS_ITS | Continuity of Care Document ---
Author Organization [facility] Address [address] [place] [address] Care Team Providers Care Senior Systems Engineer Name Role Phone PETRONAZAKI LEO Primary Care Provider [phone] Assessment No assessment recorded. Plan of Treatment [...] urine Amphetamines : negati ve Not Available [place] [address], [place], [address], 06/03/2024 17:47:42 06/04/19 25 06/03/2024 drug scree n, urine Cannabinoids : negati ve Not Available [place] [address], [place], [address], 06/03/2024 17:47:42 06/04/19 25 06/03/2024 drug scree n, urine Cocaine: negati ve Not Available [place] [address], [place], [address], 06/03/2024 17:47:42 06/04/19 25 06/03/2024 drug scree n, urine Opiates: negati ve Not Available [place] [address], [place], [address], 06/03/2024 17:47:42 06/04/19 25 06/03/2024 drug scree n, urine Phenocyclidi ne: negati ve Not Available [place] [address], [place], [address], 06/03/2024 17:47:42 06/04/19 25 06/03/2024 drug scree n, urine Barbiturates : negati ve Not Available [place] [address], [place], [address], 06/03/2024 17:47:42 06/04/19 25 06/03/2024 drug scree n, urine Benzodiazepi romina: negati ve Not Available [place] [address], [place], [address], 06/03/2024 17:47:42 06/04/19 25 06/03/2024 drug scree n, urine Ethanol: negati ve Not Available [place] [address], [place], [address], 06/03/2024 17:47:42 06/04/19 25 06/03/2024 drug scree n, urine Hallucinogen s: negati ve Not Available [place] [address], [place], [address], 06/03/2024 17:47:42 06/04/19 25 06/03/2024 drug scree n, urine Inhalants: negati ve Not Available [place] [address], [place], [address], 06/03/2024 17:47:42 06/04/19 25 06/03/2024 drug scree n, urine Anabolic Steroids: negati ve Not Available [place] [address], [place], [address], 06/03/2024 17:47:42 09/22/1909/21/2024 HEMAT OCRIT (HCT) HCT 32.3 % (based on docume nted legal sex) 34.0-4 5.0 low Not Available [facility] (Lab) [address] [facility], [place], [address], 09/22/2024 12:01:19 09/22/19 25 09/21/2024 HEMOG LOBIN (HGB) HGB 10.4 g/dL (based on docume nted legal sex) 11.6-1 5.4 low Not Available [facility] (Lab) [address], [place], [address], 09/22/2024 12:01:20 09/22/19 25 09/21/2024 GTT - GESTA JULIUS L GARFIELD Beltrán, ACOG OB glucose, 1 hour screen 146 mg/dL 70-135 high Not Available [facility] (Lab) [address] [place], [address], 09/22/2024 12:01:20 09/22/19 25 09/21/2024 HIV 1/2 ANTIG EN/AN TIBOD Y, REFLE X CONFI RMATI ON HIV antigen/anti body Nonrea ctive nonrea ctive HIV-1 antig en and HIV-1 /HIV- 2 antib odies were not detec greta. No labor atory evide nce of HIV infec tion. Not Available [facility] (Lab) [address] [facility], [place], [address], 09/22/2024 12:01:21 09/22/19 25 09/21/2024 RPR SCREE N, REFLE X TITER /CONF IRMAT ION RPR qualitative Nonrea ctive nonrea ctive Not Available [facility] (Lab) [address] [place], [address], 09/22/2024 12:01:21 09/29/1909/28/2024 GTT - GESTA JULIUS L, 3 HOUR, ACOG glucose, fasting acog 84 mg/dL 70-94 Not Available [facility] (Lab) [address] [place], [address], 09/29/2024 03:44:44 09/29/19 25 09/28/2024 GTT - GESTA JULIUS L, 3 HOUR, ACOG glucose, 1 hour acog 181 mg/dL 70-179 high Not Available [facility] (Lab) [address] [place], [address], 09/29/2024 03:44:44 09/29/19 25 09/28/2024 GTT - GESTA JULIUS L, 3 HOUR, ACOG glucose, 2 hour acog 150 mg/dL 70-154 Not Available [facility] (Lab) [address] [place], [address], 09/29/2024 03:44:44 09/29/19 25 09/28/2024 GTT - GESTA JULIUS L, 3 HOUR, ACOG glucose, 3 hour acog 127 mg/dL 70-139 Not Available [facility] (Lab) [address] [place], [address], 09/29/2024 03:44:44 11/05/19 25 11/04/2024 CULTU RE: GROUP B STREP SCREE N, REFLE X SUSCE PTIBI LITY result report SEE RESULT S BELOW abnormal Test: Cultu re: Group B Strep , Refle x Susce ptibi lity ([facility] ) Speci men Sourc e: Vagin a/Rec angelique Speci men Type: Vagin al/Re ctal Speci men Date: 2024 1702 Resul t Date: 2024 1453 Resul t Statu s: Final resul t Abnor mal: Yes Resul kasiag Lab: [facility] [address] [facility] [address] Tel: CULTU RE ----- ----- ----- --- [...] beatris for these drugs . Not Available [facility] (Lab) [address], [place], [address], 11/08/2024 15:56:27 06/03/19 25 06/02/2024 US, obste tric, nucha l trans lucen cy No observ ation record ed. Vivi [address], [place], [address], 06/02/2024 22:49:25 06/03/19 25 06/02/2024 US, obste tric, nucha l trans lucen cy No observ ation record ed. [email or web address] [place] [address], [place], [address], 06/02/2024 18:53:48 07/21/19 25 07/20/2024 US, obste tric, 2nd or 3rd trime ster No observ ation record ed. [email or web address] [place] [address], [place], [address], 07/20/2024 18:43:23 07/21/19 25 07/20/2024 US, obste tric, follo w-up No observ ation record ed. [email or web address] [address]i [address], [place], [address], 08/06/2024 14:42:59 10/20/19 25 10/19/2024 US, obste tric, follo w-up No observ ation record ed. [email or web address] [place] [address], [place], [address], 10/19/2024 18:42:11 10/20/19 25 10/19/2024 US, obste tric, follo w-up No observ ation record ed. [email or web address] Vivi [address], [place], [address], 10/21/2024 16:49:04 11/03/19 25 11/02/2024 US, obste tric, limit ed No observ ation record ed. [email or web address] [place] [address], [place], [address], 11/02/2024 18:27:07 11/03/19 25 11/02/2024 , obste tric, limit ed No observ ation record ed. LESTER Vivi [address], [place], [address], 11/02/2024 17:21:55 Result Notes None recorded. Problems Name Problem SNOMED Code Status Onset Date Resolution Date Notes Provider Name and Address Organization Details Recorded Time Complete Completed 201209/12/2020 Legally unspecif ied , complete , without mention of complica tion;Rec orded Elsewher e: No Locat ion: [facility] S ource: EHR Supply Chain Analyst june: N Ken ce ID: 0001 Miko lable Time: 06:30:[address] [facility] 16:59:22 Primigra james [id number] Completed 201209/12/2020 Supervis ion of normal first pregnanc y;Record ed Elsewher e: No Locat ion: [facility] S ource: EHR Supply Chain Analyst june: N Ken ce ID: 0001 Miko lable Time: 05:15:00 PM [address] [facility] 1 17:00:04 Pregnanc y test positive [id number] Completed 201209/12/2020 Pregnanc y examinat ion or test, positive result;R ecorded Elsewher e: No Locat ion: [facility] S ource: EHR Supply Chain Analyst june: N Donnellti ce ID: 0001 Miko lable Time: 05:15:[address] [facility] 1 17:00:00 Ultrason ography Completed 201209/12/2020 Antenata l screenin g for malforma tion using ultrason ics;Rich rded Elsewher e: No Locat ion: [facility] S ource: EHR Supply Chain Analyst june: N Donnellti ce ID: 0001 Miko lable Time: 04:30:00 [address] [facility] 1 17:00:21 Antenata l screenin g Completed 201209/12/2020 Antenata l screenin g for malforma tion using ultrason ics;Rich rded Elsewher e: No Locat ion: [facility] S ource: EHR Supply Chain Analyst june: N Donnellti ce ID: 0001 Miko lable Time: 04:30:00 [address] [facility] 1 16:59:17 Congenit al malforma tion [id number] Completed 201209/12/2020 Antenata l screenin g for malforma tion using ultrason ics;Rich rded Elsewher e: No Locat ion: [facility] S ource: EHR Supply Chain Analyst june: N Donnellti ce ID: 0001 Miko lable Time: 04:30:[address] [facility] 16:59:24 Trauma to perineum and/or vulva during delivery [id number] Completed 201309/12/2020 Unspecif ied trauma to perineum and vulva, unspecif ied [facility];Record ed Elsewher e: No Locat ion: [facility] S ource: EHR Supply Chain Analyst june: N Donnellti ce ID: 0001 Miko lable Time: 11:30:00 AM Gracy dang, [facility] 17:00:18 Routine antenata l care Completed 201309/12/2020 Supervis ion of other normal pregnanc y;Practi ce ID: 0001 Gracy dang, [facility] 17:00:05 Excessiv e growth affectin g manageme nt of mother [id number] Completed 201309/12/2020 Excessiv e growth, affectin g manageme nt of mother, antepart um;Recor ded Elsewher e: No Locat ion: [facility] S ource: EHR Supply Chain Analyst june: N Donnellti ce ID: 0001 Miko lable Time: 04:00:00 PM Gracy dang [facility] 16:59:39 Delivery normal [id number] Completed 201309/12/2020 Normal delivery ;Practic e ID: 0001 Gracy dang, [facility] 16:59:37 [facility] [id number] Completed 201309/12/2020 Mother with single liveborn ;Practic e ID: 0001 Gracy Mireles [facility], [facility] 17:00:10 Pregnanc y test negative [id number] Completed 201309/12/2020 Pregnanc y examinat ion or test, negative result;R ecorded Elsewher e: No Locat ion: [facility] S ource: EHR Supply Chain Analyst june: N Practi ce ID: 0001 Miko lable Time: 10:30:00 AM Gracy dang [facility] 16:59:59 Postpart um care Completed 201309/12/2020 Post Followup ;Recorde d Elsewher e: No Locat ion: [facility] S ource: EHR Supply Chain Analyst june: N Practi ce ID: 0001 Miko lable Time: 10:30:00 AM [address]acy Mireles [facility] 16:59:55 Menstrua tion finding Completed 201309/12/2020 Menometr orrhagia ;Recorde d Elsewher e: No Locat ion: [facility] ource: EHR Supply Chain Analyst june: N Practi ce ID: 0001 Miko lable Time: 09:00:00 AM Gracy Mireles [facility] 16:59:49 Postoper ative follow-u p visit Completed 201309/12/2020 Follow-u p examinat ion, followin g unspecif ied surgery; Recorded Elsewher e: No [facility]: [facility] Chain Analyst june: N Practi ce ID: 0001 Miko lable Time: 04:30:[address] [facility] 16:59:54 Amenorrh ea [id number] Completed 201309/12/2020 Amenorrh ea;Recor ded Elsewher e: No Locat ion: [facility] S ource: EHR Supply Chain Analyst june: N Practi ce ID: 0001 Miko lable Time: 04:00:[address] [facility] 16:59:15 Vaginiti s and vulvovag initis Completed 201309/12/2020 Vaginiti s and vulvovag initis, unspecif ied;Rich rded Elsewher e: No Locat ion: Pedro Luis [facility] S ource: EHR Supply Chain Analyst june: N Practi ce ID: 0001 Miko lable Time: 04:00:[address] [facility] 17:00:22 Speciali zed medical examinat ion Completed 201309/12/2020 ROUTINE FILLING LAYER UP EXAMINAT ION;Rich rded Elsewher e: No Locat ion: Maribel [facility] S ource: EHR Supply Chain Analyst june: N Practi ce ID: 0001 Miko lable Time: 04:00:[address] [facility] 17:00:15 Overweig ht [id number] Completed 201309/12/2020 Overweig ht;Recor ded Elsewher e: No Locat ion: [facility] S ource: EHR Supply Chain Analyst june: N Practi ce ID: 0001 Miko lable Time: 04:00:[address] [facility] 16:59:52 Speciali zed medical examinat ion Completed 201409/12/2020 Other specifie d chlamydi al diseases ;Recorde d Elsewher e: No Locat ion: [facility] S ource: EHR Supply Chain Analyst june: N Practi ce ID: 0001 Miko lable Time: 05:15:00 [address] [facility] 17:00:16 Venereal disease screenin g Completed 201409/12/2020 Screenin g examinat ion for venereal disease; Recorded Elsewher e: No Locat ion: [facility] S ource: EHR Supply Chain Analyst june: N Practi ce ID: 0001 Miko lable Time: 05:15:[address] [facility] 17:00:25 Leukorrh ea [id number] Completed 201409/12/2020 Leukorrh ea, not specifie d as infectiv e;Record ed Elsewher e: No Locat ion: [facility] S ource: EHR Supply Chain Analyst june: N Practi ce ID: 0001 Miko lable Time: 05:15:[address] [facility] 16:59:45 Acute vaginiti s [id number] Completed 201509/12/2020 Acute vaginiti s;Record ed Elsewher e: No Locat ion: [facility] S ource: EHR Supply Chain Analyst june: N Practi ce ID: 0001 Miko lable Time: 02:30:[address] [facility] 16:59:14 Hemorrho ids [id number] Completed 201509/12/2020 Hemorrho id;Recor ded Elsewher e: No Locat ion: [facility] S ource: EHR Supply Chain Analyst june: N Practi ce ID: 0001 Miko lable Time: 02:30:00 PM [address]acy Mireles [facility] 16:59:[address] Concept Completed 201509/12/2020 Encntr for general adult medical exam w/o abnormal findings ;Recorde d Elsewher e: No Locat ion: [facility] S ource: EHR Supply Chain Analyst june: N Practi ce ID: 0001 Miko lable Time: 10:30:00 AM Gracy Mireles [facility] 17:00:12 Pregnanc y detectio n examinat ion Completed 201609/12/2020 Encounte r for pregnanc y test, result positive ;Recorde d Elsewher e: No Locat ion: [facility] S ource: EHR Supply Chain Analyst june: N Practi ce ID: 0001 Miko lable Time: 09:45:00 AM Gracy Mireles [facility] 16:59:57 Secondar y amenorrh ea [id number] Completed 201609/12/2020 Secondar y amenorrh ea;Pract ice ID: [address] [facility] 06/28/202 1 17:00:08 Normal pregnanc y in kaitlina james [id number] 4106 Completed 201609/12/2020 Encounte r for supervis ion of other normal pregnanc y, 2nd trimeste r;Record ed Elsewher e: No [facility]: EHR Supply Chain Analyst june: N Practi ce ID: 0001 Miko lable Time: 08:30:00 AM [address]acy Mireles [facility] 16:59:50 Prematur e rupture of membrane s [id number] Completed 201609/12/2020 Full-ter m epi ROM, unsp time betw rupture and onset labor;Pr actice ID: [address] [facility] 17:00:02 Lacerati on of female perineum Completed 201609/12/2020 First degree perineal lacerati on during delivery ;Practic e ID: 0001 Gracy Mireles [facility], [facility] 16:59:44 Gestatio n period, 39 weeks [id number] Completed 201609/12/2020 39 weeks gestatio n of pregnanc y;Practi ce ID: [address] [facility] 16:59:40 Lochia finding Completed 201609/12/2020 Encounte r for routine postpart um follow-u p;Record ed Elsewher e: No Locat ion: [facility] S ource: EHR Supply Chain Analyst june: N Practi ce ID: 0001 Miko lable Time: 09:45:00 AM Gracy Mireles [facility] 16:59:47 Uses combined oral contrace ption [id number] Completed 201709/12/2020 Encounte r for initial prescrip tion of contrace ptive pills;Re corded Elsewher e: No Locat ion: Pedro Luis [facility] S ource: EHR Supply Chain Analyst june: N Ken ce ID: 0001 Miko lable Time: 10:15:00 AM Gracy Mireles [facility] 16:59:20 Body mass index 25-29 - overweig [id number] Completed 201709/12/2020 Body mass index (BMI) 28.0-28. 9, adult;Re corded Elsewher e: No Locat ion: Pedro Luis [facility] S ource: EHR Supply Chain Analyst june: N Ken ce ID: 0001 Miko lable Time: 10:15:00 AM Gracy Mireles [facility] 16:59:19 Screenin g for malignan t neoplasm of cervix Completed 201709/12/2020 Screenin g for malignan t neoplasm s of the cervix;R ecorded Elsewher e: No [facility]at ion[facility] N Ken ce ID: 0001 Miko lable Time: 10:15:00 AM Gracy Mireles [facility] 17:00:[address] Concept Completed 201809/12/2020 Encntr for building performance specialist exam (general ) (routine ) w/o abn findings ;Recorde d Elsewher e: No Locat ion: [facility] S ource: EHR Supply Chain Analyst june: N Ken ce ID: 0001 Miko lable Time: 11:15:00 AM Gracy Mireles [facility] 17:00:13 Pregnanc y [id number] Completed 202412/29/[address] [facility] 5 10:32:08 Multigra james of advanced maternal age [id number] Completed [address] [facility] 5 14:42:40 Problem Notes None recorded. Procedures Surgical History Date Name Laterality Status Provider Name and Address Organization Details Recorded Time 09/13/19 21 Date of Last Pap Smear completed Norma Freeamn [facility] 12/03/2023 17:17:36 03/18/19 14 Hysteroscopy completed Gracy Mireles [facility] 09/12/2020 17:03:41 Imaging Results None recorded. [...] e: Yes Loca tion: [facility] Jamie odify By: ary marin DateTime [...] Prescrib ed Elsewher e: Yes Loca tion: [facility] odify By: justina Abbott ncounter DateTime : 09/01/19 14 10:30:00 AM Not Available Not Available Not Available prednison e 50 mg tablet TAKE 1 TABLET BY MOUTH DAILY 05/06 completed Not Available Not Available Not Available Vitamin D2 1,250 mcg (50,000 unit) capsule take 1 capsule (39658VD ITS) by oral route every week 08/31 completed Prescrib ed Elsewher e: No Locat ion: [facility] odify By: [email or web address] En counter DateTime : 01/29/20 13 11:56:09 AM Not Available Not Available Not Available norethind lisa (contrace ptive) 0.35 mg tablet take 1 tablet by oral route every day 12/16 completed Prescrib ed Elsewher e: No Locat ion: [facility] odify By: justina [email or web address] DateTime : 09/01/19 14 10:30:00 AM Not Available Not Available Not Available sertralin e 20 mg/mL oral concentra te 04/18 completed Prescrib ed Elsewher e: Yes Loca tion: [facility] odify By: [email or web address] Encount er DateTime : 07/06/19 16 02:30:00 [...] Prescrib ed Elsewher e: No Locat ion: [facility] odify By: justina Abbott ncounter DateTime : 10/23/19 14 09:00:00 AM Not Available Not Available Not Available erythromy michel with ethanol 2 % topical gel apply by topical route 2 times every day a thin layer to the affected area(s) in the morning and evening 01/27 completed Prescrib ed Elsewher e: No Locat ion: [facility] odify By: parag Abbott [email or web address] DateTime : 01/29/20 13 11:56:09 AM Not Available Not Available Not Available Duac 1.2 % (1 % base)-5 % topical gel apply by topical route 2 times every day to the affected area(s) in the morning and evening 12/16 completed Prescrib ed Elsewher e: Yes Loca tion: [facility] odify By: ary marin DateTime : [...] e: No Locat ion: [facility] odify By: alonso [email or web address] DateTime : 12/17/19 13 05:15:00 PM Not Available Not Available Not Available 28 mg iron-800 mcg tablet 07/19 completed Prescrib ed Elsewher e: Yes Loca tion: [facility] odify By: [email or web address] Encount er DateTime : 04/18/19 19 11:15:00 AM Not Available Not Available Not Available One Daily 27 mg iron-800 mcg tablet take 1 tablet by oral route every day 06/30 completed Prescrib ed Elsewher e: Yes Loca tion: [facility] odify By: parag [email or web address] DateTime : 01/28/20 14 04:00:00 PM Not Available Not Available Not Available Anusol-HC 2.5 % topical cream with perineal applicato r apply by topical route 2 times every day to the affected area(s) 08/01 completed Prescrib terri Peoples e: No Locat ion: [facility] Jamie gar By: [email or web address] Encounrubina r DateTime : 07/06/19 02:30:00 PM Not Available Not Available Not Available Vitals Date Recorded Body height Body mass index (BMI) Body weight Systolic And Diastolic Provider Name and Address Organization Details Last Updated DateTime 12/29/2024 163.2 cm 33.2 kg/m2 88067.51 g 111/76 mm[Hg] Christina Osorio [place] - [facility] 12/29/2024 10:30:01 Social History Question Answer Notes LastModified by Organizat ion Details LastModified Time Do You Have An Advance Directive? No Information n ot available 11/04/2024 How Many Years Have You Consumed Alcohol? 4 [email or web address] Information not available 11/04/2024 Are You Blind Or Do You Have Difficulty Seeing? No [email or web address] Information not available 11/04/2024 What Is Your Level Of Caffeine Consumption? Moderate Information not available 11/04/2024 How Much Tobacco Do You Chew? None [email or web address] Information not available 11/04/2024 In The 14 Days Before Symptom Onset, Have You Had Close Contact With A Laboratory-confirme d COVID-19 While That Case Was Ill? No [email or web address] Information n ot available 11/04/2024 In The 14 Days Before Symptom Onset, Have You Had Close Contact With A Person Who Is Under Investigation For COVID-19 While That Person Was Ill? No [email or web address] Information not available 11/04/2024 Have You Been To An Area Known To Be High Risk For COVID-19? No [email or web address] Information not available 11/04/2024 Are You Deaf Or Do You Have Serious Difficulty Hearing? No Information not available 11/04/2024 What Type Of Diet Are You Following? REGULAR [email or web address] Information n ot available 11/04/2024 What Is The Highest Grade Or Level Of School You Have Completed Or The Highest Degree You Have Received? [id number] [email or web address] Information not available 11/04/2024 Are There Any Guns Present In Your Home? No [email or web address] Information not available 11/04/2024 Do You Use Protection During Sex? No [email or web address] Information not available 11/04/2024 Do You Use Your Seat Belt Or Car Seat Routinely? Yes [email or web address] Information not available 11/04/2024 Do You Have Smoke And Carbon Monoxide Detectors In Your Home? Yes [email or web address] Information not available 11/04/2024 How Much Tobacco Do You Smoke? No [email or web address] Information not available 11/04/2024 Do You Use Sunscreen Routinely? Yes [email or web address] Information not available 11/04/2024 Have You Used IV Drugs? No Information not available 11/04/2024 Do You Have Difficulty Walking Or Climbing Stairs? No Information not available 05/30/2022 Sex: Unknown Functional Status Question Answer Note LastModified by Organizat ion Details LastModified Time Do you use any illicit or recreational drugs? No [email or web address] Information not available 11/04/2024 What is your level of alcohol consumption? Occasional [email or web address] Information not available 11/04/2024 Are you able to walk independently without assistance or assistive devices? YESWOREST [email or web address] Information not available 11/04/2024 Are you able to care for yourself independently? 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 No Information not available 05/30/2022 What is your exercise level? Occasional Information not available 11/04/2024 Mental Status Question Answer Note LastModified by Organization D etails LastModified Time Do you feel stressed (tense, restless, nervous, or anxious, or unable to sleep at night)? [id number] [email or web address] Information not available 11/04/2024 Family History Relationship Description Onset Age of this Age Resolved Age Notes LastModified by Organization Details LastModified Time Maternal Grandmother Malignant neoplasm of stomach [email or web address] Not available 2024 10:21:44 Father Atrial fibrillation [email or web address] Not available 10:21:44 Father Cerebrovascu lar accident [email or web address] Not available 16:23:20 Father Hypertensive disorder [email or web address] Not available 2024 16:23:20 Sister Malignant neoplasm of breast [email or web address] Not available 05/16 13:00:13 Mother Asthma [email or web address] Not available 11/04/2024 16:23:20 Maternal Grandfather Malignant neoplasm of colon [email or web address] Not available 2024 16:23:20 Paternal Grandmother Malignant neoplasm of breast [email or web address] Not available 2024 16:23:20 Medical History Condition [...] ICD10 Code Diagnosis IMO Codes Diagnosis Note [id number] VALERIO EID MD [address] [address] 12/29/2024 10:17:39 12/29/2024 10:52:10 state [id number] Z39.2 [id number] S/p 4 weeks ago here today for [...] Haney Member ID Guarantor Name 12/29/2024 2 [facility] [id number] [place] Michela Kinney [id number] Violetta Kinney 12/29/2024 1 [facility] [id number] Violetta Kinney [id number] Violetta Kinney Notes Date Note Type Note [...] this time. Partner considering vasectomy. Christina dang [facility] 12/29/2024 10:52:46 OBGyn Episode Ob Episode Information Episode Created Date Number of Fetuses Patient Bloodtype Patient rh Status Prepregnancy Weight lbs Domestic Partner Domestic Partner Phone Father Name Development Rep Status 06/03/19 25 1 A Positive 203 CLOSED Fetus Data First Name Last Name Admitted to NICU Weight (g) Sex Living Outcome Pediatric Complications Fetus ID Race Codes Race Delivery Type Tonja dominique false 3912.23 1 M true Full Term [id number] Vaginal Delivery Problems Problem Notes Problem Name Start Date End Date Resolution Snomed Code Not e Multigravida of advanced maternal age 0508/06/2024 [id number] Rogelio Calculation Initial Rogelio Date Initial Exam [...] Sound Latest Days Gestation 07/21/19 25 20 [email or web address] 06/02/2024 12/06/19 25 4 Pre- Flowsheet Flowsheet [...] Weight in lbs Pre/Post Dialysis Refused Weight 204.608160039050 BP Diastolic BP Location Tested BP Systolic BP Type 75 L arm 123 sitting Fetus Heart Rate Present A 158 Fetus Movement A No Comments Patient presents to [facility] care. Hx of 2 uncomplicated SVDs. otherwise uncomplicated. No nausea or cramping. NT/NB wnl today, LR male NIPT! New OB labs also wnl. RTC 4 weeks for routine care. Flowsheet Date 07/01/2024 Sarmiento Score Blood Edema Fundus Height Fundus Units Glucose Ketones Leukocytes Nitrite Labor Signs Protein Cervic Dilation Cervic Effacement Cervic Station Type Weight in lbs Pre/Post Dialysis Refused Weight 207.745914527529 BP Diastolic BP Location Tested BP Systolic [...] Weight in lbs Pre/Post Dialysis Refused Weight 209.356032844479 BP Diastolic BP Location Tested BP Systolic [...] Weight in lbs Pre/Post Dialysis Refused Weight 210.599686270476 BP Diastolic BP Location Tested BP Systolic [...] Weight in lbs Pre/Post Dialysis Refused Weight 211.514840057172 BP Diastolic BP Location Tested BP Systolic [...] Type Weight in lbs Pre/Post Dialysis Refused 213.139341112019 BP Diastolic BP Location Tested BP Systolic [...] Type Weight in lbs Pre/Post Dialysis Refused 168.805630812893 BP Diastolic BP Location Tested BP Systolic [...] Weight in lbs Pre/Post Dialysis Refused Weight 221.151125409765 BP Diastolic BP Location Tested BP Systolic [...] Type Weight in lbs Pre/Post Dialysis Refused 220.581903136291 BP Diastolic BP Location Tested BP Systolic [...] Weight in lbs Pre/Post Dialysis Refused Weight 222.5245563829 BP Diastolic BP Location Tested BP Systolic [...] Weight in lbs Pre/Post Dialysis Refused Weight 218.442818893619 BP Diastolic BP Location Tested BP Systolic [...] Weight in lbs Pre/Post Dialysis Refused Weight 195.275835237309 BP Diastolic BP Location Tested BP Systolic [...]
--- NOTE | 2025-03-08 07:16 | WPDHPUPDATE1 ---
History and Physical Update Update Date/Time: 03/08/25 07:16 History and Physical has been reviewed, including an updated exam of the patient. There are NO changes in the patient's condition. Risks, benefits, and alternatives have been discussed and questions answered. Patient agrees to proceed with procedure.
[2025-03-08] MEDS: LACTATED RINGERS 1,000 ML 30 ML IV CONT ×2 (07:54→11:19)
[2025-03-08] MEDS: ACETAMINOPHEN 500 MG TABLET 1000 MG PO (07:57)
[2025-03-08] MEDS: KETOROLAC 15 MG/ML VIAL (*BKC) IV PUSH ×2 (07:58→12:43)
--- NOTE | 2025-03-08 08:37 | P.PNAN_ITS ---
Anes - Initial Pre Proc Eval Procedure: Operation Date: 03/08/25 09:00 Proposed Procedures p Laparoscopic Cholecystectomy - Christie Ortiz MD Date/Time: 03/08/25 08:37 Surgeon: Christie Ortiz MD Pre Op Diagnosis: chronic calculous cholecystitis Patient Data Age: 34 Gender: F Height: 1.68 m Weight: 92.5 kg Last Vital Signs Temp 36.1 C L 03/08/25 07:10 Pulse 82 03/08/25 07:10 Resp 14 03/08/25 07:10 BP 111/62 03/08/25 07:10 Pulse Ox 99 03/08/25 07:10 Allergies Allergy/AdvReac Type Severity Reaction Status Date / Time No Known Allergies Allergy Unknown Verified 03/08/25 07:37 Home Medications ?Medication ?Instructions ?Recorded ?Confirmed ?Type vits no.126-ferrous fum 1 tablet PO DAILY 03/08/25 History 28 mg iron-folic acid 800 mcg tablet (Classic ) Patient hx anesthesia problems: none Family hx anesthesia problems: none Results Review: All pre-operative results and documents have been reviewed as part of the pre- operative evaluation. [facility] Past Medical History Medical History Migraine headache with aura Right wrist pain Sacroiliac inflammation Family History Family History Grandparent Diabetes mellitus Family history of malignant neoplasm of stomach Carcinoma of colon Family history of malignant neoplasm of breast Depression Sibling Family history of migraine headaches Breast cancer stage 1 remission Depression Father Hypertension Cerebrovascular accident Heart problem Mother Asthma Grandparent Cancer Grandparent Cancer Social History Social History Smoking status: Never smoker Second hand tobacco smoke exposure: No Alcohol intake: never Substance use: never Substance use type: does not use Lack of Transportation: No Lack of Food: Never True Current Housing: I Have Housing Concerned About Future Housing: No Difficulty Paying Gas/Electric Bills: No Difficulty Paying for Meds: No Currently Unemployed: No Education: Bachelor's Degree Difficulty w/ Childcare or Family Care: No Living arrangements: with family Occupation/Education: occupation Additional occupation/education comments: [employer] Gender identity (if verbalized by the patient): Female Spiritual care concerns: No Anes - Eval Final PreProcedure Day of Procedure 03/08/25 08:37 Patient weight: obese Heart: regular rate and rhythm Lungs: clear to auscultation Airway: Mallampati scale class II Neurological: alert and oriented Last oral intake: >/= 8 hours ASA classification: II Emergent: no Anesthetic plan: proceed Anesthesia type and monitoring: general ETT and standard monitoring Results Review: All pre-operative results and documents have been reviewed as part of the pre- operative evaluation. Informed Consent: The patient's anesthetic plan and its attendant risks and benefits were discussed with the patient/family/POA. Questions were solicited and answers provided to the satisfaction of the patient/family/POA.
--- NOTE | 2025-03-08 08:37 | P.PNAN_ITS ---
Anes - Initial Pre Proc Eval Procedure: Operation Date: 03/08/25 09:00 Proposed Procedures p Laparoscopic Cholecystectomy - Christie Ortiz MD Date/Time: 03/08/25 08:37 Surgeon: Christie Ortiz MD Pre Op Diagnosis: chronic calculous cholecystitis Patient Data Age: 34 Gender: F Height: 1.68 m Weight: 92.5 kg Last Vital Signs Temp 36.1 C L 03/08/25 07:10 Pulse 82 03/08/25 07:10 Resp 14 03/08/25 07:10 BP 111/62 03/08/25 07:10 Pulse Ox 99 03/08/25 07:10 Allergies Allergy/AdvReac Type Severity Reaction Status Date / Time No Known Allergies Allergy Unknown Verified 03/08/25 07:37 Home Medications ?Medication ?Instructions ?Recorded ?Confirmed ?Type vits no.126-ferrous fum 1 tablet PO DAILY 03/08/25 History 28 mg iron-folic acid 800 mcg tablet (Classic ) Patient hx anesthesia problems: none Family hx anesthesia problems: none Results Review: All pre-operative results and documents have been reviewed as part of the pre- operative evaluation. [facility] Past Medical History Medical History Migraine headache with aura Right wrist pain Sacroiliac inflammation Family History Family History Grandparent Diabetes mellitus Family history of malignant neoplasm of stomach Carcinoma of colon Family history of malignant neoplasm of breast Depression Sibling Family history of migraine headaches Breast cancer stage 1 remission Depression Father Hypertension Cerebrovascular accident Heart problem Mother Asthma Grandparent Cancer Grandparent Cancer Social History Social History Smoking status: Never smoker Second hand tobacco smoke exposure: No Alcohol intake: never Substance use: never Substance use type: does not use Lack of Transportation: No Lack of Food: Never True Current Housing: I Have Housing Concerned About Future Housing: No Difficulty Paying Gas/Electric Bills: No Difficulty Paying for Meds: No Currently Unemployed: No Education: Bachelor's Degree Difficulty w/ Childcare or Family Care: No Living arrangements: with family Occupation/Education: occupation Additional occupation/education comments: [employer] Gender identity (if verbalized by the patient): Female Spiritual care concerns: No Anes - Eval Final PreProcedure Day of Procedure 03/08/25 08:37 Patient weight: obese ASA classification: II Emergent: no Anesthetic plan: proceed Anesthesia type and monitoring: general ETT and standard monitoring Results Review: All pre-operative results and documents have been reviewed as part of the pre- operative evaluation. Informed Consent: The patient's anesthetic plan and its attendant risks and benefits were discussed with the patient/family/POA. Questions were solicited and answers provided to the satisfaction of the patient/family/POA.
[2025-03-08] MEDS: SCOPOLAMINE 1 MG PATCH 1 PATCH TRANSDERM (08:42)
[2025-03-08 08:43] LABS: BEDSIDEPREGUCG Negative (Negative)
[2025-03-08] MEDS: ceFAZolin 2 GM in SODIUM CHLORIDE 0.9% IV 50 ML 100 ML IVPB (10:18)
[2025-03-08] MEDS: BUPIVACAINE/EPINEPHRINE 0.5% 30 ML VIAL INFILTRATE (10:18)
--- NOTE | 2025-03-08 10:41 | S_PTH ---
PATIENT: Violetta Kinney LOC: [facility] U#:[id number] AGE/SX: 34/F ROOM: RE03/08/[address]: Christie Ortiz MD : 1990 BED: DIS: 03/08/2025 SPEC #: [id number] RECD: 03/08/25 11:27 STATUS: GINA RELaurence #: [id number] CLARICE: 03/08/25 10:[address]: Christie Ortiz DEPT: [facility] Surgical RECD BY: Shaunna Quintanilla ENTERED: 03/08/25 11:27 SP TYPE: Surgical OTHR DR: Johnnie Steel MD Tissues: A - Gallbladder Procedures: Hematoxylin and Eosin Stain Gross and Microscopic Level 3
--- NOTE | 2025-03-08 11:23 | P.OP_ITS ---
Procedure Note - Detailed Date of Procedure 03/08/25 Pre-op Diagnosis Chronic cholecystitis Post-op Diagnosis Same Procedure Performed Laparoscopic cholecystectomy Surgeon Christie Ortiz MD Anesthesia General Indications 34-year-old female presented to the office complaining of postprandial right upper quadrant abdominal pain associated with nausea and vomiting. Workup including imaging significant for chronic cholecystitis. Findings mild cholecystitis Description of Procedure The patient was taken to the operating room placed in the supine position. After adequate induction of general anesthesia, the patient was prepped and draped in normal sterile fashion. A time-out was then performed to verify the patient's identity as well as the procedure being performed. I then made a 5 mm incision in the infraumbilical region. Through this, a Veress needle was placed into the peritoneal cavity and CO2 gas was then insufflated. After adequate pneumoperitoneum was achieved, the Veress needle was removed and a 5 mm optiview trocar was placed through this incision under direct visualization. I then placed the laparoscope through this trocar site and under direct visualization placed a further 12 mm subxiphoid port as well as 2 additional 5 mm ports in the right upper abdomen. The gallbladder was then identified and was noted to be mildly inflamed, distended. I was able to place a grasper at the dome of the gallbladder and this was retracted anterior and cephalad up over the liver. A 2nd retractor was then placed at the infundibulum and retracted laterally, this allowed visualization of the triangle of Calot. I then was able to visualize the cystic duct in its entirety from its proximal insertion into the gallbladder, to its distal junction with the common hepatic/common bile duct ju nction. At this point, I carefully skeletonized the proximal cystic duct with the [place] dissector. I then clipped and transected the proximal cystic duct. Next I visualized the cystic artery. Again the artery was skeletonized, clipped, and transected. I then used the Bovie cautery to take down the peritoneal attachments of the gallbladder off the liver bed. Once the gallbladder specimen was completely detached, an endo-pouch was placed through the 12 mm port site. I then placed the gallbladder specimen into the Endo pouch and removed the endo-pouch from the 12 mm port site. The specimen will now be sent to pathology for further review. I then copiously irrigated the right upper quadrant. Some mild oozing was noted in the liver bed and this was controlled with the bovie cautery. Hemostasis was noted in the liver bed, the clips were noted to be in good position on both the cystic duct stump and the cystic artery stump. No other pathology was noted in the right upper quadrant. I then moved the laparoscope to the subxiphoid port. No iatrogenic injury or other pathology was noted in the lower abdomen. I then closed the 12 mm trocar site under direct visualization using the Scot cone and 0 Vicryl suture. At this point, the abdomen was desufflated and all ports removed. All port sites were then closed with 4.O Monocryl subcuticular sutures. Dermabond was placed on each incision. The patient tolerated the procedure well, was extubated in the operating room postoperative and will be transferred to the recovery room in stable condition Estimated Blood Loss 10 Drains No Packing No Pathology Yes Complications No immediate complications Condition Stable Disposition PACU [facility] Billing Surgery - Charge Forward: Surgery Billing
[2025-03-08] MEDS: fentaNYL CITRATE INJ (*CRX) 100 MCG/2 ML VIAL 25 MCG IV PUSH ×5 (11:34→13:20)
== END 2025-03-08 14:32 | disposition home or self-care (01) ==
PROVIDERS: PCP Family Medicine; Visit Provider Surgery
PROC: 0FT44ZZ Resection of Gallbladder, Percutaneous Endoscopic Approach (ICD-10-PCS; CPT 47562; principal; 2025-03-08 09:00)
DX: K80.10 Calculus of gallbladder with chronic cholecystitis without obstruction (principal); E66.9 Obesity, unspecified; Z68.32 Body mass index [BMI] 32.0-32.9, adult
CPT/HCPCS: 47562; 88304; J0690; A9270; J1885; J2003; J2250; J2405; J2704; J3010; J7120